=== PATIENT | male | born 1960 | race Hispanic/Latino ===

== ENCOUNTER → 2017-02-07 | Outpatient (CLI) | payer OTHER ==
[~2017-02-07] MED LIST: ASPI81TA40 PO; BRIM5DRO OU; DOCUSATE PO; DOXY100C2 PO; ERGO500014 PO; FAMO-136 PO; GABA-529 PO; GABA-531 PO; INSU100I15 SQ; INSU100I21 SQ; LEVO500T2 PO; POLY17PO4 PO; PRED5TAB PO; SANTYL AUTOSUB TO MEDIHONEY FOR INPT TP ONE; SENN-175 PO; TACR1CAP18 PO; TRAV2.5D OU; VALG450T3 PO; VITAMIN B PO
[2017-02-07 16:21] VITALS: BP 112/69
== END | disposition home or self-care (01) ==
LOC: WHH 08:00
PROVIDERS: ATTEND Podiatrist Foot & Ankle Surgery
DX: T87.89 Other complications of amputation stump (principal); E11.621 Type 2 diabetes mellitus with foot ulcer; L97.521 Non-pressure chronic ulcer of other part of left foot limited to breakdown of skin; E11.42 Type 2 diabetes mellitus with diabetic polyneuropathy; E11.52 Type 2 diabetes mellitus with diabetic peripheral angiopathy with gangrene; E11.22 Type 2 diabetes mellitus with diabetic chronic kidney disease; I13.2 Hypertensive heart and chronic kidney disease with heart failure and with stage 5 chronic kidney disease, or end stage renal disease; N18.6 End stage renal disease; I50.9 Heart failure, unspecified; E11.65 Type 2 diabetes mellitus with hyperglycemia; I25.10 Atherosclerotic heart disease of native coronary artery without angina pectoris; Z87.891 Personal history of nicotine dependence; Z95.1 Presence of aortocoronary bypass graft; Z79.52 Long term (current) use of systemic steroids; Z94.0 Kidney transplant status; Z99.2 Dependence on renal dialysis; Z79.4 Long term (current) use of insulin; Y83.5 Amputation of limb(s) as the cause of abnormal reaction of the patient, or of later complication, without mention of misadventure at the time of the procedure
CPT/HCPCS: 11042; 11045; A4450; A6209

== ENCOUNTER → 2017-02-14 | Outpatient (CLI) | payer OTHER ==
[~2017-02-14] MED LIST changes: -SANTYL AUTOSUB TO MEDIHONEY FOR INPT TP ONE
[2017-02-14 15:13] VITALS: BP 131/75
== END | disposition home or self-care (01) ==
LOC: WHH 07:50
PROVIDERS: ATTEND Podiatrist Foot & Ankle Surgery
DX: T87.89 Other complications of amputation stump (principal); E11.621 Type 2 diabetes mellitus with foot ulcer; L97.522 Non-pressure chronic ulcer of other part of left foot with fat layer exposed; L97.511 Non-pressure chronic ulcer of other part of right foot limited to breakdown of skin; E11.42 Type 2 diabetes mellitus with diabetic polyneuropathy; E11.65 Type 2 diabetes mellitus with hyperglycemia; E11.51 Type 2 diabetes mellitus with diabetic peripheral angiopathy without gangrene; E11.22 Type 2 diabetes mellitus with diabetic chronic kidney disease; I13.2 Hypertensive heart and chronic kidney disease with heart failure and with stage 5 chronic kidney disease, or end stage renal disease; N18.6 End stage renal disease; I50.9 Heart failure, unspecified; I25.10 Atherosclerotic heart disease of native coronary artery without angina pectoris; Z99.2 Dependence on renal dialysis; Z79.4 Long term (current) use of insulin; Z94.0 Kidney transplant status; Z87.891 Personal history of nicotine dependence; Z95.1 Presence of aortocoronary bypass graft; Y83.5 Amputation of limb(s) as the cause of abnormal reaction of the patient, or of later complication, without mention of misadventure at the time of the procedure
CPT/HCPCS: 11042; A6209

== ENCOUNTER → 2017-02-21 | Outpatient (CLI) | payer OTHER ==
[2017-02-21 13:08] VITALS: BP 114/72
== END | disposition home or self-care (01) ==
LOC: WHH 07:45
PROVIDERS: ATTEND Podiatrist Foot & Ankle Surgery
DX: T87.89 Other complications of amputation stump (principal); E11.621 Type 2 diabetes mellitus with foot ulcer; L97.521 Non-pressure chronic ulcer of other part of left foot limited to breakdown of skin; I25.10 Atherosclerotic heart disease of native coronary artery without angina pectoris; E11.22 Type 2 diabetes mellitus with diabetic chronic kidney disease; I13.2 Hypertensive heart and chronic kidney disease with heart failure and with stage 5 chronic kidney disease, or end stage renal disease; N18.6 End stage renal disease; I50.9 Heart failure, unspecified; E11.42 Type 2 diabetes mellitus with diabetic polyneuropathy; E11.52 Type 2 diabetes mellitus with diabetic peripheral angiopathy with gangrene; Z99.2 Dependence on renal dialysis; Z94.0 Kidney transplant status; Z79.4 Long term (current) use of insulin; Z87.891 Personal history of nicotine dependence; Z95.1 Presence of aortocoronary bypass graft; Y83.5 Amputation of limb(s) as the cause of abnormal reaction of the patient, or of later complication, without mention of misadventure at the time of the procedure
CPT/HCPCS: 11042; A6209; L3260

== ENCOUNTER 2017-02-23 10:28 | Inpatient (IN) | payer OTHER ==
[~2017-02-23] VITALS: Ht 167.6 cm; Wt 67.1 kg
[~2017-02-23 10:28] MED LIST changes: -DOXY100C2 PO; -GABA-531 PO; -LEVO500T2 PO
[2017-02-23 12:41] LABS: BASOPHILS % (AUTO) 0.2 % (0.0-5.0); EOSINOPHILS % (AUTO) 0.2 % (0.0-8.0); HEMATOCRIT 37.7 % (42-54); LYMPHOCYTES % (AUTO) 18.1 % (21.0-51.0); MEAN CORPUSCULAR HEMOGLOBIN 31.9 pg (27.0-33.0); MEAN CORPUSCULAR HGB CONC 34.9 g/dL (32.0-36.0); MEAN CORPUSCULAR VOLUME 91.2 fL (79-99); MONOCYTES % (AUTO) 9.3 % (3.0-13.0); NEUTROPHILS % (AUTO) 72.2 % (40.0-77.0); PLATELET COUNT (AUTO) 103 K/uL (130-400); RED BLOOD CELL COUNT(AUTO) 4.14 MIL/uL (4.50-6.20); RED CELL DISTRIBUTION WIDTH 14.2 % (11.0-15.5); WHITE BLOOD COUNT (AUTO) 9.3 K/uL (4.8-10.8)
[2017-02-23 12:47] LABS: POTASSIUM 3.9 mmol/L (3.5-5.1)
[2017-02-23 12:51] LABS: ALBUMIN 3.3 g/dL (3.5-5.0); BILIRUBIN,TOTAL 0.9 mg/dL (0.2-1.0); TOTAL PROTEIN, SERUM 8.2 g/dL (6.0-8.3)
[2017-02-23 12:54] LABS: INR 1.1 (0.85-1.15); PARTIAL THROMBOPLASTIN TIME 30.8 SEC (26.3-35.5); PROTHROMBIN TIME 11.5 SEC (9.6-11.6)
[2017-02-23] MEDS ORDERED: SODIUM CHLORIDE 0.9% 1000ML 1,000 ML IV SCH (13:16)
[2017-02-23] MEDS ORDERED: MEROPENEM 500MG+NS 50ML 50 ML IV SCH (13:30)
[2017-02-23] MEDS ORDERED: GUAIFENESIN-DM 200/20 MG 10 ML PO PRN (13:30)
[2017-02-23] MEDS ORDERED: MORPHINE SULFATE 4 MG/1ML SYG IV PRN (13:30)
[2017-02-23] MEDS ORDERED: ONDANSETRON HCL 4 MG/2 ML VIAL IV PRN (13:30)
[2017-02-23] MEDS ORDERED: MAG HYDROX/AL HYDROX/SIMETH ES 30 ML SUSP UDCUP PO PRN (13:30)
[2017-02-23] MEDS ORDERED: ACETAMINOPHEN 325 MG TAB PO PRN ×2 (13:30)
[2017-02-23] MEDS ORDERED: LACTULOSE 20 GM/30 ML UDCUP PO PRN (13:30)
[2017-02-23] MEDS ORDERED: NITROGLYCERIN 0.4 MG SL TAB SL PRN (13:30)
[2017-02-23] MEDS ORDERED: ACETAMINOPHEN-CODEINE 300/30MG TAB PO PRN ×2 (13:30)
[2017-02-23] MEDS ORDERED: MORPHINE SULFATE 2 MG/ML 1ML SYG IV PRN (13:30)
[2017-02-23] MEDS ORDERED: HYDRALAZINE HCL 20 MG/ML VIAL IV PRN (13:30)
[2017-02-23] MEDS ORDERED: MEROPENEM 500 MG VIAL ONE (14:23)
[2017-02-23] MEDS ORDERED: DOXYCYCLINE 100MG+NS 250ML 250 ML IV ONE (14:54)
[2017-02-23 16:00] VITALS: BP 148/80
[2017-02-23] MEDS ORDERED: GABA-531 PO (16:59)
[2017-02-23] MEDS ORDERED: SODIUM CHLORIDE 0.9% 1000ML 1,000 ML IV ONE (18:37)
[2017-02-23 19:45] VITALS: BP 136/70
[2017-02-23] MEDS: FAMOTIDINE/PF 20 MG/2 ML VIAL IV SCH (21:17)
[2017-02-23] MEDS: MEROPENEM 500 MG VIAL IVP SCH (21:18)
[2017-02-24] VITALS (7 sets, daily range): BP systolic 109–142; BP diastolic 64–87
[2017-02-24] MEDS ORDERED: DEXTROSE 50%-WATER 50 ML DISP.SYRIN IV PRN (00:45)
[2017-02-24] MEDS ORDERED: GLUCAGON 1MG KIT 1 MG ML IM PRN (00:45)
[2017-02-24] MEDS ORDERED: DOXYCYCLINE 100MG+NS 250ML 250 ML IV ONE (02:04)
[2017-02-24] MEDS: DOXYCYCLINE 100MG+NS 250ML 250 ML IV SCH ×2 (02:23→12:59)
[2017-02-24] MEDS ORDERED: LIDOCAINE HCL-MPF 1% 2ML VIAL IVP PRN (02:30)
[2017-02-24] MEDS ORDERED: POTASSIUM CHLORIDE 20MEQ/100ML 100 ML IV PRN (02:30)
[2017-02-24] MEDS ORDERED: POTASSIUM CHLORIDE 20 MEQ ERTAB PO PRN (02:30)
[2017-02-24] MEDS ORDERED: POTASSIUM CHLORIDE 10% ELIXIR 20 MEQ/15 ML UDCUP PO PRN (02:30)
[2017-02-24 05:21] LABS: BASOPHILS % (AUTO) 0.3 % (0.0-5.0); EOSINOPHILS % (AUTO) 0.7 % (0.0-8.0); MEAN CORPUSCULAR HEMOGLOBIN 31.7 pg (27.0-33.0); MEAN CORPUSCULAR HGB CONC 34.4 g/dL (32.0-36.0); MEAN CORPUSCULAR VOLUME 92.3 fL (79-99); MONOCYTES % (AUTO) 11.3 % (3.0-13.0); NEUTROPHILS % (AUTO) 47.7 % (40.0-77.0); PLATELET COUNT (AUTO) 102 K/uL (130-400); RED CELL DISTRIBUTION WIDTH 14.5 % (11.0-15.5); WHITE BLOOD COUNT (AUTO) 6.2 K/uL (4.8-10.8)
[2017-02-24 05:26] LABS: POTASSIUM 4.2 mmol/L (3.5-5.1)
[2017-02-24] MEDS: MEROPENEM 500 MG VIAL IVP SCH ×2 (05:40→14:49)
[2017-02-24] MEDS: INSULIN HUMULIN R 100 UNIT/ML 3ML SQ SCH ×4 (06:09→20:50)
[2017-02-24] MEDS: SENNOSIDES 8.6 MG TABLET PO SCH ×2 (09:00→20:44)
[2017-02-24] MEDS: PREDNISONE 5 MG TABLET PO SCH (09:00)
[2017-02-24] MEDS: TIMOLOL MALEATE 0.5% 5 ML BOTTLE OU SCH ×2 (09:00→20:43)
[2017-02-24] MEDS: BRIMONIDINE TARTRATE 0.2% 5 ML BOTTLE OU SCH ×2 (09:00→20:42)
[2017-02-24] MEDS: GABAPENTIN 100 MG CAPSULE PO SCH (09:00)
[2017-02-24] MEDS: TACROLIMUS 1 MG CAPSULE PO SCH ×2 (09:00→20:44)
[2017-02-24] MEDS: FAMOTIDINE/PF 20 MG/2 ML VIAL IV SCH ×2 (09:17→20:44)
[2017-02-24] MEDS: INSULIN LISPRO 100 UNIT/ML 3ML SQ SCH ×2 (13:59→17:16)
[2017-02-24] MEDS ORDERED: INSULIN DETEMIR 10ML 100 UNIT/ML 10ML SQ SCH (14:00)
[2017-02-24] MEDS: LATANOPROST 2.5 ML DROPS OU SCH (20:43)
[2017-02-24] MEDS: GABAPENTIN 300 MG CAPSULE PO SCH (20:43)
[2017-02-25] MEDS: MEROPENEM 500 MG VIAL IVP SCH ×4 (01:49→22:17)
[2017-02-25] MEDS: DOXYCYCLINE 100MG+NS 250ML 250 ML IV SCH ×2 (01:49→13:32)
[2017-02-25 03:00] VITALS: BP 110/63
[2017-02-25 05:09] LABS: BASOPHILS % (AUTO) 0.3 % (0.0-5.0); EOSINOPHILS % (AUTO) 0.7 % (0.0-8.0); HEMATOCRIT 35.1 % (42-54); LYMPHOCYTES % (AUTO) 36.9 % (21.0-51.0); MEAN CORPUSCULAR HGB CONC 34.5 g/dL (32.0-36.0); MEAN CORPUSCULAR VOLUME 92.6 fL (79-99); MONOCYTES % (AUTO) 9.1 % (3.0-13.0); PLATELET COUNT (AUTO) 103 K/uL (130-400); RED BLOOD CELL COUNT(AUTO) 3.78 MIL/uL (4.50-6.20); RED CELL DISTRIBUTION WIDTH 13.9 % (11.0-15.5); WHITE BLOOD COUNT (AUTO) 6.2 K/uL (4.8-10.8)
[2017-02-25 05:19] LABS: CREATININE 0.9 mg/dL (0.5-1.5); POTASSIUM 4.2 mmol/L (3.5-5.1)
[2017-02-25] MEDS: INSULIN HUMULIN R 100 UNIT/ML 3ML SQ SCH ×4 (06:20→21:00)
[2017-02-25] MEDS: INSULIN LISPRO 100 UNIT/ML 3ML SQ SCH ×3 (06:29→17:32)
[2017-02-25] MEDS ORDERED: INSULIN LISPRO 5 UNIT SQ SCH (07:30)
[2017-02-25 08:00] VITALS: BP 152/80
[2017-02-25] MEDS: TACROLIMUS 1 MG CAPSULE PO SCH ×2 (09:00→20:13)
[2017-02-25] MEDS: TIMOLOL MALEATE 0.5% 5 ML BOTTLE OU SCH ×2 (09:00→20:13)
[2017-02-25] MEDS: ASPIRIN 81 MG EC TAB PO SCH (09:00)
[2017-02-25] MEDS: BRIMONIDINE TARTRATE 0.2% 5 ML BOTTLE OU SCH ×2 (09:00→20:13)
[2017-02-25] MEDS ORDERED: INSULIN DETEMIR 10ML 100 UNIT/ML 10ML SQ SCH (09:00)
[2017-02-25] MEDS: GABAPENTIN 100 MG CAPSULE PO SCH (09:00)
[2017-02-25] MEDS: SENNOSIDES 8.6 MG TABLET PO SCH ×2 (09:00→20:13)
[2017-02-25] MEDS: PREDNISONE 5 MG TABLET PO SCH (09:00)
[2017-02-25] MEDS: ENOXAPARIN SODIUM 40 MG/0.4 ML SYRINGE SQ SCH (09:00)
[2017-02-25] MEDS ORDERED: INSULIN GLARGINE 100 UNITS/ML 10 ML VIAL SQ ONE (09:34)
[2017-02-25] MEDS: FAMOTIDINE/PF 20 MG/2 ML VIAL IV SCH ×2 (09:40→20:15)
[2017-02-25] MEDS: INSULIN GLARGINE 100 UNITS/ML 10 ML VIAL SQ SCH (09:43)
[2017-02-25 11:58] VITALS: BP 112/58
[2017-02-25 16:00] VITALS: BP 156/76
[2017-02-25 20:00] VITALS: BP 158/82
[2017-02-25] MEDS: LATANOPROST 2.5 ML DROPS OU SCH (20:13)
[2017-02-25] MEDS: GABAPENTIN 300 MG CAPSULE PO SCH (20:13)
[2017-02-26] VITALS (20 sets, daily range): BP systolic 103–159; BP diastolic 57–87
[2017-02-26] MEDS: DOXYCYCLINE 100MG+NS 250ML 250 ML IV SCH ×2 (01:43→13:30)
[2017-02-26 05:55] LABS: BASOPHILS % (AUTO) 0.3 % (0.0-5.0); EOSINOPHILS % (AUTO) 0.8 % (0.0-8.0); HEMATOCRIT 37.2 % (42-54); LYMPHOCYTES % (AUTO) 39.2 % (21.0-51.0); MEAN CORPUSCULAR HEMOGLOBIN 31.9 pg (27.0-33.0); MEAN CORPUSCULAR HGB CONC 34.7 g/dL (32.0-36.0); MEAN CORPUSCULAR VOLUME 91.7 fL (79-99); MONOCYTES % (AUTO) 9.4 % (3.0-13.0); NEUTROPHILS % (AUTO) 50.3 % (40.0-77.0); PLATELET COUNT (AUTO) 121 K/uL (130-400); RED BLOOD CELL COUNT(AUTO) 4.06 MIL/uL (4.50-6.20); RED CELL DISTRIBUTION WIDTH 14.1 % (11.0-15.5); WHITE BLOOD COUNT (AUTO) 6.8 K/uL (4.8-10.8)
[2017-02-26 06:03] LABS: CREATININE 0.8 mg/dL (0.5-1.5); POTASSIUM 4.2 mmol/L (3.5-5.1)
[2017-02-26] MEDS: MEROPENEM 500 MG VIAL IVP SCH ×3 (07:13→20:58)
[2017-02-26] MEDS: INSULIN HUMULIN R 100 UNIT/ML 3ML SQ SCH ×4 (07:14→21:06)
[2017-02-26] MEDS: INSULIN LISPRO 100 UNIT/ML 3ML SQ SCH ×3 (07:18→16:56)
[2017-02-26] MEDS: INSULIN GLARGINE 100 UNITS/ML 10 ML VIAL SQ SCH (08:00)
[2017-02-26] MEDS: TACROLIMUS 1 MG CAPSULE PO SCH ×2 (08:06→20:43)
[2017-02-26] MEDS: PREDNISONE 5 MG TABLET PO SCH (08:06)
[2017-02-26] MEDS: BRIMONIDINE TARTRATE 0.2% 5 ML BOTTLE OU SCH ×2 (08:08→21:00)
[2017-02-26] MEDS: FAMOTIDINE/PF 20 MG/2 ML VIAL IV SCH ×2 (08:09→20:57)
[2017-02-26] MEDS: ENOXAPARIN SODIUM 40 MG/0.4 ML SYRINGE SQ SCH (08:09)
[2017-02-26] MEDS: TIMOLOL MALEATE 0.5% 5 ML BOTTLE OU SCH ×2 (08:09→21:00)
[2017-02-26] MEDS: SENNOSIDES 8.6 MG TABLET PO SCH ×2 (08:09→20:43)
[2017-02-26] MEDS: ASPIRIN 81 MG EC TAB PO SCH (08:09)
[2017-02-26] MEDS: GABAPENTIN 100 MG CAPSULE PO SCH (08:10)
[2017-02-26] MEDS ORDERED: ERGOCALCIFEROL (VITAMIN D2) 50,000 UNIT CAPSULE PO SCH (09:00)
[2017-02-26] MEDS ORDERED: ONDANSETRON HCL 4 MG/2 ML VIAL ONE (12:33)
[2017-02-26] MEDS ORDERED: DEXAMETHASONE SOD PHOSPHATE 10MG/ML 1ML VIAL ONE (12:33)
[2017-02-26] MEDS ORDERED: GLYCOPYRROLATE 0.2 MG/ML 5 ML VIAL ONE (12:33)
[2017-02-26] MEDS ORDERED: LIDOCAINE PF 2% 5ML ABBOJECT ONE (12:33)
[2017-02-26] MEDS ORDERED: MIDAZOLAM HCL 1 MG/ML 2ML VIAL ONE (12:33)
[2017-02-26] MEDS ORDERED: PROPOFOL 10 MG/ML 20ML VIAL IV ONE (12:34)
[2017-02-26] MEDS ORDERED: FENTANYL CITRATE PF 50 MCG/1 ML 2ML VIAL ONE (12:34)
[2017-02-26] MEDS ORDERED: SODIUM CHLORIDE 0.9% 1000ML 1,000 ML IV ONE (12:42)
[2017-02-26] MEDS ORDERED: BUPIVACAINE/PF 0.5% 30ML VIAL ONE (12:58)
[2017-02-26] MEDS ORDERED: LIDOCAINE HCL 1% 20 ML VIAL ONE (12:58)
[2017-02-26] MEDS: GABAPENTIN 300 MG CAPSULE PO SCH (20:43)
[2017-02-26] MEDS: LATANOPROST 2.5 ML DROPS OU SCH (21:00)
[2017-02-26] MEDS: MUPIROCIN OINTMENT 22 GM TUBE TP SCH (22:51)
[2017-02-27] VITALS: BP 113/66
[2017-02-27] MEDS: DOXYCYCLINE 100MG+NS 250ML 250 ML IV SCH ×2 (01:46→15:13)
[2017-02-27 04:24] VITALS: BP 117/72
[2017-02-27] MEDS: MEROPENEM 500 MG VIAL IVP SCH ×3 (05:10→22:09)
[2017-02-27 05:52] LABS: HEMATOCRIT 38.2 % (42-54); MEAN CORPUSCULAR HEMOGLOBIN 32.5 pg (27.0-33.0); MEAN CORPUSCULAR HGB CONC 34.9 g/dL (32.0-36.0); MEAN CORPUSCULAR VOLUME 93.2 fL (79-99); NUCLEATED RED BLOOD CELLS 0.1 % (0.0-0.19); PLATELET COUNT (AUTO) 126 K/uL (130-400); RED CELL DISTRIBUTION WIDTH 14.2 % (11.0-15.5); WHITE BLOOD COUNT (AUTO) 6.8 K/uL (4.8-10.8)
[2017-02-27 06:03] LABS: CREATININE 1.1 mg/dL (0.5-1.5); POTASSIUM 4.8 mmol/L (3.5-5.1)
[2017-02-27] MEDS: INSULIN HUMULIN R 100 UNIT/ML 3ML SQ SCH ×4 (07:05→21:29)
[2017-02-27] MEDS: INSULIN LISPRO 100 UNIT/ML 3ML SQ SCH ×3 (07:09→17:26)
[2017-02-27] MEDS: INSULIN GLARGINE 100 UNITS/ML 10 ML VIAL SQ SCH (07:10)
[2017-02-27] MEDS: FAMOTIDINE/PF 20 MG/2 ML VIAL IV SCH ×2 (07:33→21:15)
[2017-02-27] MEDS: SENNOSIDES 8.6 MG TABLET PO SCH ×2 (07:33→21:00)
[2017-02-27] MEDS: PREDNISONE 5 MG TABLET PO SCH (07:34)
[2017-02-27] MEDS: GABAPENTIN 100 MG CAPSULE PO SCH (07:34)
[2017-02-27] MEDS: TACROLIMUS 1 MG CAPSULE PO SCH ×2 (07:35→21:00)
[2017-02-27] MEDS: MUPIROCIN OINTMENT 22 GM TUBE TP SCH ×2 (07:36→21:16)
[2017-02-27] MEDS: ENOXAPARIN SODIUM 40 MG/0.4 ML SYRINGE SQ SCH (07:36)
[2017-02-27] MEDS: BRIMONIDINE TARTRATE 0.2% 5 ML BOTTLE OU SCH ×2 (07:37→21:18)
[2017-02-27] MEDS: TIMOLOL MALEATE 0.5% 5 ML BOTTLE OU SCH ×2 (07:37→21:00)
[2017-02-27] MEDS: ASPIRIN 81 MG EC TAB PO SCH (07:43)
[2017-02-27 07:58] VITALS: BP 148/81
[2017-02-27 11:45] VITALS: BP 154/77
[2017-02-27 16:00] VITALS: BP 155/82
[2017-02-27] MEDS ORDERED: LATANOPROST 2.5 ML DROPS OU SCH (16:00)
[2017-02-27 20:00] VITALS: BP 131/84
[2017-02-27] MEDS: GABAPENTIN 300 MG CAPSULE PO SCH (21:00)
[2017-02-28] VITALS: BP 127/68
[2017-02-28] MEDS: DOXYCYCLINE 100MG+NS 250ML 250 ML IV SCH (01:29)
[2017-02-28 04:00] VITALS: BP 149/81
[2017-02-28] MEDS: MEROPENEM 500 MG VIAL IVP SCH (06:04)
[2017-02-28] MEDS ORDERED: INSULIN GLARGINE 100 UNITS/ML 10 ML VIAL SQ ONE (06:37)
[2017-02-28] MEDS: INSULIN HUMULIN R 100 UNIT/ML 3ML SQ SCH ×3 (07:30→16:30)
[2017-02-28] MEDS: INSULIN GLARGINE 100 UNITS/ML 10 ML VIAL SQ SCH (07:41)
[2017-02-28] MEDS: INSULIN LISPRO 100 UNIT/ML 3ML SQ SCH ×3 (07:42→16:55)
[2017-02-28 08:00] VITALS: BP 116/68
[2017-02-28] MEDS: GABAPENTIN 100 MG CAPSULE PO SCH (09:00)
[2017-02-28] MEDS: TACROLIMUS 1 MG CAPSULE PO SCH (09:00)
[2017-02-28] MEDS: ASPIRIN 81 MG EC TAB PO SCH (09:00)
[2017-02-28] MEDS: MUPIROCIN OINTMENT 22 GM TUBE TP SCH (09:00)
[2017-02-28] MEDS: BRIMONIDINE TARTRATE 0.2% 5 ML BOTTLE OU SCH (09:00)
[2017-02-28] MEDS: TIMOLOL MALEATE 0.5% 5 ML BOTTLE OU SCH (09:00)
[2017-02-28] MEDS: PREDNISONE 5 MG TABLET PO SCH (09:00)
[2017-02-28] MEDS: SENNOSIDES 8.6 MG TABLET PO SCH (09:00)
[2017-02-28 11:16] VITALS: BP 122/72
[2017-02-28] MEDS ORDERED: LEVO500T2 PO (11:39)
[2017-02-28] MEDS ORDERED: DOXY100C2 PO (11:39)
[2017-02-28] MEDS: FAMOTIDINE/PF 20 MG/2 ML VIAL IV SCH (11:47)
[2017-02-28] MEDS: ENOXAPARIN SODIUM 40 MG/0.4 ML SYRINGE SQ SCH (11:47)
[2017-02-28 16:00] VITALS: BP 114/70
== END 2017-02-28 17:02 | disposition home health service (06) | DRG 255 ==
LOC: EDH 10:28 → OBSVTOIN 10:51 → EDHIP 10:51 → 4CH 15:38
PROVIDERS: ADMIT Internal Medicine; ATTEND Internal Medicine
PROC: 0Y6T0Z0 Detachment at Right 3rd Toe, Complete, Open Approach (ICD-10-PCS; principal; 2017-02-26 13:00)
DX: E11.52 Type 2 diabetes mellitus with diabetic peripheral angiopathy with gangrene (principal); N18.6 End stage renal disease; E11.22 Type 2 diabetes mellitus with diabetic chronic kidney disease; E11.42 Type 2 diabetes mellitus with diabetic polyneuropathy; L03.115 Cellulitis of right lower limb; I12.0 Hypertensive chronic kidney disease with stage 5 chronic kidney disease or end stage renal disease; M86.9 Osteomyelitis, unspecified; Z94.0 Kidney transplant status; E11.621 Type 2 diabetes mellitus with foot ulcer; L97.529 Non-pressure chronic ulcer of other part of left foot with unspecified severity; I25.10 Atherosclerotic heart disease of native coronary artery without angina pectoris; L97.519 Non-pressure chronic ulcer of other part of right foot with unspecified severity; T25.221A Burn of second degree of right foot, initial encounter; Z95.1 Presence of aortocoronary bypass graft; Z89.439 Acquired absence of unspecified foot; Z89.429 Acquired absence of other toe(s), unspecified side; Z87.891 Personal history of nicotine dependence; Z83.3 Family history of diabetes mellitus; Z82.49 Family history of ischemic heart disease and other diseases of the circulatory system
CPT/HCPCS: 36415; 80048; 80053; 82948; 85025; 85027; 85610; 85730; 87040; 87070; 87076; 88305; 93926; A4218; G0463; J1100; J1650; J1815; J2001; J2185; J2250; J2405; J2704; J3010; J3490; J7030; J7070; J7507; J7512

== ENCOUNTER → 2017-02-23 | Outpatient (CLI) | payer OTHER ==
[2017-02-23 11:39] VITALS: BP 105/66
== END | disposition home or self-care (01) ==
LOC: WHH 08:00
PROVIDERS: ATTEND Podiatrist Foot & Ankle Surgery
DX: T87.81 Dehiscence of amputation stump (principal); E11.621 Type 2 diabetes mellitus with foot ulcer; L97.521 Non-pressure chronic ulcer of other part of left foot limited to breakdown of skin; E11.52 Type 2 diabetes mellitus with diabetic peripheral angiopathy with gangrene; E11.42 Type 2 diabetes mellitus with diabetic polyneuropathy; E11.65 Type 2 diabetes mellitus with hyperglycemia; E11.22 Type 2 diabetes mellitus with diabetic chronic kidney disease; I13.2 Hypertensive heart and chronic kidney disease with heart failure and with stage 5 chronic kidney disease, or end stage renal disease; N18.6 End stage renal disease; I50.9 Heart failure, unspecified; I25.10 Atherosclerotic heart disease of native coronary artery without angina pectoris; Z99.2 Dependence on renal dialysis; Z79.4 Long term (current) use of insulin; Z87.891 Personal history of nicotine dependence; Z95.1 Presence of aortocoronary bypass graft; Z79.52 Long term (current) use of systemic steroids; Y83.5 Amputation of limb(s) as the cause of abnormal reaction of the patient, or of later complication, without mention of misadventure at the time of the procedure
CPT/HCPCS: A6209; G0463

== ENCOUNTER 2017-03-06 10:08 | Inpatient (IN) | payer OTHER ==
[~2017-03-06] VITALS: Ht 167.6 cm; Wt 65.8 kg
[~2017-03-06 10:08] MED LIST changes: -DOCUSATE PO; +DOXY100C2 PO; -FAMO-136 PO; +GABA-531 PO; +LEVO500T2 PO; -POLY17PO4 PO; -VALG450T3 PO
[2017-03-06 11:40] LABS: BASOPHILS % (AUTO) 0.4 % (0.0-5.0); EOSINOPHILS % (AUTO) 0.3 % (0.0-8.0); HEMATOCRIT 39.7 % (42-54); LYMPHOCYTES % (AUTO) 14.9 % (21.0-51.0); MEAN CORPUSCULAR HEMOGLOBIN 32.1 pg (27.0-33.0); MEAN CORPUSCULAR HGB CONC 34.8 g/dL (32.0-36.0); MEAN CORPUSCULAR VOLUME 92.3 fL (79-99); MONOCYTES % (AUTO) 6.8 % (3.0-13.0); NEUTROPHILS % (AUTO) 77.6 % (40.0-77.0); PLATELET COUNT (AUTO) 130 K/uL (130-400); RED CELL DISTRIBUTION WIDTH 14.1 % (11.0-15.5); WHITE BLOOD COUNT (AUTO) 9.4 K/uL (4.8-10.8)
[2017-03-06 11:47] LABS: POTASSIUM 5.4 mmol/L (3.5-5.1)
[2017-03-06 11:52] LABS: ALBUMIN 3.1 g/dL (3.5-5.0); BILIRUBIN,TOTAL 1.2 mg/dL (0.2-1.0)
[2017-03-06] MEDS ORDERED: LACTULOSE 20 GM/30 ML UDCUP PO PRN (12:15)
[2017-03-06] MEDS ORDERED: ONDANSETRON HCL 4 MG/2 ML VIAL IV PRN (12:15)
[2017-03-06] MEDS ORDERED: DOXYCYCLINE 100MG+NS 250ML 250 ML IV SCH (12:15)
[2017-03-06] MEDS ORDERED: MAG HYDROX/AL HYDROX/SIMETH ES 30 ML SUSP UDCUP PO PRN (12:15)
[2017-03-06] MEDS ORDERED: GUAIFENESIN-DM 200/20 MG 10 ML PO PRN (12:15)
[2017-03-06] MEDS ORDERED: CEFTRIAXONE 1GM/D5W 50ML 50 ML IV SCH (12:15)
[2017-03-06] MEDS ORDERED: SODIUM CHLORIDE 0.9% 500ML 500 ML IV ONE (12:19)
[2017-03-06] MEDS ORDERED: MEROPENEM 1 GM VIAL ONE (12:19)
[2017-03-06] MEDS ORDERED: INSULIN HUMULIN R 100 UNIT/ML 3ML ONE (12:21)
[2017-03-06] MEDS ORDERED: CEFTRIAXONE SODIUM 1 GM IVP SCH (12:45)
[2017-03-06 12:47] LABS: ERYTHROCYTE SEDIMENTATION RATE 105 MM/HR (0-15)
[2017-03-06] MEDS ORDERED: DOXYCYCLINE 100MG+NS 250ML 250 ML IV ONE (18:17)
[2017-03-06] MEDS ORDERED: CEFTRIAXONE SODIUM 1 GM ONE (18:18)
[2017-03-06] MEDS ORDERED: FAMOTIDINE/PF 20 MG/2 ML VIAL IV ONE (20:53)
[2017-03-06] MEDS: FAMOTIDINE/PF 20 MG/2 ML VIAL IV SCH (21:00)
[2017-03-07 05:08] LABS: BASOPHILS % (AUTO) 0.3 % (0.0-5.0); EOSINOPHILS % (AUTO) 0.3 % (0.0-8.0); LYMPHOCYTES % (AUTO) 31.4 % (21.0-51.0); MEAN CORPUSCULAR HEMOGLOBIN 32.5 pg (27.0-33.0); MEAN CORPUSCULAR HGB CONC 35.2 g/dL (32.0-36.0); MEAN CORPUSCULAR VOLUME 92.5 fL (79-99); MONOCYTES % (AUTO) 9.2 % (3.0-13.0); NEUTROPHILS % (AUTO) 58.8 % (40.0-77.0); NUCLEATED RED BLOOD CELLS 0.1 % (0.0-0.19); PLATELET COUNT (AUTO) 124 K/uL (130-400); RED BLOOD CELL COUNT(AUTO) 3.78 MIL/uL (4.50-6.20); RED CELL DISTRIBUTION WIDTH 14.1 % (11.0-15.5); WHITE BLOOD COUNT (AUTO) 8.1 K/uL (4.8-10.8)
[2017-03-07 05:35] VITALS: BP 131/70
[2017-03-07 05:40] LABS: POTASSIUM 4.4 mmol/L (3.5-5.1)
[2017-03-07] MEDS: INSULIN HUMULIN R 100 UNIT/ML 3ML SQ SCH ×4 (06:08→21:00)
[2017-03-07 07:30] VITALS: BP 140/76
[2017-03-07] MEDS: TACROLIMUS 1 MG CAPSULE PO SCH ×2 (09:00→20:11)
[2017-03-07] MEDS: BRIMONIDINE TARTRATE OU SCH ×2 (09:00→20:11)
[2017-03-07] MEDS ORDERED: ACETAMINOPHEN-CODEINE 300/30MG TAB PO PRN (09:00)
[2017-03-07] MEDS: TIMOLOL OU SCH ×2 (09:00→20:11)
[2017-03-07] MEDS: INSULIN GLARGINE 100 UNITS/ML 10 ML VIAL SQ SCH (09:00)
[2017-03-07] MEDS: FAMOTIDINE/PF 20 MG/2 ML VIAL IV SCH ×2 (09:32→20:09)
[2017-03-07] MEDS: DOXYCYCLINE 100MG+NS 250ML 250 ML IV SCH ×2 (09:32→20:09)
[2017-03-07 11:00] VITALS: BP 138/71
[2017-03-07] MEDS: INSULIN LISPRO 100 UNIT/ML 3ML SQ SCH ×2 (12:48→17:54)
[2017-03-07] MEDS: ASPIRIN 81 MG EC TAB PO SCH (12:49)
[2017-03-07] MEDS: GABAPENTIN 100 MG CAPSULE PO SCH (12:49)
[2017-03-07] MEDS: SENNOSIDES 8.6 MG TABLET PO SCH ×2 (12:50→20:11)
[2017-03-07] MEDS: PREDNISONE 5 MG TABLET PO SCH (12:50)
[2017-03-07] MEDS: ENOXAPARIN SODIUM 40 MG/0.4 ML SYRINGE SQ SCH (12:51)
[2017-03-07 16:00] VITALS: BP 112/67
[2017-03-07 19:00] VITALS: BP 144/74
[2017-03-07] MEDS: CEFTRIAXONE SODIUM 1 GM IVP SCH (20:10)
[2017-03-07] MEDS: GABAPENTIN 300 MG CAPSULE PO SCH (20:11)
[2017-03-07] MEDS: TRAVOPROST OU SCH (20:11)
[2017-03-07 23:00] VITALS: BP 111/59
[2017-03-08 03:00] VITALS: BP 103/57
[2017-03-08 05:11] LABS: HEMATOCRIT 36.6 % (42-54); MEAN CORPUSCULAR HEMOGLOBIN 31.8 pg (27.0-33.0); MEAN CORPUSCULAR HGB CONC 34.7 g/dL (32.0-36.0); MEAN CORPUSCULAR VOLUME 91.7 fL (79-99); PLATELET COUNT (AUTO) 132 K/uL (130-400); RED BLOOD CELL COUNT(AUTO) 3.99 MIL/uL (4.50-6.20); RED CELL DISTRIBUTION WIDTH 13.7 % (11.0-15.5)
[2017-03-08 05:25] LABS: ALBUMIN 2.6 g/dL (3.5-5.0); BILIRUBIN,TOTAL 0.8 mg/dL (0.2-1.0); POTASSIUM 4.5 mmol/L (3.5-5.1); TOTAL PROTEIN, SERUM 7.7 g/dL (6.0-8.3)
[2017-03-08] MEDS: INSULIN HUMULIN R 100 UNIT/ML 3ML SQ SCH ×4 (06:28→21:00)
[2017-03-08] MEDS: INSULIN LISPRO 100 UNIT/ML 3ML SQ SCH ×3 (06:41→18:13)
[2017-03-08 08:00] VITALS: BP 114/63
[2017-03-08] MEDS: PREDNISONE 5 MG TABLET PO SCH (09:00)
[2017-03-08] MEDS: TACROLIMUS 1 MG CAPSULE PO SCH ×2 (09:00→19:42)
[2017-03-08] MEDS: TIMOLOL OU SCH ×2 (09:00→19:41)
[2017-03-08] MEDS: FAMOTIDINE/PF 20 MG/2 ML VIAL IV SCH ×2 (09:00→19:40)
[2017-03-08] MEDS: SENNOSIDES 8.6 MG TABLET PO SCH ×2 (09:00→19:42)
[2017-03-08] MEDS: ENOXAPARIN SODIUM 40 MG/0.4 ML SYRINGE SQ SCH (09:00)
[2017-03-08] MEDS: GABAPENTIN 100 MG CAPSULE PO SCH (09:00)
[2017-03-08] MEDS: BRIMONIDINE TARTRATE OU SCH ×2 (09:00→19:41)
[2017-03-08] MEDS: ASPIRIN 81 MG EC TAB PO SCH (09:00)
[2017-03-08] MEDS: DOXYCYCLINE 100MG+NS 250ML 250 ML IV SCH ×2 (09:20→19:40)
[2017-03-08] MEDS: INSULIN GLARGINE 100 UNITS/ML 10 ML VIAL SQ SCH (09:32)
[2017-03-08 11:18] VITALS: BP 137/78
[2017-03-08] MEDS: ACETAMINOPHEN 325 MG TAB PO PRN (14:00)
[2017-03-08 15:55] VITALS: BP 115/61
[2017-03-08 19:00] VITALS: BP 116/55
[2017-03-08] MEDS: CEFTRIAXONE SODIUM 1 GM IVP SCH (19:40)
[2017-03-08] MEDS: TRAVOPROST OU SCH (19:41)
[2017-03-08] MEDS: GABAPENTIN 300 MG CAPSULE PO SCH (19:41)
[2017-03-08 23:00] VITALS: BP 119/63
[2017-03-09] VITALS (24 sets, daily range): BP systolic 118–144; BP diastolic 64–82
[2017-03-09] MEDS: INSULIN HUMULIN R 100 UNIT/ML 3ML SQ SCH ×4 (06:57→21:12)
[2017-03-09] MEDS: INSULIN LISPRO 100 UNIT/ML 3ML SQ SCH ×3 (07:30→17:53)
[2017-03-09] MEDS ORDERED: SODIUM CHLORIDE 0.9% 1000ML 1,000 ML IV ONE (07:59)
[2017-03-09] MEDS: DOXYCYCLINE 100MG+NS 250ML 250 ML IV SCH ×2 (08:03→21:09)
[2017-03-09] MEDS ORDERED: ONDANSETRON HCL 4 MG/2 ML VIAL ONE (08:31)
[2017-03-09] MEDS ORDERED: DEXAMETHASONE SOD PHOSPHATE 10MG/ML 1ML VIAL ONE (08:31)
[2017-03-09] MEDS ORDERED: LIDOCAINE PF 2% 5ML ABBOJECT ONE (08:31)
[2017-03-09] MEDS ORDERED: GLYCOPYRROLATE 0.2 MG/ML 5 ML VIAL ONE (08:31)
[2017-03-09] MEDS ORDERED: FENTANYL CITRATE PF 50 MCG/1 ML 2ML VIAL ONE (08:32)
[2017-03-09] MEDS ORDERED: PROPOFOL 10 MG/ML 20ML VIAL IV ONE (08:32)
[2017-03-09] MEDS ORDERED: MIDAZOLAM HCL 1 MG/ML 2ML VIAL ONE (08:32)
[2017-03-09] MEDS ORDERED: LIDOCAINE HCL 1% MDV 50ML VIAL ONE (08:46)
[2017-03-09] MEDS ORDERED: BUPIVACAINE/PF 0.25% 30ML VIAL IJ ONE (08:46)
[2017-03-09] MEDS: TACROLIMUS 1 MG CAPSULE PO SCH ×2 (09:00→21:11)
[2017-03-09] MEDS: BRIMONIDINE TARTRATE OU SCH ×2 (09:00→21:00)
[2017-03-09] MEDS: TIMOLOL OU SCH ×2 (09:00→21:00)
[2017-03-09] MEDS: SENNOSIDES 8.6 MG TABLET PO SCH ×2 (09:00→21:08)
[2017-03-09] MEDS: PREDNISONE 5 MG TABLET PO SCH (09:00)
[2017-03-09] MEDS: ENOXAPARIN SODIUM 40 MG/0.4 ML SYRINGE SQ SCH (09:00)
[2017-03-09] MEDS: INSULIN GLARGINE 100 UNITS/ML 10 ML VIAL SQ SCH (09:00)
[2017-03-09] MEDS: ASPIRIN 81 MG EC TAB PO SCH (09:00)
[2017-03-09] MEDS: FAMOTIDINE/PF 20 MG/2 ML VIAL IV SCH ×2 (09:00→21:09)
[2017-03-09] MEDS: GABAPENTIN 100 MG CAPSULE PO SCH (09:00)
[2017-03-09] MEDS ORDERED: EPHEDRINE SULFATE 50 MG/ML AMPULE ONE (09:13)
[2017-03-09] MEDS ORDERED: MEPERIDINE-PF 50 MG/ML SYG ONE (10:02)
[2017-03-09] MEDS: TRAVOPROST OU SCH (21:00)
[2017-03-09] MEDS: CEFTRIAXONE SODIUM 1 GM IVP SCH (21:08)
[2017-03-09] MEDS: GABAPENTIN 300 MG CAPSULE PO SCH (21:08)
[2017-03-10] VITALS (8 sets, daily range): BP systolic 89–157; BP diastolic 54–84
[2017-03-10 05:04] LABS: HEMATOCRIT 34.2 % (42-54); MEAN CORPUSCULAR HEMOGLOBIN 32.1 pg (27.0-33.0); MEAN CORPUSCULAR HGB CONC 34.9 g/dL (32.0-36.0); MEAN CORPUSCULAR VOLUME 92.1 fL (79-99); PLATELET COUNT (AUTO) 144 K/uL (130-400); RED BLOOD CELL COUNT(AUTO) 3.71 MIL/uL (4.50-6.20); RED CELL DISTRIBUTION WIDTH 13.8 % (11.0-15.5)
[2017-03-10 05:25] LABS: CREATININE 1.1 mg/dL (0.5-1.5); POTASSIUM 4.3 mmol/L (3.5-5.1)
[2017-03-10] MEDS: INSULIN HUMULIN R 100 UNIT/ML 3ML SQ SCH ×2 (06:32→21:00)
[2017-03-10] MEDS: PREDNISONE 5 MG TABLET PO SCH (09:00)
[2017-03-10] MEDS: GABAPENTIN 100 MG CAPSULE PO SCH (09:00)
[2017-03-10] MEDS: TACROLIMUS 1 MG CAPSULE PO SCH ×2 (09:00→21:00)
[2017-03-10] MEDS: ASPIRIN 81 MG EC TAB PO SCH (09:00)
[2017-03-10] MEDS: INSULIN LISPRO 100 UNIT/ML 3ML SQ SCH (11:30)
[2017-03-10 16:36] LABS: INR 1.12 (0.85-1.15); PROTHROMBIN TIME 11.7 SEC (9.6-11.6)
[2017-03-10] MEDS: GABAPENTIN 300 MG CAPSULE PO SCH (21:00)
[2017-03-10] MEDS: CEFTRIAXONE SODIUM 1 GM IVP SCH (21:00)
[2017-03-10] MEDS: BRIMONIDINE TARTRATE OU SCH (21:00)
[2017-03-10] MEDS: FAMOTIDINE/PF 20 MG/2 ML VIAL IV SCH (21:00)
[2017-03-10] MEDS: DOXYCYCLINE 100MG+NS 250ML 250 ML IV SCH (21:00)
[2017-03-10] MEDS: TIMOLOL OU SCH (21:00)
[2017-03-10] MEDS: SENNOSIDES 8.6 MG TABLET PO SCH (21:00)
[2017-03-10] MEDS: TRAVOPROST OU SCH (21:00)
[2017-03-11] VITALS (7 sets, daily range): BP systolic 117–170; BP diastolic 53–88
[2017-03-11 05:35] LABS: HEMATOCRIT 33.5 % (42-54); MEAN CORPUSCULAR HEMOGLOBIN 31.6 pg (27.0-33.0); MEAN CORPUSCULAR HGB CONC 34.4 g/dL (32.0-36.0); NUCLEATED RED BLOOD CELLS 0.1 % (0.0-0.19); PLATELET COUNT (AUTO) 130 K/uL (130-400); RED BLOOD CELL COUNT(AUTO) 3.65 MIL/uL (4.50-6.20); RED CELL DISTRIBUTION WIDTH 13.9 % (11.0-15.5)
[2017-03-11 05:50] LABS: CREATININE 0.9 mg/dL (0.5-1.5); POTASSIUM 4.3 mmol/L (3.5-5.1)
[2017-03-11 05:51] LABS: BAND NEUTROPHILS % (MANUAL) 24 % (0-2); EOSINOPHILS % (MANUAL) 2 % (1-6); LYMPHOCYTES % (MANUAL) 24 % (22-44); MAN.DIFF COMMENT-IMPRESSION MANUAL DIFFERENTIAL; MONOCYTES % (MANUAL) 7 % (2-9); PLATELET MORPHOLOGY COMMENT SLIGHTLY DECREASED; SEGMENTED NEUTROPHILS % 43 % (40-70)
[2017-03-11] MEDS: INSULIN HUMULIN R 100 UNIT/ML 3ML SQ SCH ×4 (06:14→20:39)
[2017-03-11] MEDS: ACETAMINOPHEN-CODEINE 300/30MG TAB PO PRN ×2 (08:30→23:28)
[2017-03-11] MEDS: DOXYCYCLINE 100MG+NS 250ML 250 ML IV SCH ×2 (08:31→20:38)
[2017-03-11] MEDS: FAMOTIDINE/PF 20 MG/2 ML VIAL IV SCH ×2 (08:31→20:38)
[2017-03-11] MEDS: INSULIN LISPRO 100 UNIT/ML 3ML SQ SCH ×2 (08:34→17:11)
[2017-03-11] MEDS ORDERED: INSULIN GLARGINE 100 UNITS/ML 10 ML VIAL SQ ONE (08:35)
[2017-03-11] MEDS: ENOXAPARIN SODIUM 40 MG/0.4 ML SYRINGE SQ SCH ×2 (08:46→09:00)
[2017-03-11] MEDS: INSULIN GLARGINE 100 UNITS/ML 10 ML VIAL SQ SCH (09:00)
[2017-03-11] MEDS: TIMOLOL OU SCH ×2 (09:00→20:38)
[2017-03-11] MEDS: BRIMONIDINE TARTRATE OU SCH ×2 (09:00→20:38)
[2017-03-11] MEDS: PREDNISONE 5 MG TABLET PO SCH (09:00)
[2017-03-11] MEDS: ASPIRIN 81 MG EC TAB PO SCH (09:00)
[2017-03-11] MEDS: SENNOSIDES 8.6 MG TABLET PO SCH ×2 (09:00→20:38)
[2017-03-11] MEDS: TACROLIMUS 1 MG CAPSULE PO SCH ×2 (09:00→20:38)
[2017-03-11] MEDS: GABAPENTIN 100 MG CAPSULE PO SCH (09:10)
[2017-03-11] MEDS ORDERED: CEFTAZIDIME 1GM+NS 50ML 50 ML IV SCH (18:00)
[2017-03-11] MEDS: CEFTAZIDIME PENTAHYDRATE 1 GM/VIAL IVP SCH (18:19)
[2017-03-11] MEDS: GABAPENTIN 300 MG CAPSULE PO SCH (20:38)
[2017-03-11] MEDS: TRAVOPROST OU SCH (20:38)
[2017-03-12] VITALS (7 sets, daily range): BP systolic 133–170; BP diastolic 59–84
[2017-03-12] MEDS: CEFTAZIDIME PENTAHYDRATE 1 GM/VIAL IVP SCH ×2 (02:00→11:44)
[2017-03-12] MEDS ORDERED: PHARMACY COMMUNICATION MISC SCH (05:45)
[2017-03-12] MEDS: INSULIN HUMULIN R 100 UNIT/ML 3ML SQ SCH ×4 (06:37→20:42)
[2017-03-12 06:40] LABS: MEAN CORPUSCULAR HEMOGLOBIN 31.8 pg (27.0-33.0); MEAN CORPUSCULAR HGB CONC 34.5 g/dL (32.0-36.0); MEAN CORPUSCULAR VOLUME 92.2 fL (79-99); PLATELET COUNT (AUTO) 125 K/uL (130-400); RED BLOOD CELL COUNT(AUTO) 3.58 MIL/uL (4.50-6.20); RED CELL DISTRIBUTION WIDTH 13.9 % (11.0-15.5); WHITE BLOOD COUNT (AUTO) 8.2 K/uL (4.8-10.8)
[2017-03-12 06:46] LABS: CREATININE 0.9 mg/dL (0.5-1.5); POTASSIUM 4.3 mmol/L (3.5-5.1)
[2017-03-12] MEDS ORDERED: INSULIN GLARGINE 100 UNITS/ML 10 ML VIAL SQ ONE (08:05)
[2017-03-12] MEDS: DOXYCYCLINE 100MG+NS 250ML 250 ML IV SCH (08:14)
[2017-03-12] MEDS: FAMOTIDINE/PF 20 MG/2 ML VIAL IV SCH ×2 (08:14→20:39)
[2017-03-12] MEDS: ENOXAPARIN SODIUM 40 MG/0.4 ML SYRINGE SQ SCH (08:14)
[2017-03-12] MEDS: INSULIN LISPRO 100 UNIT/ML 3ML SQ SCH ×3 (08:40→16:55)
[2017-03-12] MEDS: INSULIN GLARGINE 100 UNITS/ML 10 ML VIAL SQ SCH (08:41)
[2017-03-12] MEDS: SENNOSIDES 8.6 MG TABLET PO SCH ×2 (09:00→20:42)
[2017-03-12] MEDS: GABAPENTIN 100 MG CAPSULE PO SCH (09:00)
[2017-03-12] MEDS: ASPIRIN 81 MG EC TAB PO SCH (09:00)
[2017-03-12] MEDS: BRIMONIDINE TARTRATE OU SCH ×2 (09:00→20:41)
[2017-03-12] MEDS: PREDNISONE 5 MG TABLET PO SCH (09:00)
[2017-03-12] MEDS: TIMOLOL OU SCH ×2 (09:00→20:41)
[2017-03-12] MEDS: TACROLIMUS 1 MG CAPSULE PO SCH ×2 (09:00→20:42)
[2017-03-12 09:40] LABS: EOSINOPHILS % (MANUAL) 1 % (1-6); LYMPHOCYTES % (MANUAL) 27 % (22-44); MONOCYTES % (MANUAL) 6 % (2-9); REACTIVE LYMPHOCYTES 1 % (0-0); SEGMENTED NEUTROPHILS % 65 % (40-70)
[2017-03-12 09:41] LABS: MAN.DIFF COMMENT-IMPRESSION MANUAL DIFFERENTIAL
[2017-03-12 09:42] LABS: PLATELET MORPHOLOGY COMMENT SLIGHTLY DECREASED
[2017-03-12] MEDS ORDERED: TIGECYCLINE 100 MG in SODIUM CHLORIDE 0.9% 100 ML IV SCH (16:00)
[2017-03-12] MEDS: AMOXICILLIN 500 MG CAPSULE PO SCH (17:00)
[2017-03-12] MEDS ORDERED: HYDRALAZINE HCL 20 MG/ML VIAL IV PRN (18:30)
[2017-03-12] MEDS: ACETAMINOPHEN 325 MG TAB PO PRN (20:39)
[2017-03-12] MEDS: TRAVOPROST OU SCH (20:41)
[2017-03-12] MEDS: GABAPENTIN 300 MG CAPSULE PO SCH (20:42)
[2017-03-12] MEDS: LEVOFLOXACIN 750 MG/D5W 150 ML 150 ML IV SCH (21:17)
[2017-03-13] MEDS: AMOXICILLIN 500 MG CAPSULE PO SCH ×3 (00:06→17:55)
[2017-03-13 03:17] VITALS: BP 157/86
[2017-03-13] MEDS: INSULIN HUMULIN R 100 UNIT/ML 3ML SQ SCH ×4 (06:20→21:52)
[2017-03-13] MEDS: INSULIN LISPRO 100 UNIT/ML 3ML SQ SCH ×3 (07:51→18:58)
[2017-03-13 07:55] VITALS: BP 148/74
[2017-03-13] MEDS: PREDNISONE 5 MG TABLET PO SCH (09:00)
[2017-03-13] MEDS: ASPIRIN 81 MG EC TAB PO SCH (09:00)
[2017-03-13] MEDS: SENNOSIDES 8.6 MG TABLET PO SCH ×2 (09:00→21:40)
[2017-03-13] MEDS: BRIMONIDINE TARTRATE OU SCH ×2 (09:00→21:00)
[2017-03-13] MEDS: TIMOLOL OU SCH ×2 (09:00→21:00)
[2017-03-13] MEDS: TACROLIMUS 1 MG CAPSULE PO SCH ×2 (09:00→21:00)
[2017-03-13] MEDS: FAMOTIDINE/PF 20 MG/2 ML VIAL IV SCH ×2 (11:07→21:38)
[2017-03-13] MEDS: ENOXAPARIN SODIUM 40 MG/0.4 ML SYRINGE SQ SCH (11:12)
[2017-03-13] MEDS: ACETAMINOPHEN 325 MG TAB PO PRN ×2 (11:12→21:38)
[2017-03-13 11:30] VITALS: BP 131/63
[2017-03-13] MEDS ORDERED: INSULIN GLARGINE 100 UNITS/ML 10 ML VIAL SQ ONE (11:52)
[2017-03-13] MEDS: [UNRECOGNIZED DRUG - OTHER] IV SCH ×2 (12:42→21:39)
[2017-03-13] MEDS: TIGECYCLINE 50 MG IV SCH ×2 (12:42→21:39)
[2017-03-13] MEDS: INSULIN GLARGINE 100 UNITS/ML 10 ML VIAL SQ SCH (12:54)
[2017-03-13 16:00] VITALS: BP 133/61
[2017-03-13] MEDS: LEVOFLOXACIN 750 MG/D5W 150 ML 150 ML IV SCH (17:56)
[2017-03-13 19:35] VITALS: BP 170/82
[2017-03-13] MEDS: GABAPENTIN 300 MG CAPSULE PO SCH (21:00)
[2017-03-13] MEDS: TRAVOPROST OU SCH (21:00)
[2017-03-13 23:44] VITALS: BP 114/45
[2017-03-14] MEDS: AMOXICILLIN 500 MG CAPSULE PO SCH ×3 (02:12→17:58)
[2017-03-14 03:52] VITALS: BP 136/65
[2017-03-14] MEDS: INSULIN HUMULIN R 100 UNIT/ML 3ML SQ SCH ×4 (06:18→22:21)
[2017-03-14 08:00] VITALS: BP 122/66
[2017-03-14] MEDS: INSULIN LISPRO 100 UNIT/ML 3ML SQ SCH ×3 (08:00→17:57)
[2017-03-14] MEDS: ASPIRIN 81 MG EC TAB PO SCH (09:00)
[2017-03-14] MEDS: TACROLIMUS 1 MG CAPSULE PO SCH ×2 (09:00→21:00)
[2017-03-14] MEDS: GABAPENTIN 100 MG CAPSULE PO SCH (09:00)
[2017-03-14] MEDS: INSULIN GLARGINE 100 UNITS/ML 10 ML VIAL SQ SCH (09:00)
[2017-03-14] MEDS: SENNOSIDES 8.6 MG TABLET PO SCH ×2 (09:00→21:00)
[2017-03-14] MEDS: PREDNISONE 5 MG TABLET PO SCH (09:00)
[2017-03-14] MEDS: FAMOTIDINE/PF 20 MG/2 ML VIAL IV SCH ×2 (09:00→22:32)
[2017-03-14] MEDS: ENOXAPARIN SODIUM 40 MG/0.4 ML SYRINGE SQ SCH (10:25)
[2017-03-14] MEDS: TIMOLOL OU SCH ×2 (10:32→21:00)
[2017-03-14] MEDS: BRIMONIDINE TARTRATE OU SCH ×2 (10:32→21:00)
[2017-03-14] MEDS: TIGECYCLINE 50 MG IV SCH ×2 (10:57→22:32)
[2017-03-14] MEDS: [UNRECOGNIZED DRUG - OTHER] IV SCH ×2 (10:57→22:32)
[2017-03-14 12:00] VITALS: BP 149/62
[2017-03-14] MEDS: ACETAMINOPHEN 325 MG TAB PO PRN (12:59)
[2017-03-14 16:00] VITALS: BP 140/74
[2017-03-14] MEDS ORDERED: PHARMACY COMMUNICATION MISC SCH (16:30)
[2017-03-14] MEDS ORDERED: INSULIN LISPRO 100 UNIT/ML 3ML SQ ONE (17:46)
[2017-03-14] MEDS: LEVOFLOXACIN 750 MG/D5W 150 ML 150 ML IV SCH (17:58)
[2017-03-14 19:40] VITALS: BP 137/62
[2017-03-14] MEDS: GABAPENTIN 300 MG CAPSULE PO SCH (21:00)
[2017-03-14] MEDS: TRAVOPROST OU SCH (21:00)
[2017-03-14 23:20] VITALS: BP 138/75
[2017-03-15] MEDS: AMOXICILLIN 500 MG CAPSULE PO SCH ×3 (01:53→17:49)
[2017-03-15 03:30] VITALS: BP 135/58
[2017-03-15 05:03] LABS: HEMATOCRIT 33.7 % (42-54); MEAN CORPUSCULAR HEMOGLOBIN 32.4 pg (27.0-33.0); MEAN CORPUSCULAR HGB CONC 35.2 g/dL (32.0-36.0); MEAN CORPUSCULAR VOLUME 92.1 fL (79-99); PLATELET COUNT (AUTO) 220 K/uL (130-400); RED BLOOD CELL COUNT(AUTO) 3.66 MIL/uL (4.50-6.20); WHITE BLOOD COUNT (AUTO) 10.2 K/uL (4.8-10.8)
[2017-03-15 05:15] LABS: CREATININE 0.9 mg/dL (0.5-1.5); POTASSIUM 5.1 mmol/L (3.5-5.1)
[2017-03-15] MEDS: ACETAMINOPHEN 325 MG TAB PO PRN ×2 (06:38→22:23)
[2017-03-15] MEDS: INSULIN HUMULIN R 100 UNIT/ML 3ML SQ SCH ×4 (06:38→22:20)
[2017-03-15 08:00] VITALS: BP 157/74
[2017-03-15] MEDS: INSULIN LISPRO 100 UNIT/ML 3ML SQ SCH ×3 (08:00→17:51)
[2017-03-15] MEDS: TACROLIMUS 1 MG CAPSULE PO SCH ×2 (09:00→21:00)
[2017-03-15] MEDS: SENNOSIDES 8.6 MG TABLET PO SCH ×2 (09:00→21:00)
[2017-03-15] MEDS: TIMOLOL OU SCH ×2 (09:00→21:00)
[2017-03-15] MEDS: TIGECYCLINE 50 MG IV SCH ×2 (09:00→13:48)
[2017-03-15] MEDS: GABAPENTIN 100 MG CAPSULE PO SCH (09:00)
[2017-03-15] MEDS: PREDNISONE 5 MG TABLET PO SCH (09:00)
[2017-03-15] MEDS: INSULIN GLARGINE 100 UNITS/ML 10 ML VIAL SQ SCH (09:00)
[2017-03-15] MEDS: BRIMONIDINE TARTRATE OU SCH ×2 (09:00→21:00)
[2017-03-15] MEDS: [UNRECOGNIZED DRUG - OTHER] IV SCH ×2 (09:00→13:48)
[2017-03-15] MEDS: FAMOTIDINE/PF 20 MG/2 ML VIAL IV SCH ×2 (09:00→22:22)
[2017-03-15] MEDS: ASPIRIN 81 MG EC TAB PO SCH (09:00)
[2017-03-15] MEDS: ENOXAPARIN SODIUM 40 MG/0.4 ML SYRINGE SQ SCH (09:17)
[2017-03-15 11:36] VITALS: BP 140/67
[2017-03-15 16:00] VITALS: BP 134/60
[2017-03-15] MEDS: LEVOFLOXACIN 750 MG/D5W 150 ML 150 ML IV SCH (17:49)
[2017-03-15 19:43] VITALS: BP 149/65
[2017-03-15] MEDS: GABAPENTIN 300 MG CAPSULE PO SCH (21:00)
[2017-03-15] MEDS: TRAVOPROST OU SCH (21:00)
[2017-03-15 23:57] VITALS: BP 116/57
[2017-03-16] MEDS: AMOXICILLIN 500 MG CAPSULE PO SCH ×3 (01:48→16:35)
[2017-03-16] MEDS: [UNRECOGNIZED DRUG - OTHER] IV SCH ×2 (01:51→13:25)
[2017-03-16] MEDS: TIGECYCLINE 50 MG IV SCH ×2 (01:51→13:25)
[2017-03-16 04:47] VITALS: BP 115/48
[2017-03-16] MEDS: INSULIN HUMULIN R 100 UNIT/ML 3ML SQ SCH ×4 (06:29→21:00)
[2017-03-16 08:00] VITALS: BP 114/70
[2017-03-16] MEDS: BRIMONIDINE TARTRATE OU SCH ×2 (09:00→21:00)
[2017-03-16] MEDS: TIMOLOL OU SCH ×2 (09:00→21:00)
[2017-03-16] MEDS: INSULIN GLARGINE 100 UNITS/ML 10 ML VIAL SQ SCH (09:43)
[2017-03-16] MEDS: INSULIN LISPRO 100 UNIT/ML 3ML SQ SCH ×3 (09:44→16:31)
[2017-03-16] MEDS: ASPIRIN 81 MG EC TAB PO SCH (09:45)
[2017-03-16] MEDS: SENNOSIDES 8.6 MG TABLET PO SCH ×2 (09:46→21:00)
[2017-03-16] MEDS: TACROLIMUS 1 MG CAPSULE PO SCH ×2 (09:46→21:00)
[2017-03-16] MEDS: GABAPENTIN 100 MG CAPSULE PO SCH (09:46)
[2017-03-16] MEDS: PREDNISONE 5 MG TABLET PO SCH (09:46)
[2017-03-16] MEDS: FAMOTIDINE/PF 20 MG/2 ML VIAL IV SCH ×2 (09:46→21:32)
[2017-03-16] MEDS: ENOXAPARIN SODIUM 40 MG/0.4 ML SYRINGE SQ SCH (09:47)
[2017-03-16 11:52] VITALS: BP 153/81
[2017-03-16 15:53] VITALS: BP 147/77
[2017-03-16] MEDS: LEVOFLOXACIN 750 MG/D5W 150 ML 150 ML IV SCH (16:35)
[2017-03-16 19:33] VITALS: BP 117/63
[2017-03-16] MEDS: TRAVOPROST OU SCH (21:00)
[2017-03-16] MEDS: GABAPENTIN 300 MG CAPSULE PO SCH (21:00)
[2017-03-16 23:30] VITALS: BP 117/60
[2017-03-17] MEDS: AMOXICILLIN 500 MG CAPSULE PO SCH ×4 (00:05→23:56)
[2017-03-17] MEDS: [UNRECOGNIZED DRUG - OTHER] IV SCH ×2 (01:59→14:51)
[2017-03-17] MEDS: TIGECYCLINE 50 MG IV SCH ×2 (01:59→14:51)
[2017-03-17 04:00] VITALS: BP 119/52
[2017-03-17 06:36] LABS: HEMATOCRIT 34.8 % (42-54); MEAN CORPUSCULAR HEMOGLOBIN 31.8 pg (27.0-33.0); MEAN CORPUSCULAR HGB CONC 34.6 g/dL (32.0-36.0); PLATELET COUNT (AUTO) 164 K/uL (130-400); RED BLOOD CELL COUNT(AUTO) 3.79 MIL/uL (4.50-6.20); RED CELL DISTRIBUTION WIDTH 14.2 % (11.0-15.5); WHITE BLOOD COUNT (AUTO) 9.9 K/uL (4.8-10.8)
[2017-03-17] MEDS: INSULIN HUMULIN R 100 UNIT/ML 3ML SQ SCH ×4 (06:37→21:00)
[2017-03-17 06:46] LABS: POTASSIUM 4.4 mmol/L (3.5-5.1)
[2017-03-17 08:00] VITALS: BP 112/70
[2017-03-17] MEDS: INSULIN LISPRO 100 UNIT/ML 3ML SQ SCH ×3 (08:00→16:57)
[2017-03-17] MEDS: GABAPENTIN 100 MG CAPSULE PO SCH (09:00)
[2017-03-17] MEDS: ASPIRIN 81 MG EC TAB PO SCH (09:00)
[2017-03-17] MEDS: BRIMONIDINE TARTRATE OU SCH ×2 (09:00→20:42)
[2017-03-17] MEDS: PREDNISONE 5 MG TABLET PO SCH (09:00)
[2017-03-17] MEDS: TACROLIMUS 1 MG CAPSULE PO SCH ×2 (09:00→20:43)
[2017-03-17] MEDS: SENNOSIDES 8.6 MG TABLET PO SCH ×2 (09:00→20:43)
[2017-03-17] MEDS: TIMOLOL OU SCH ×2 (09:00→20:42)
[2017-03-17] MEDS: FAMOTIDINE/PF 20 MG/2 ML VIAL IV SCH ×2 (10:25→20:42)
[2017-03-17] MEDS: ENOXAPARIN SODIUM 40 MG/0.4 ML SYRINGE SQ SCH (10:27)
[2017-03-17] MEDS: INSULIN GLARGINE 100 UNITS/ML 10 ML VIAL SQ SCH (10:35)
[2017-03-17] MEDS: ACETAMINOPHEN 325 MG TAB PO PRN (10:37)
[2017-03-17 11:40] VITALS: BP 156/85
[2017-03-17 16:00] VITALS: BP 118/66
[2017-03-17] MEDS: LEVOFLOXACIN 750 MG/D5W 150 ML 150 ML IV SCH (16:59)
[2017-03-17 19:52] VITALS: BP 129/67
[2017-03-17] MEDS: TRAVOPROST OU SCH (20:42)
[2017-03-17] MEDS: GABAPENTIN 300 MG CAPSULE PO SCH (20:43)
[2017-03-18] VITALS (7 sets, daily range): BP systolic 99–159; BP diastolic 60–78
[2017-03-18] MEDS: ACETAMINOPHEN 325 MG TAB PO PRN ×2 (00:02→22:37)
[2017-03-18] MEDS: TIGECYCLINE 50 MG IV SCH ×2 (02:42→15:47)
[2017-03-18] MEDS: [UNRECOGNIZED DRUG - OTHER] IV SCH ×2 (02:42→15:47)
[2017-03-18] MEDS: INSULIN HUMULIN R 100 UNIT/ML 3ML SQ SCH ×4 (07:23→21:00)
[2017-03-18] MEDS: TACROLIMUS 1 MG CAPSULE PO SCH ×2 (09:00→21:00)
[2017-03-18] MEDS: TIMOLOL OU SCH ×2 (09:00→21:00)
[2017-03-18] MEDS: SENNOSIDES 8.6 MG TABLET PO SCH ×2 (09:00→21:00)
[2017-03-18] MEDS: ASPIRIN 81 MG EC TAB PO SCH (09:00)
[2017-03-18] MEDS: PREDNISONE 5 MG TABLET PO SCH (09:00)
[2017-03-18] MEDS: BRIMONIDINE TARTRATE OU SCH ×2 (09:00→21:00)
[2017-03-18] MEDS: GABAPENTIN 100 MG CAPSULE PO SCH (09:00)
[2017-03-18] MEDS: FAMOTIDINE/PF 20 MG/2 ML VIAL IV SCH ×2 (09:53→22:17)
[2017-03-18] MEDS: AMOXICILLIN 500 MG CAPSULE PO SCH ×3 (09:53→23:43)
[2017-03-18] MEDS: ENOXAPARIN SODIUM 40 MG/0.4 ML SYRINGE SQ SCH (09:54)
[2017-03-18] MEDS: INSULIN GLARGINE 100 UNITS/ML 10 ML VIAL SQ SCH (10:00)
[2017-03-18] MEDS: INSULIN LISPRO 100 UNIT/ML 3ML SQ SCH ×3 (10:01→16:47)
[2017-03-18] MEDS: LEVOFLOXACIN 750 MG/D5W 150 ML 150 ML IV SCH (16:46)
[2017-03-18] MEDS: GABAPENTIN 300 MG CAPSULE PO SCH (21:00)
[2017-03-18] MEDS: TRAVOPROST OU SCH (21:00)
[2017-03-18] MEDS: LACTOBACILLUS RHAMNOSUS GG 1 EACH CAP.SPRINK PO SCH (22:17)
[2017-03-19] MEDS: [UNRECOGNIZED DRUG - OTHER] IV SCH ×2 (03:22→14:43)
[2017-03-19] MEDS: TIGECYCLINE 50 MG IV SCH ×2 (03:22→14:43)
[2017-03-19 03:45] VITALS: BP 107/63
[2017-03-19] MEDS: INSULIN HUMULIN R 100 UNIT/ML 3ML SQ SCH ×4 (06:35→21:13)
[2017-03-19 07:00] LABS: HEMATOCRIT 35.8 % (42-54); MEAN CORPUSCULAR HGB CONC 34.6 g/dL (32.0-36.0); MEAN CORPUSCULAR VOLUME 92.4 fL (79-99); PLATELET COUNT (AUTO) 137 K/uL (130-400); RED BLOOD CELL COUNT(AUTO) 3.88 MIL/uL (4.50-6.20); WHITE BLOOD COUNT (AUTO) 9.2 K/uL (4.8-10.8)
[2017-03-19 07:07] LABS: CREATININE 0.9 mg/dL (0.5-1.5); POTASSIUM 3.9 mmol/L (3.5-5.1)
[2017-03-19] MEDS: INSULIN LISPRO 100 UNIT/ML 3ML SQ SCH ×3 (08:00→17:00)
[2017-03-19] MEDS: ASPIRIN 81 MG EC TAB PO SCH (09:00)
[2017-03-19] MEDS: BRIMONIDINE TARTRATE OU SCH ×2 (09:00→21:00)
[2017-03-19] MEDS: SENNOSIDES 8.6 MG TABLET PO SCH ×2 (09:00→21:00)
[2017-03-19] MEDS: LACTOBACILLUS RHAMNOSUS GG 1 EACH CAP.SPRINK PO SCH ×2 (09:00→21:23)
[2017-03-19] MEDS: PREDNISONE 5 MG TABLET PO SCH (09:00)
[2017-03-19] MEDS: TIMOLOL OU SCH ×2 (09:00→21:00)
[2017-03-19] MEDS: FAMOTIDINE/PF 20 MG/2 ML VIAL IV SCH ×2 (09:00→21:30)
[2017-03-19] MEDS: TACROLIMUS 1 MG CAPSULE PO SCH ×2 (09:00→21:00)
[2017-03-19] MEDS: GABAPENTIN 100 MG CAPSULE PO SCH (09:00)
[2017-03-19 09:26] VITALS: BP 121/60
[2017-03-19] MEDS: AMOXICILLIN 500 MG CAPSULE PO SCH ×2 (10:16→18:14)
[2017-03-19] MEDS: ENOXAPARIN SODIUM 40 MG/0.4 ML SYRINGE SQ SCH (10:17)
[2017-03-19] MEDS: INSULIN GLARGINE 100 UNITS/ML 10 ML VIAL SQ SCH (10:19)
[2017-03-19 11:00] VITALS: BP 143/76
[2017-03-19 16:00] VITALS: BP 133/75
[2017-03-19] MEDS: LEVOFLOXACIN 750 MG/D5W 150 ML 150 ML IV SCH (18:14)
[2017-03-19 20:00] VITALS: BP 140/75
[2017-03-19] MEDS: GABAPENTIN 300 MG CAPSULE PO SCH (21:00)
[2017-03-19] MEDS: TRAVOPROST OU SCH (21:00)
== END 2017-03-19 23:40 | DRG 474 ==
LOC: EDH 10:08 → EDHIP 12:15 → 3DH 03-07 05:46
PROVIDERS: ADMIT Family Medicine; ATTEND Family Medicine
PROC: 0Y6M0ZB Detachment at Right Foot, Partial 2nd Ray, Open Approach (ICD-10-PCS; 2017-03-09)
PROC: 0Y6M0ZC Detachment at Right Foot, Partial 3rd Ray, Open Approach (ICD-10-PCS; 2017-03-09)
PROC: 0Y6M0ZD Detachment at Right Foot, Partial 4th Ray, Open Approach (ICD-10-PCS; 2017-03-09)
PROC: 0Y6M0ZF Detachment at Right Foot, Partial 5th Ray, Open Approach (ICD-10-PCS; 2017-03-09)
PROC: 0Y6M0Z9 Detachment at Right Foot, Partial 1st Ray, Open Approach (ICD-10-PCS; principal; 2017-03-09 08:00)
DX: T87.44 Infection of amputation stump, left lower extremity (principal); N18.6 End stage renal disease; E11.22 Type 2 diabetes mellitus with diabetic chronic kidney disease; E11.40 Type 2 diabetes mellitus with diabetic neuropathy, unspecified; I12.0 Hypertensive chronic kidney disease with stage 5 chronic kidney disease or end stage renal disease; M86.8X7 Other osteomyelitis, ankle and foot; E11.52 Type 2 diabetes mellitus with diabetic peripheral angiopathy with gangrene; L03.115 Cellulitis of right lower limb; Z94.0 Kidney transplant status; I25.10 Atherosclerotic heart disease of native coronary artery without angina pectoris; Z16.24 Resistance to multiple antibiotics; E11.69 Type 2 diabetes mellitus with other specified complication; Z79.4 Long term (current) use of insulin; Z83.3 Family history of diabetes mellitus; Z87.891 Personal history of nicotine dependence; Z89.421 Acquired absence of other right toe(s); Z89.432 Acquired absence of left foot; Y83.9 Surgical procedure, unspecified as the cause of abnormal reaction of the patient, or of later complication, without mention of misadventure at the time of the procedure; Z28.21 Immunization not carried out because of patient refusal
CPT/HCPCS: 36415; 71045; 73630; 80048; 80053; 82948; 84132; 85025; 85027; 85610; 85651; 87040; 87070; 87076; 88305; 99291; A4218; A6266; J0360; J0696; J0713; J1100; J1650; J1815; J1956; J2001; J2175; J2185; J2250; J2405; J2704; J3010; J3243; J3490; J7030; J7040; J7507; J7512

== ENCOUNTER → 2017-04-25 | Outpatient (CLI) | payer OTHER ==
[~2017-04-25] MED LIST changes: +CADEXOMER IODINE 40 GM GEL TP ONE
[2017-04-25 14:33] VITALS: BP 90/53
== END | disposition home or self-care (01) ==
LOC: WHH 08:45
PROVIDERS: ATTEND Podiatrist Foot & Ankle Surgery
DX: T87.89 Other complications of amputation stump (principal); E11.621 Type 2 diabetes mellitus with foot ulcer; L97.521 Non-pressure chronic ulcer of other part of left foot limited to breakdown of skin; L97.511 Non-pressure chronic ulcer of other part of right foot limited to breakdown of skin; E11.42 Type 2 diabetes mellitus with diabetic polyneuropathy; E11.69 Type 2 diabetes mellitus with other specified complication; M86.8X7 Other osteomyelitis, ankle and foot; I25.10 Atherosclerotic heart disease of native coronary artery without angina pectoris; E11.22 Type 2 diabetes mellitus with diabetic chronic kidney disease; I12.0 Hypertensive chronic kidney disease with stage 5 chronic kidney disease or end stage renal disease; N18.6 End stage renal disease; E11.52 Type 2 diabetes mellitus with diabetic peripheral angiopathy with gangrene; Z94.0 Kidney transplant status; Z79.4 Long term (current) use of insulin; Z87.891 Personal history of nicotine dependence; Z95.1 Presence of aortocoronary bypass graft; Y83.5 Amputation of limb(s) as the cause of abnormal reaction of the patient, or of later complication, without mention of misadventure at the time of the procedure
CPT/HCPCS: 97605; A4450

== ENCOUNTER → 2017-05-04 | Outpatient (CLI) | payer OTHER ==
[~2017-05-04] MED LIST changes: -CADEXOMER IODINE 40 GM GEL TP ONE
[2017-05-04 08:44] VITALS: BP 101/60
== END | disposition home or self-care (01) ==
LOC: WHH 08:00
PROVIDERS: ATTEND Family Medicine
DX: T87.89 Other complications of amputation stump (principal); E11.621 Type 2 diabetes mellitus with foot ulcer; L97.521 Non-pressure chronic ulcer of other part of left foot limited to breakdown of skin; L97.511 Non-pressure chronic ulcer of other part of right foot limited to breakdown of skin; E11.319 Type 2 diabetes mellitus with unspecified diabetic retinopathy without macular edema; E11.69 Type 2 diabetes mellitus with other specified complication; M86.8X7 Other osteomyelitis, ankle and foot; E11.42 Type 2 diabetes mellitus with diabetic polyneuropathy; E11.22 Type 2 diabetes mellitus with diabetic chronic kidney disease; I12.0 Hypertensive chronic kidney disease with stage 5 chronic kidney disease or end stage renal disease; N18.6 End stage renal disease; E11.52 Type 2 diabetes mellitus with diabetic peripheral angiopathy with gangrene; I96 Gangrene, not elsewhere classified; I25.10 Atherosclerotic heart disease of native coronary artery without angina pectoris; Z79.4 Long term (current) use of insulin; Z94.0 Kidney transplant status; Z87.891 Personal history of nicotine dependence; Z95.1 Presence of aortocoronary bypass graft; Y83.5 Amputation of limb(s) as the cause of abnormal reaction of the patient, or of later complication, without mention of misadventure at the time of the procedure
CPT/HCPCS: 97605

== ENCOUNTER → 2017-05-09 | Outpatient (CLI) | payer OTHER ==
[2017-05-09 14:51] VITALS: BP 93/58
== END | disposition home or self-care (01) ==
LOC: WHH 08:15
PROVIDERS: ATTEND Podiatrist Foot & Ankle Surgery
DX: T86.828 Other complications of skin graft (allograft) (autograft) (principal); E11.621 Type 2 diabetes mellitus with foot ulcer; L97.521 Non-pressure chronic ulcer of other part of left foot limited to breakdown of skin; L97.511 Non-pressure chronic ulcer of other part of right foot limited to breakdown of skin; E11.319 Type 2 diabetes mellitus with unspecified diabetic retinopathy without macular edema; E11.69 Type 2 diabetes mellitus with other specified complication; M86.8X7 Other osteomyelitis, ankle and foot; E11.42 Type 2 diabetes mellitus with diabetic polyneuropathy; E11.22 Type 2 diabetes mellitus with diabetic chronic kidney disease; I12.0 Hypertensive chronic kidney disease with stage 5 chronic kidney disease or end stage renal disease; N18.6 End stage renal disease; E11.52 Type 2 diabetes mellitus with diabetic peripheral angiopathy with gangrene; I96 Gangrene, not elsewhere classified; I25.10 Atherosclerotic heart disease of native coronary artery without angina pectoris; Z79.4 Long term (current) use of insulin; Z94.0 Kidney transplant status; Z87.891 Personal history of nicotine dependence; Z95.1 Presence of aortocoronary bypass graft; Y83.2 Surgical operation with anastomosis, bypass or graft as the cause of abnormal reaction of the patient, or of later complication, without mention of misadventure at the time of the procedure
CPT/HCPCS: 97597; A4450; A6209; A6248

== ENCOUNTER → 2017-05-10 | Outpatient (CLI) | payer OTHER | END | disposition home or self-care (01) | LOC: RAH 14:55 | PROVIDERS: ATTEND Family Medicine | DX: E11.621 Type 2 diabetes mellitus with foot ulcer (principal); L97.519 Non-pressure chronic ulcer of other part of right foot with unspecified severity; I13.2 Hypertensive heart and chronic kidney disease with heart failure and with stage 5 chronic kidney disease, or end stage renal disease; E11.22 Type 2 diabetes mellitus with diabetic chronic kidney disease; N18.6 End stage renal disease; I50.9 Heart failure, unspecified; E78.00 Pure hypercholesterolemia, unspecified; E78.5 Hyperlipidemia, unspecified; Z89.431 Acquired absence of right foot | CPT/HCPCS: 73718 ==

== ENCOUNTER → 2017-05-11 | Outpatient (CLI) | payer OTHER ==
[~2017-05-11] MED LIST changes: +HONEY 1 APPL/ML TUBE TP ONE
[2017-05-11 16:40] VITALS: BP 97/58
== END | disposition home or self-care (01) ==
LOC: WHH 14:30
PROVIDERS: ATTEND Family Medicine
DX: T87.89 Other complications of amputation stump (principal); E11.621 Type 2 diabetes mellitus with foot ulcer; L97.521 Non-pressure chronic ulcer of other part of left foot limited to breakdown of skin; L97.511 Non-pressure chronic ulcer of other part of right foot limited to breakdown of skin; E11.622 Type 2 diabetes mellitus with other skin ulcer; L97.311 Non-pressure chronic ulcer of right ankle limited to breakdown of skin; I25.10 Atherosclerotic heart disease of native coronary artery without angina pectoris; E11.319 Type 2 diabetes mellitus with unspecified diabetic retinopathy without macular edema; E11.42 Type 2 diabetes mellitus with diabetic polyneuropathy; E11.22 Type 2 diabetes mellitus with diabetic chronic kidney disease; I13.2 Hypertensive heart and chronic kidney disease with heart failure and with stage 5 chronic kidney disease, or end stage renal disease; N18.6 End stage renal disease; I50.9 Heart failure, unspecified; E78.5 Hyperlipidemia, unspecified; E11.52 Type 2 diabetes mellitus with diabetic peripheral angiopathy with gangrene; I96 Gangrene, not elsewhere classified; E11.69 Type 2 diabetes mellitus with other specified complication; M86.8X7 Other osteomyelitis, ankle and foot; Z87.891 Personal history of nicotine dependence; Z95.1 Presence of aortocoronary bypass graft; Z79.4 Long term (current) use of insulin; Y83.5 Amputation of limb(s) as the cause of abnormal reaction of the patient, or of later complication, without mention of misadventure at the time of the procedure
CPT/HCPCS: 11042; 11045; A6209

== ENCOUNTER 2017-05-13 11:24 | Inpatient (IN) | payer OTHER ==
[~2017-05-13] VITALS: Ht 172.7 cm; Wt 69.8 kg
[~2017-05-13 11:24] MED LIST changes: -HONEY 1 APPL/ML TUBE TP ONE
[2017-05-13] MEDS ORDERED: CEFTRIAXONE SODIUM 1 GM ONE (12:01)
[2017-05-13] MEDS ORDERED: SODIUM CHLORIDE 0.9% 1000ML 1,000 ML IV ONE ×2 (12:01→15:25)
[2017-05-13 12:30] LABS: BASOPHILS % (AUTO) 0.6 % (0.0-5.0); EOSINOPHILS % (AUTO) 0.1 % (0.0-8.0); HEMATOCRIT 30.6 % (42-54); LYMPHOCYTES % (AUTO) 11.8 % (21.0-51.0); MEAN CORPUSCULAR HEMOGLOBIN 30.2 pg (27.0-33.0); MEAN CORPUSCULAR HGB CONC 34.3 g/dL (32.0-36.0); MEAN CORPUSCULAR VOLUME 88.1 fL (79-99); NEUTROPHILS % (AUTO) 80.5 % (40.0-77.0); PLATELET COUNT (AUTO) 305 K/uL (130-400); RED BLOOD CELL COUNT(AUTO) 3.47 MIL/uL (4.50-6.20); RED CELL DISTRIBUTION WIDTH 14.5 % (11.0-15.5); WHITE BLOOD COUNT (AUTO) 12.3 K/uL (4.8-10.8)
[2017-05-13 12:39] LABS: INR 1.18 (0.85-1.15); PROTHROMBIN TIME 12.1 SEC (9.6-11.6)
[2017-05-13 12:49] LABS: ALANINE AMINOTRANSFERASE 113 U/L (12-78); ALBUMIN 2.1 g/dL (3.5-5.0); ASPARTATE AMINOTRANSFERASE 76 U/L (10-37); BILIRUBIN,TOTAL 0.8 mg/dL (0.2-1.0); CARBON DIOXIDE 27 mmol/L (21-32); CREATINE KINASE MB 0.7 ng/mL (0.5-3.6); CREATINE KINASE, TOTAL 63 U/L (21-232); CREATININE 1.4 mg/dL (0.5-1.5); GLOMERULAR FILTR. RATE CALC 56 mL/min (>60); GLUCOSE,RANDOM 121 mg/dL (70-105); LIPASE 128 U/L (114-286); MYOGLOBIN 102 ng/mL (10-92); POTASSIUM 5.4 mmol/L (3.5-5.1); SODIUM SERUM 118 mmol/L (136-145); TOTAL PROTEIN, SERUM 7.3 g/dL (6.0-8.3); TROPONIN I < 0.04 ng/mL (0.00-0.06); UREA NITROGEN, BLOOD 38 mg/dL (7-18)
[2017-05-13 12:53] LABS: CHLORIDE 86 mmol/L (101-111)
[2017-05-13 13:05] LABS: BILIRUBIN,DIRECT 0.2 mg/dL (0.0-0.3)
[2017-05-13] MEDS ORDERED: MEROPENEM 500 MG VIAL ONE (15:25)
[2017-05-13 15:37] LABS: BILIRUBIN,URINE Negative (NEGATIVE); COLOR,URINE Yellow (YELLOW); GLUCOSE, URINE (UA) Negative (NEGATIVE); KETONES,URINE Negative (NEGATIVE); LEUKOCYTE ESTERASE ,URINE Negative (NEGATIVE); NITRATE,URINE Negative (NEGATIVE); OCCULT BLOOD,URINE Small (NEGATIVE); PROTEIN,URINE Negative (NEGATIVE); UROBILINOGEN,URINE 0.2 mg/dL (0.2-1.0)
[2017-05-13 15:43] LABS: APPEARANCE,URINE CLEAR (CLEAR)
[2017-05-13 15:50] LABS: BACTERIA,URINE Rare /HPF (None Seen); RBC,URINE 0-1 /HPF (0-1); SQUAMOUS EPITHELIAL CELL,UR 0-2 /HPF (0-2); WBC,URINE None Seen /HPF (0-1)
[2017-05-13] MEDS ORDERED: MORPHINE SULFATE 4 MG/1ML SYG ONE (16:09)
[2017-05-13] MEDS ORDERED: ONDANSETRON HCL MDV 20ML 2 MG/ML VIAL IVP PRN (17:30)
[2017-05-13] MEDS ORDERED: VANCOMYCIN PROTOCOL PER PHARMACY IV SCH (17:30)
[2017-05-13] MEDS ORDERED: LACTULOSE 20 GM/30 ML UDCUP PO PRN (17:30)
[2017-05-13] MEDS ORDERED: MORPHINE SULFATE 4 MG/1ML SYG IVP PRN (17:30)
[2017-05-13] MEDS: VANCOMYCIN 1GM+NS 250ML 250 ML IV SCH (19:00)
[2017-05-13] MEDS: INSULIN R PO SS1 SQ SCH (21:00)
[2017-05-14] VITALS (7 sets, daily range): BP systolic 138–178; BP diastolic 69–93
[2017-05-14] MEDS: MEROPENEM 500 MG VIAL IVP SCH ×3 (04:37→14:59)
[2017-05-14] MEDS: SODIUM CHLORIDE 0.9% 1000ML 1,000 ML IV SCH ×2 (04:37→08:14)
[2017-05-14 06:40] LABS: HEMATOCRIT 25.6 % (42-54); MEAN CORPUSCULAR HEMOGLOBIN 31.9 pg (27.0-33.0); MEAN CORPUSCULAR HGB CONC 36.4 g/dL (32.0-36.0); MEAN CORPUSCULAR VOLUME 87.5 fL (79-99); PLATELET COUNT (AUTO) 236 K/uL (130-400); RED BLOOD CELL COUNT(AUTO) 2.92 MIL/uL (4.50-6.20); RED CELL DISTRIBUTION WIDTH 14.7 % (11.0-15.5); WHITE BLOOD COUNT (AUTO) 10.9 K/uL (4.8-10.8)
[2017-05-14 06:47] LABS: CREATININE 1.2 mg/dL (0.5-1.5); POTASSIUM 5.3 mmol/L (3.5-5.1)
[2017-05-14] MEDS: INSULIN R PO SS1 SQ SCH ×4 (07:30→21:00)
[2017-05-14] MEDS: VANCOMYCIN 1GM+NS 250ML 250 ML IV SCH (08:12)
[2017-05-14] MEDS: FAMOTIDINE 20MG TAB 20 MG TAB PO SCH ×2 (08:12→21:00)
[2017-05-14] MEDS: INSULIN LISPRO 100 UNIT/ML 3ML SQ SCH ×2 (11:36→16:33)
[2017-05-14] MEDS: SENNOSIDES 8.6 MG TABLET PO SCH (21:00)
[2017-05-14] MEDS: GABAPENTIN 300 MG CAPSULE PO SCH (21:00)
[2017-05-14] MEDS: TIMOLOL MALEATE 0.5% 5 ML BOTTLE OU SCH (21:00)
[2017-05-14] MEDS: TACROLIMUS 1 MG CAPSULE PO SCH (21:00)
[2017-05-14] MEDS: LATANOPROST 2.5 ML DROPS OU SCH (21:00)
[2017-05-14] MEDS: BRIMONIDINE TARTRATE 0.2% 5 ML BOTTLE OU SCH (21:00)
[2017-05-15] MEDS: MEROPENEM 500 MG VIAL IVP SCH ×4 (00:24→22:58)
[2017-05-15] MEDS: VANCOMYCIN 1GM+NS 250ML 250 ML IV SCH ×3 (00:24→22:58)
[2017-05-15] MEDS: CLONIDINE HCL 0.1 MG TABLET PO PRN (00:31)
[2017-05-15 03:52] VITALS: BP 159/74
[2017-05-15 07:55] VITALS: BP 175/89
[2017-05-15] MEDS: INSULIN R PO SS1 SQ SCH ×4 (08:23→21:00)
[2017-05-15] MEDS: INSULIN LISPRO 100 UNIT/ML 3ML SQ SCH ×3 (08:24→17:00)
[2017-05-15 08:38] LABS: MEAN CORPUSCULAR HEMOGLOBIN 30.5 pg (27.0-33.0); MEAN CORPUSCULAR HGB CONC 34.7 g/dL (32.0-36.0); PLATELET COUNT (AUTO) 239 K/uL (130-400); RED BLOOD CELL COUNT(AUTO) 2.84 MIL/uL (4.50-6.20); RED CELL DISTRIBUTION WIDTH 14.7 % (11.0-15.5); WHITE BLOOD COUNT (AUTO) 10.7 K/uL (4.8-10.8)
[2017-05-15 08:54] LABS: CREATININE 1.1 mg/dL (0.5-1.5); POTASSIUM 5.5 mmol/L (3.5-5.1)
[2017-05-15] MEDS: TIMOLOL MALEATE 0.5% 5 ML BOTTLE OU SCH ×2 (09:00→21:00)
[2017-05-15] MEDS: BRIMONIDINE TARTRATE 0.2% 5 ML BOTTLE OU SCH ×2 (09:00→21:00)
[2017-05-15] MEDS: ERGOCALCIFEROL (VITAMIN D2) 50,000 UNIT CAPSULE PO SCH (09:50)
[2017-05-15] MEDS: ASPIRIN 81 MG EC TAB PO SCH (09:50)
[2017-05-15] MEDS: GABAPENTIN 100 MG CAPSULE PO SCH (09:50)
[2017-05-15] MEDS: PREDNISONE 5 MG TABLET PO SCH (09:50)
[2017-05-15] MEDS: FAMOTIDINE 20MG TAB 20 MG TAB PO SCH ×3 (09:50→23:07)
[2017-05-15] MEDS: TACROLIMUS 1 MG CAPSULE PO SCH ×2 (09:50→21:00)
[2017-05-15] MEDS: SENNOSIDES 8.6 MG TABLET PO SCH ×2 (09:51→21:00)
[2017-05-15] MEDS: INSULIN GLARGINE 100 UNITS/ML 10 ML VIAL SQ SCH (09:54)
[2017-05-15 11:37] VITALS: BP 150/67
[2017-05-15 16:43] VITALS: BP 117/58
[2017-05-15 20:00] VITALS: BP 151/80
[2017-05-15] MEDS: GABAPENTIN 300 MG CAPSULE PO SCH (21:00)
[2017-05-15] MEDS: LATANOPROST 2.5 ML DROPS OU SCH (21:00)
[2017-05-15 23:45] VITALS: BP 146/71
[2017-05-16 04:00] VITALS: BP 135/81
[2017-05-16 04:53] LABS: HEMATOCRIT 23.7 % (42-54); MEAN CORPUSCULAR HEMOGLOBIN 32.1 pg (27.0-33.0); MEAN CORPUSCULAR HGB CONC 36.4 g/dL (32.0-36.0); MEAN CORPUSCULAR VOLUME 88.3 fL (79-99); PLATELET COUNT (AUTO) 236 K/uL (130-400); RED BLOOD CELL COUNT(AUTO) 2.68 MIL/uL (4.50-6.20); RED CELL DISTRIBUTION WIDTH 14.7 % (11.0-15.5); WHITE BLOOD COUNT (AUTO) 10.7 K/uL (4.8-10.8)
[2017-05-16 05:06] LABS: CREATININE 1.3 mg/dL (0.5-1.5); POTASSIUM 5.4 mmol/L (3.5-5.1)
[2017-05-16] MEDS: INSULIN R PO SS1 SQ SCH ×3 (06:55→16:30)
[2017-05-16] MEDS: INSULIN LISPRO 100 UNIT/ML 3ML SQ SCH ×3 (07:30→18:37)
[2017-05-16 07:51] VITALS: BP 134/74
[2017-05-16] MEDS: MEROPENEM 500 MG VIAL IVP SCH ×2 (08:04→18:40)
[2017-05-16] MEDS: SENNOSIDES 8.6 MG TABLET PO SCH ×2 (09:00→21:00)
[2017-05-16] MEDS: BRIMONIDINE TARTRATE 0.2% 5 ML BOTTLE OU SCH ×2 (09:00→21:00)
[2017-05-16] MEDS: ERGOCALCIFEROL (VITAMIN D2) 50,000 UNIT CAPSULE PO SCH (09:00)
[2017-05-16] MEDS: ASPIRIN 81 MG EC TAB PO SCH (09:00)
[2017-05-16] MEDS: PREDNISONE 5 MG TABLET PO SCH (09:00)
[2017-05-16] MEDS: TIMOLOL MALEATE 0.5% 5 ML BOTTLE OU SCH ×2 (09:00→21:00)
[2017-05-16] MEDS: INSULIN GLARGINE 100 UNITS/ML 10 ML VIAL SQ SCH (09:00)
[2017-05-16] MEDS: TACROLIMUS 1 MG CAPSULE PO SCH ×2 (09:00→21:00)
[2017-05-16] MEDS: GABAPENTIN 100 MG CAPSULE PO SCH (09:00)
[2017-05-16] MEDS: VANCOMYCIN 1GM+NS 250ML 250 ML IV SCH (09:58)
[2017-05-16 11:08] VITALS: BP 127/68
[2017-05-16 16:51] VITALS: BP 163/90
[2017-05-16 19:00] VITALS: BP 164/82
[2017-05-16] MEDS: FAMOTIDINE 20MG TAB 20 MG TAB PO SCH (21:00)
[2017-05-16] MEDS: LATANOPROST 2.5 ML DROPS OU SCH (21:00)
[2017-05-16] MEDS: GABAPENTIN 300 MG CAPSULE PO SCH (21:00)
[2017-05-16 23:00] VITALS: BP 171/76
[2017-05-17] VITALS (7 sets, daily range): BP systolic 134–178; BP diastolic 72–92
[2017-05-17] MEDS: MEROPENEM 500 MG VIAL IVP SCH ×3 (00:01→15:50)
[2017-05-17] MEDS: VANCOMYCIN 1GM+NS 250ML 250 ML IV SCH ×2 (00:01→09:10)
[2017-05-17] MEDS: INSULIN R PO SS1 SQ SCH ×5 (00:03→21:00)
[2017-05-17] MEDS: ACETAMINOPHEN 325 MG TAB PO PRN ×2 (05:41→18:53)
[2017-05-17 06:53] LABS: MEAN CORPUSCULAR HGB CONC 36.2 g/dL (32.0-36.0); MEAN CORPUSCULAR VOLUME 88.5 fL (79-99); PLATELET COUNT (AUTO) 251 K/uL (130-400); RED BLOOD CELL COUNT(AUTO) 2.83 MIL/uL (4.50-6.20); RED CELL DISTRIBUTION WIDTH 14.3 % (11.0-15.5); WHITE BLOOD COUNT (AUTO) 10.6 K/uL (4.8-10.8)
[2017-05-17 07:07] LABS: CREATININE 1.1 mg/dL (0.5-1.5); POTASSIUM 5.3 mmol/L (3.5-5.1)
[2017-05-17] MEDS: INSULIN LISPRO 100 UNIT/ML 3ML SQ SCH ×3 (07:30→17:07)
[2017-05-17] MEDS: INSULIN GLARGINE 100 UNITS/ML 10 ML VIAL SQ SCH (09:00)
[2017-05-17] MEDS: ASPIRIN 81 MG EC TAB PO SCH (09:00)
[2017-05-17] MEDS: ERGOCALCIFEROL (VITAMIN D2) 50,000 UNIT CAPSULE PO SCH (09:00)
[2017-05-17] MEDS: PREDNISONE 5 MG TABLET PO SCH (09:00)
[2017-05-17] MEDS: TIMOLOL MALEATE 0.5% 5 ML BOTTLE OU SCH ×2 (09:00→21:00)
[2017-05-17] MEDS: GABAPENTIN 100 MG CAPSULE PO SCH (09:00)
[2017-05-17] MEDS: BRIMONIDINE TARTRATE 0.2% 5 ML BOTTLE OU SCH ×2 (09:00→21:00)
[2017-05-17] MEDS: FAMOTIDINE 20MG TAB 20 MG TAB PO SCH (09:00)
[2017-05-17] MEDS: TACROLIMUS 1 MG CAPSULE PO SCH ×2 (09:00→21:00)
[2017-05-17] MEDS: SENNOSIDES 8.6 MG TABLET PO SCH ×2 (09:00→21:00)
[2017-05-17] MEDS: LATANOPROST 2.5 ML DROPS OU SCH (21:00)
[2017-05-17] MEDS: GABAPENTIN 300 MG CAPSULE PO SCH (21:00)
[2017-05-18] MEDS: MEROPENEM 500 MG VIAL IVP SCH ×3 (00:11→15:26)
[2017-05-18] MEDS: FAMOTIDINE 20MG TAB 20 MG TAB PO SCH ×3 (00:11→21:00)
[2017-05-18] MEDS: VANCOMYCIN 1GM+NS 250ML 250 ML IV SCH ×3 (00:11→21:00)
[2017-05-18] MEDS: CLONIDINE HCL 0.1 MG TABLET PO PRN (00:25)
[2017-05-18 03:00] VITALS: BP 154/90
[2017-05-18] MEDS: INSULIN LISPRO 100 UNIT/ML 3ML SQ SCH ×4 (06:34→17:57)
[2017-05-18] MEDS: INSULIN R PO SS1 SQ SCH ×4 (06:34→21:00)
[2017-05-18 06:47] LABS: POTASSIUM 5.7 mmol/L (3.5-5.1)
[2017-05-18 08:16] VITALS: BP 148/72
[2017-05-18] MEDS: BRIMONIDINE TARTRATE 0.2% 5 ML BOTTLE OU SCH ×2 (09:00→21:00)
[2017-05-18] MEDS: PREDNISONE 5 MG TABLET PO SCH (09:00)
[2017-05-18] MEDS: TIMOLOL MALEATE 0.5% 5 ML BOTTLE OU SCH ×2 (09:00→21:00)
[2017-05-18] MEDS: GABAPENTIN 100 MG CAPSULE PO SCH (09:00)
[2017-05-18] MEDS: ERGOCALCIFEROL (VITAMIN D2) 50,000 UNIT CAPSULE PO SCH (09:00)
[2017-05-18] MEDS: SENNOSIDES 8.6 MG TABLET PO SCH ×2 (09:00→21:00)
[2017-05-18] MEDS: TACROLIMUS 1 MG CAPSULE PO SCH ×2 (09:00→21:00)
[2017-05-18] MEDS: ASPIRIN 81 MG EC TAB PO SCH (09:00)
[2017-05-18] MEDS: INSULIN GLARGINE 100 UNITS/ML 10 ML VIAL SQ SCH (09:42)
[2017-05-18 12:27] VITALS: BP 157/69
[2017-05-18] MEDS: FUROSEMIDE 10 MG/ML 4ML VIAL IV SCH (17:39)
[2017-05-18 17:55] VITALS: BP 151/66
[2017-05-18 20:00] VITALS: BP 129/72
[2017-05-18] MEDS: GABAPENTIN 300 MG CAPSULE PO SCH (21:00)
[2017-05-18] MEDS: LATANOPROST 2.5 ML DROPS OU SCH (21:00)
[2017-05-18 23:51] VITALS: BP 148/72
[2017-05-19 04:00] VITALS: BP 140/79
[2017-05-19] MEDS: MEROPENEM 500 MG VIAL IVP SCH ×4 (04:41→22:57)
[2017-05-19] MEDS: INSULIN R PO SS1 SQ SCH ×4 (06:21→21:00)
[2017-05-19 06:58] LABS: BASOPHILS % (AUTO) 0.4 % (0.0-5.0); EOSINOPHILS % (AUTO) 0.8 % (0.0-8.0); HEMATOCRIT 24.5 % (42-54); LYMPHOCYTES % (AUTO) 26.4 % (21.0-51.0); MEAN CORPUSCULAR HEMOGLOBIN 31.3 pg (27.0-33.0); MEAN CORPUSCULAR HGB CONC 35.6 g/dL (32.0-36.0); MONOCYTES % (AUTO) 8.2 % (3.0-13.0); NEUTROPHILS % (AUTO) 64.2 % (40.0-77.0); PLATELET COUNT (AUTO) 255 K/uL (130-400); RED BLOOD CELL COUNT(AUTO) 2.78 MIL/uL (4.50-6.20); RED CELL DISTRIBUTION WIDTH 14.7 % (11.0-15.5)
[2017-05-19 07:20] LABS: ALBUMIN 1.7 g/dL (3.5-5.0); CREATININE 1.2 mg/dL (0.5-1.5); PHOSPHORUS 4.2 mg/dL (2.5-4.9); POTASSIUM 5.5 mmol/L (3.5-5.1)
[2017-05-19] MEDS: INSULIN LISPRO 100 UNIT/ML 3ML SQ SCH ×3 (07:30→17:20)
[2017-05-19 08:00] VITALS: BP 178/90
[2017-05-19] MEDS: FUROSEMIDE 10 MG/ML 4ML VIAL IV SCH (09:31)
[2017-05-19] MEDS: BRIMONIDINE TARTRATE 0.2% 5 ML BOTTLE OU SCH ×2 (09:32→21:00)
[2017-05-19] MEDS: TACROLIMUS 1 MG CAPSULE PO SCH ×2 (09:32→21:00)
[2017-05-19] MEDS: ERGOCALCIFEROL (VITAMIN D2) 50,000 UNIT CAPSULE PO SCH (09:32)
[2017-05-19] MEDS: TIMOLOL MALEATE 0.5% 5 ML BOTTLE OU SCH ×2 (09:32→21:00)
[2017-05-19] MEDS: FAMOTIDINE 20MG TAB 20 MG TAB PO SCH ×2 (09:32→21:27)
[2017-05-19] MEDS: GABAPENTIN 100 MG CAPSULE PO SCH (09:32)
[2017-05-19] MEDS: SENNOSIDES 8.6 MG TABLET PO SCH ×2 (09:32→21:00)
[2017-05-19] MEDS: PREDNISONE 5 MG TABLET PO SCH (09:32)
[2017-05-19] MEDS: ASPIRIN 81 MG EC TAB PO SCH (09:32)
[2017-05-19] MEDS: INSULIN GLARGINE 100 UNITS/ML 10 ML VIAL SQ SCH (10:31)
[2017-05-19 12:00] VITALS: BP 173/78
[2017-05-19 16:00] VITALS: BP 159/81
[2017-05-19] MEDS: VANCOMYCIN 1GM+NS 250ML 250 ML IV SCH (17:14)
[2017-05-19 20:00] VITALS: BP 194/88
[2017-05-19] MEDS: GABAPENTIN 300 MG CAPSULE PO SCH (21:00)
[2017-05-19] MEDS: LATANOPROST 2.5 ML DROPS OU SCH (21:00)
[2017-05-19 23:55] VITALS: BP 179/78
[2017-05-20 03:59] VITALS: BP 145/81
[2017-05-20] MEDS: MEROPENEM 500 MG VIAL IVP SCH ×3 (06:43→23:11)
[2017-05-20] MEDS: VANCOMYCIN 1GM+NS 250ML 250 ML IV SCH ×2 (06:43→18:57)
[2017-05-20] MEDS: INSULIN R PO SS1 SQ SCH ×4 (06:44→21:00)
[2017-05-20 07:09] LABS: HEMATOCRIT 25.7 % (42-54); MEAN CORPUSCULAR HEMOGLOBIN 30.7 pg (27.0-33.0); MEAN CORPUSCULAR HGB CONC 34.8 g/dL (32.0-36.0); PLATELET COUNT (AUTO) 248 K/uL (130-400); RED BLOOD CELL COUNT(AUTO) 2.91 MIL/uL (4.50-6.20); RED CELL DISTRIBUTION WIDTH 14.8 % (11.0-15.5); WHITE BLOOD COUNT (AUTO) 7.8 K/uL (4.8-10.8)
[2017-05-20 07:21] LABS: POTASSIUM 5.4 mmol/L (3.5-5.1)
[2017-05-20] MEDS: TACROLIMUS 1 MG CAPSULE PO SCH ×2 (08:13→21:00)
[2017-05-20] MEDS: PREDNISONE 5 MG TABLET PO SCH (08:14)
[2017-05-20] MEDS: ASPIRIN 81 MG EC TAB PO SCH (08:14)
[2017-05-20] MEDS: GABAPENTIN 100 MG CAPSULE PO SCH (08:15)
[2017-05-20] MEDS: ERGOCALCIFEROL (VITAMIN D2) 50,000 UNIT CAPSULE PO SCH (08:15)
[2017-05-20] MEDS: FAMOTIDINE 20MG TAB 20 MG TAB PO SCH ×2 (08:15→21:00)
[2017-05-20] MEDS: SENNOSIDES 8.6 MG TABLET PO SCH ×2 (08:16→21:00)
[2017-05-20] MEDS: FUROSEMIDE 10 MG/ML 4ML VIAL IV SCH (08:40)
[2017-05-20] MEDS: INSULIN GLARGINE 100 UNITS/ML 10 ML VIAL SQ SCH (08:55)
[2017-05-20] MEDS: INSULIN LISPRO 100 UNIT/ML 3ML SQ SCH ×3 (08:55→16:37)
[2017-05-20] MEDS: TIMOLOL MALEATE 0.5% 5 ML BOTTLE OU SCH ×2 (08:59→21:00)
[2017-05-20] MEDS: BRIMONIDINE TARTRATE 0.2% 5 ML BOTTLE OU SCH ×2 (08:59→21:00)
[2017-05-20] MEDS: FUROSEMIDE 40 MG TABLET PO SCH (10:00)
[2017-05-20 12:35] VITALS: BP 171/87
[2017-05-20 16:00] VITALS: BP 170/82
[2017-05-20 20:00] VITALS: BP 183/86
[2017-05-20] MEDS: GABAPENTIN 300 MG CAPSULE PO SCH (21:00)
[2017-05-20] MEDS: LATANOPROST 2.5 ML DROPS OU SCH (21:00)
[2017-05-20] MEDS: CLONIDINE HCL 0.1 MG TABLET PO PRN (23:12)
[2017-05-21] VITALS (25 sets, daily range): BP systolic 112–173; BP diastolic 42–97
[2017-05-21 05:34] LABS: HEMATOCRIT 21.6 % (42-54); MEAN CORPUSCULAR HEMOGLOBIN 30.8 pg (27.0-33.0); MEAN CORPUSCULAR HGB CONC 35.4 g/dL (32.0-36.0); MEAN CORPUSCULAR VOLUME 87.2 fL (79-99); NUCLEATED RED BLOOD CELLS 0.1 % (0.0-0.19); PLATELET COUNT (AUTO) 217 K/uL (130-400); RED BLOOD CELL COUNT(AUTO) 2.47 MIL/uL (4.50-6.20); RED CELL DISTRIBUTION WIDTH 14.5 % (11.0-15.5); WHITE BLOOD COUNT (AUTO) 7.4 K/uL (4.8-10.8)
[2017-05-21 05:46] LABS: CREATININE 1.1 mg/dL (0.5-1.5); POTASSIUM 5.3 mmol/L (3.5-5.1)
[2017-05-21] MEDS: VANCOMYCIN 1GM+NS 250ML 250 ML IV SCH (06:00)
[2017-05-21] MEDS: INSULIN R PO SS1 SQ SCH ×4 (06:21→21:53)
[2017-05-21] MEDS: MEROPENEM 500 MG VIAL IVP SCH ×2 (06:34→18:02)
[2017-05-21] MEDS: INSULIN LISPRO 100 UNIT/ML 3ML SQ SCH ×3 (06:41→17:51)
[2017-05-21] MEDS ORDERED: SODIUM CHLORIDE 0.9% 1000ML 1,000 ML IV ONE (07:05)
[2017-05-21] MEDS ORDERED: DEXAMETHASONE SOD PHOSPHATE 10MG/ML 1ML VIAL ONE ×2 (07:35→08:41)
[2017-05-21] MEDS ORDERED: LIDOCAINE PF 2% 5ML ABBOJECT ONE (07:35)
[2017-05-21] MEDS ORDERED: GLYCOPYRROLATE 0.2 MG/ML 5 ML VIAL ONE (07:35)
[2017-05-21] MEDS ORDERED: MIDAZOLAM HCL 1 MG/ML 2ML VIAL ONE (07:36)
[2017-05-21] MEDS ORDERED: FENTANYL CITRATE PF 50 MCG/1 ML 2ML VIAL ONE (07:36)
[2017-05-21] MEDS ORDERED: PROPOFOL 10 MG/ML 20ML VIAL IV ONE (07:36)
[2017-05-21] MEDS ORDERED: NEOMY SULF/POLYMYXIN B SULFATE 1 ML AMPUL IR ONE (08:23)
[2017-05-21] MEDS ORDERED: ROCURONIUM BROMIDE 10MG/1ML 5ML VL ONE (08:41)
[2017-05-21] MEDS ORDERED: PHENYLEPHRINE HCL 10 MG/ML 1ML VIAL IV ONE (08:42)
[2017-05-21] MEDS ORDERED: LIDOCAINE HCL 2% JELLY 5 ML ONE (08:42)
[2017-05-21] MEDS ORDERED: LIDOCAINE HCL 4% LTA SOL 4 ML VIAL ONE (08:42)
[2017-05-21] MEDS ORDERED: ONDANSETRON HCL MDV 20ML 2 MG/ML VIAL ONE (08:42)
[2017-05-21] MEDS ORDERED: ROPIVACAINE 0.5% 5MG/ML 30ML IJ ONE ×3 (08:43→09:49)
[2017-05-21] MEDS ORDERED: EPHEDRINE SULFATE 50 MG/ML AMPULE ONE (08:46)
[2017-05-21] MEDS ORDERED: NEOSTIGMINE METHYLSULFATE 1MG/ML IV ONE (08:55)
[2017-05-21] MEDS: ASPIRIN 81 MG EC TAB PO SCH (09:00)
[2017-05-21] MEDS: TACROLIMUS 1 MG CAPSULE PO SCH ×2 (09:00→21:00)
[2017-05-21] MEDS: SENNOSIDES 8.6 MG TABLET PO SCH ×2 (09:00→21:00)
[2017-05-21] MEDS: ERGOCALCIFEROL (VITAMIN D2) 50,000 UNIT CAPSULE PO SCH (09:00)
[2017-05-21] MEDS: TIMOLOL MALEATE 0.5% 5 ML BOTTLE OU SCH ×2 (09:00→21:00)
[2017-05-21] MEDS: PREDNISONE 5 MG TABLET PO SCH (09:00)
[2017-05-21] MEDS: BRIMONIDINE TARTRATE 0.2% 5 ML BOTTLE OU SCH ×2 (09:00→21:00)
[2017-05-21] MEDS: GABAPENTIN 100 MG CAPSULE PO SCH (09:00)
[2017-05-21] MEDS ORDERED: MICROFIBRILLAR COLLAGEN 1 GM PACKAGE TP ONE (09:04)
[2017-05-21 10:37] LABS: HEMATOCRIT 20.7 % (42-54)
[2017-05-21] MEDS ORDERED: MORPHINE SULFATE 2 MG/ML 1ML SYG ONE (11:55)
[2017-05-21] MEDS: FAMOTIDINE 20MG TAB 20 MG TAB PO SCH ×2 (12:00→21:00)
[2017-05-21] MEDS: FUROSEMIDE 40 MG TABLET PO SCH (12:01)
[2017-05-21] MEDS: INSULIN GLARGINE 100 UNITS/ML 10 ML VIAL SQ SCH (12:04)
[2017-05-21] MEDS: LATANOPROST 2.5 ML DROPS OU SCH (21:00)
[2017-05-21] MEDS: GABAPENTIN 300 MG CAPSULE PO SCH (21:00)
[2017-05-21] MEDS: VANCOMYCIN 500MG+NS 100ML 100 ML IV SCH (21:58)
[2017-05-22] VITALS (7 sets, daily range): BP systolic 147–176; BP diastolic 74–96
[2017-05-22] MEDS ORDERED: HYDRALAZINE HCL 20 MG/ML VIAL IV SCH
[2017-05-22] MEDS: MEROPENEM 500 MG VIAL IVP SCH ×4 (00:18→23:27)
[2017-05-22 04:35] LABS: HEMATOCRIT 22.6 % (42-54); MEAN CORPUSCULAR HEMOGLOBIN 30.6 pg (27.0-33.0); MEAN CORPUSCULAR HGB CONC 34.8 g/dL (32.0-36.0); MEAN CORPUSCULAR VOLUME 87.9 fL (79-99); PLATELET COUNT (AUTO) 212 K/uL (130-400); RED BLOOD CELL COUNT(AUTO) 2.58 MIL/uL (4.50-6.20); RED CELL DISTRIBUTION WIDTH 14.9 % (11.0-15.5)
[2017-05-22 04:46] LABS: CREATININE 1.1 mg/dL (0.5-1.5)
[2017-05-22] MEDS: MORPHINE SULFATE 4 MG/1ML SYG IVP PRN ×4 (07:00→21:19)
[2017-05-22] MEDS: INSULIN LISPRO 100 UNIT/ML 3ML SQ SCH ×3 (07:06→17:10)
[2017-05-22] MEDS: INSULIN R PO SS1 SQ SCH ×4 (07:30→20:42)
[2017-05-22] MEDS: ASPIRIN 81 MG EC TAB PO SCH (09:00)
[2017-05-22] MEDS: TIMOLOL MALEATE 0.5% 5 ML BOTTLE OU SCH ×2 (09:00→20:41)
[2017-05-22] MEDS: BRIMONIDINE TARTRATE 0.2% 5 ML BOTTLE OU SCH ×2 (09:00→20:41)
[2017-05-22] MEDS: ERGOCALCIFEROL (VITAMIN D2) 50,000 UNIT CAPSULE PO SCH (09:00)
[2017-05-22] MEDS: PREDNISONE 5 MG TABLET PO SCH (09:00)
[2017-05-22] MEDS: SENNOSIDES 8.6 MG TABLET PO SCH ×2 (09:00→20:42)
[2017-05-22] MEDS: TACROLIMUS 1 MG CAPSULE PO SCH ×2 (09:00→20:42)
[2017-05-22] MEDS: GABAPENTIN 100 MG CAPSULE PO SCH (09:00)
[2017-05-22] MEDS: VANCOMYCIN 500MG+NS 100ML 100 ML IV SCH ×2 (12:25→20:54)
[2017-05-22] MEDS: FUROSEMIDE 40 MG TABLET PO SCH (12:26)
[2017-05-22] MEDS: FAMOTIDINE 20MG TAB 20 MG TAB PO SCH ×2 (12:26→20:39)
[2017-05-22] MEDS: INSULIN GLARGINE 100 UNITS/ML 10 ML VIAL SQ SCH (17:02)
[2017-05-22] MEDS: LATANOPROST 2.5 ML DROPS OU SCH (20:40)
[2017-05-22] MEDS: GABAPENTIN 300 MG CAPSULE PO SCH (20:42)
[2017-05-23 00:20] VITALS: BP 169/84
[2017-05-23] MEDS: MORPHINE SULFATE 4 MG/1ML SYG IVP PRN ×2 (02:02→08:28)
[2017-05-23 04:20] VITALS: BP 173/92
[2017-05-23] MEDS: MEROPENEM 500 MG VIAL IVP SCH ×2 (04:41→14:43)
[2017-05-23 04:44] LABS: HEMATOCRIT 22.1 % (42-54); MEAN CORPUSCULAR HEMOGLOBIN 30.5 pg (27.0-33.0); MEAN CORPUSCULAR HGB CONC 34.4 g/dL (32.0-36.0); MEAN CORPUSCULAR VOLUME 88.9 fL (79-99); PLATELET COUNT (AUTO) 188 K/uL (130-400); RED BLOOD CELL COUNT(AUTO) 2.48 MIL/uL (4.50-6.20); WHITE BLOOD COUNT (AUTO) 9.6 K/uL (4.8-10.8)
[2017-05-23] MEDS: ACETAMINOPHEN 325 MG TAB PO PRN ×2 (04:47→14:53)
[2017-05-23 04:49] LABS: CREATININE 1.3 mg/dL (0.5-1.5); POTASSIUM 4.9 mmol/L (3.5-5.1)
[2017-05-23] MEDS: INSULIN R PO SS1 SQ SCH ×4 (06:26→20:51)
[2017-05-23 07:00] VITALS: BP 172/86
[2017-05-23] MEDS: TRAMADOL HCL 50 MG TABLET PO PRN (07:51)
[2017-05-23] MEDS: FUROSEMIDE 40 MG TABLET PO SCH (07:54)
[2017-05-23] MEDS: VANCOMYCIN 500MG+NS 100ML 100 ML IV SCH ×2 (07:56→20:50)
[2017-05-23] MEDS: BRIMONIDINE TARTRATE 0.2% 5 ML BOTTLE OU SCH ×2 (07:57→20:50)
[2017-05-23] MEDS: INSULIN LISPRO 100 UNIT/ML 3ML SQ SCH ×3 (08:16→17:15)
[2017-05-23] MEDS: INSULIN GLARGINE 100 UNITS/ML 10 ML VIAL SQ SCH (08:17)
[2017-05-23] MEDS: PREDNISONE 5 MG TABLET PO SCH (08:32)
[2017-05-23] MEDS: ASPIRIN 81 MG EC TAB PO SCH (08:33)
[2017-05-23] MEDS: TIMOLOL MALEATE 0.5% 5 ML BOTTLE OU SCH ×2 (08:33→20:50)
[2017-05-23] MEDS: ERGOCALCIFEROL (VITAMIN D2) 50,000 UNIT CAPSULE PO SCH (08:33)
[2017-05-23] MEDS: GABAPENTIN 100 MG CAPSULE PO SCH (08:33)
[2017-05-23] MEDS: TACROLIMUS 1 MG CAPSULE PO SCH ×2 (08:34→20:51)
[2017-05-23] MEDS: FAMOTIDINE 20MG TAB 20 MG TAB PO SCH ×2 (08:34→20:50)
[2017-05-23] MEDS: SENNOSIDES 8.6 MG TABLET PO SCH ×2 (08:34→20:51)
[2017-05-23 11:00] VITALS: BP 141/75
[2017-05-23] MEDS: HYDROMORPHONE 1 MG/1 ML AMP IVP PRN ×2 (14:44→21:02)
[2017-05-23 16:00] VITALS: BP 159/79
[2017-05-23 20:00] VITALS: BP 158/78
[2017-05-23] MEDS: LATANOPROST 2.5 ML DROPS OU SCH (20:50)
[2017-05-23] MEDS: GABAPENTIN 300 MG CAPSULE PO SCH (20:51)
[2017-05-24] VITALS: BP 176/83
[2017-05-24] MEDS: MEROPENEM 500 MG VIAL IVP SCH ×4 (00:05→22:13)
[2017-05-24] MEDS: HYDROMORPHONE 1 MG/1 ML AMP IVP PRN ×5 (00:08→22:44)
[2017-05-24 04:00] VITALS: BP 174/85
[2017-05-24 05:44] LABS: POTASSIUM 4.3 mmol/L (3.5-5.1)
[2017-05-24 05:50] LABS: HEMATOCRIT 22.3 % (42-54); MEAN CORPUSCULAR HEMOGLOBIN 30.8 pg (27.0-33.0); MEAN CORPUSCULAR HGB CONC 34.6 g/dL (32.0-36.0); PLATELET COUNT (AUTO) 192 K/uL (130-400); RED BLOOD CELL COUNT(AUTO) 2.51 MIL/uL (4.50-6.20); WHITE BLOOD COUNT (AUTO) 7.7 K/uL (4.8-10.8)
[2017-05-24] MEDS: INSULIN R PO SS1 SQ SCH ×4 (06:30→21:00)
[2017-05-24] MEDS: INSULIN LISPRO 100 UNIT/ML 3ML SQ SCH ×3 (07:58→17:37)
[2017-05-24] MEDS: INSULIN GLARGINE 100 UNITS/ML 10 ML VIAL SQ SCH (07:59)
[2017-05-24 08:00] VITALS: BP 154/77
[2017-05-24] MEDS: TRAMADOL HCL 50 MG TABLET PO PRN (08:06)
[2017-05-24] MEDS: VANCOMYCIN 500MG+NS 100ML 100 ML IV SCH ×2 (08:06→22:13)
[2017-05-24] MEDS: FUROSEMIDE 40 MG TABLET PO SCH (08:06)
[2017-05-24] MEDS: PREDNISONE 5 MG TABLET PO SCH (08:08)
[2017-05-24] MEDS: ASPIRIN 81 MG EC TAB PO SCH (08:08)
[2017-05-24] MEDS: TIMOLOL MALEATE 0.5% 5 ML BOTTLE OU SCH ×2 (08:08→21:00)
[2017-05-24] MEDS: ERGOCALCIFEROL (VITAMIN D2) 50,000 UNIT CAPSULE PO SCH (08:08)
[2017-05-24] MEDS: BRIMONIDINE TARTRATE 0.2% 5 ML BOTTLE OU SCH ×2 (08:08→21:00)
[2017-05-24] MEDS: GABAPENTIN 100 MG CAPSULE PO SCH (08:09)
[2017-05-24] MEDS: TACROLIMUS 1 MG CAPSULE PO SCH ×2 (08:09→21:00)
[2017-05-24] MEDS: FAMOTIDINE 20MG TAB 20 MG TAB PO SCH ×2 (08:09→22:16)
[2017-05-24] MEDS: SENNOSIDES 8.6 MG TABLET PO SCH ×2 (08:09→21:00)
[2017-05-24 11:44] VITALS: BP 116/54
[2017-05-24 16:00] VITALS: BP 146/72
[2017-05-24] MEDS: ACETAMINOPHEN 325 MG TAB PO PRN (19:26)
[2017-05-24 20:00] VITALS: BP 140/76
[2017-05-24] MEDS: GABAPENTIN 300 MG CAPSULE PO SCH (21:00)
[2017-05-24] MEDS: LATANOPROST 2.5 ML DROPS OU SCH (21:00)
[2017-05-25] VITALS (7 sets, daily range): BP systolic 127–178; BP diastolic 70–88
[2017-05-25] MEDS: HYDROMORPHONE 1 MG/1 ML AMP IVP PRN ×3 (02:22→21:50)
[2017-05-25] MEDS: CLONIDINE HCL 0.1 MG TABLET PO PRN (04:23)
[2017-05-25 04:36] LABS: HEMATOCRIT 23.4 % (42-54); MEAN CORPUSCULAR HEMOGLOBIN 30.5 pg (27.0-33.0); MEAN CORPUSCULAR VOLUME 89.7 fL (79-99); PLATELET COUNT (AUTO) 163 K/uL (130-400); RED BLOOD CELL COUNT(AUTO) 2.61 MIL/uL (4.50-6.20); WHITE BLOOD COUNT (AUTO) 6.9 K/uL (4.8-10.8)
[2017-05-25 04:49] LABS: CREATININE 0.9 mg/dL (0.5-1.5); POTASSIUM 4.2 mmol/L (3.5-5.1)
[2017-05-25] MEDS: INSULIN LISPRO 100 UNIT/ML 3ML SQ SCH ×3 (06:31→16:26)
[2017-05-25] MEDS: INSULIN R PO SS1 SQ SCH ×4 (06:31→20:41)
[2017-05-25] MEDS: MEROPENEM 500 MG VIAL IVP SCH (07:39)
[2017-05-25] MEDS: INSULIN GLARGINE 100 UNITS/ML 10 ML VIAL SQ SCH (08:34)
[2017-05-25] MEDS: VANCOMYCIN 500MG+NS 100ML 100 ML IV SCH ×2 (08:38→20:58)
[2017-05-25] MEDS: TRAMADOL HCL 50 MG TABLET PO PRN (08:38)
[2017-05-25] MEDS: ERGOCALCIFEROL (VITAMIN D2) 50,000 UNIT CAPSULE PO SCH (08:48)
[2017-05-25] MEDS: BRIMONIDINE TARTRATE 0.2% 5 ML BOTTLE OU SCH ×2 (08:48→21:00)
[2017-05-25] MEDS: TIMOLOL MALEATE 0.5% 5 ML BOTTLE OU SCH ×2 (08:48→21:00)
[2017-05-25] MEDS: ASPIRIN 81 MG EC TAB PO SCH (08:48)
[2017-05-25] MEDS: FUROSEMIDE 40 MG TABLET PO SCH (08:48)
[2017-05-25] MEDS: PREDNISONE 5 MG TABLET PO SCH (08:48)
[2017-05-25] MEDS: TACROLIMUS 1 MG CAPSULE PO SCH ×2 (08:48→20:59)
[2017-05-25] MEDS: GABAPENTIN 100 MG CAPSULE PO SCH (08:48)
[2017-05-25] MEDS: SENNOSIDES 8.6 MG TABLET PO SCH ×2 (08:48→21:00)
[2017-05-25] MEDS: FAMOTIDINE 20MG TAB 20 MG TAB PO SCH ×2 (08:48→20:58)
[2017-05-25] MEDS ORDERED: HYDROCODONE/ACETAMINOPHEN 5/325 MG TAB PO PRN (12:45)
[2017-05-25] MEDS: GABAPENTIN 300 MG CAPSULE PO SCH (21:00)
[2017-05-25] MEDS: LATANOPROST 2.5 ML DROPS OU SCH (21:00)
[2017-05-26 03:00] VITALS: BP 145/75
[2017-05-26] MEDS: HYDROMORPHONE 1 MG/1 ML AMP IVP PRN ×3 (04:05→19:49)
[2017-05-26 04:13] LABS: MEAN CORPUSCULAR HGB CONC 35.7 g/dL (32.0-36.0); MEAN CORPUSCULAR VOLUME 89.7 fL (79-99); NUCLEATED RED BLOOD CELLS 0.1 % (0.0-0.19); PLATELET COUNT (AUTO) 148 K/uL (130-400); RED BLOOD CELL COUNT(AUTO) 2.15 MIL/uL (4.50-6.20); RED CELL DISTRIBUTION WIDTH 15.3 % (11.0-15.5); WHITE BLOOD COUNT (AUTO) 5.4 K/uL (4.8-10.8)
[2017-05-26 04:22] LABS: HEMATOCRIT 19.3 % (42-54)
[2017-05-26 04:31] LABS: CREATININE 0.9 mg/dL (0.5-1.5); POTASSIUM 4.5 mmol/L (3.5-5.1)
[2017-05-26] MEDS ORDERED: SODIUM CHLORIDE 0.9% 1000ML 1,000 ML IV SCH (05:00)
[2017-05-26] MEDS ORDERED: SODIUM CHLORIDE 0.9% 1000ML 1,000 ML IV ONE (05:00)
[2017-05-26] MEDS: INSULIN R PO SS1 SQ SCH ×4 (06:02→21:00)
[2017-05-26] MEDS: INSULIN LISPRO 100 UNIT/ML 3ML SQ SCH ×3 (07:03→16:38)
[2017-05-26] MEDS: VANCOMYCIN 500MG+NS 100ML 100 ML IV SCH ×2 (07:43→21:27)
[2017-05-26 08:00] VITALS: BP 153/71
[2017-05-26] MEDS: INSULIN GLARGINE 100 UNITS/ML 10 ML VIAL SQ SCH (08:16)
[2017-05-26] MEDS: FAMOTIDINE 20MG TAB 20 MG TAB PO SCH ×2 (08:16→21:28)
[2017-05-26] MEDS: BRIMONIDINE TARTRATE 0.2% 5 ML BOTTLE OU SCH ×2 (08:19→21:29)
[2017-05-26] MEDS: TIMOLOL MALEATE 0.5% 5 ML BOTTLE OU SCH ×2 (08:19→21:29)
[2017-05-26] MEDS: GABAPENTIN 100 MG CAPSULE PO SCH (08:20)
[2017-05-26] MEDS: ASPIRIN 81 MG EC TAB PO SCH (08:20)
[2017-05-26] MEDS: FUROSEMIDE 40 MG TABLET PO SCH (08:20)
[2017-05-26] MEDS: ERGOCALCIFEROL (VITAMIN D2) 50,000 UNIT CAPSULE PO SCH (08:20)
[2017-05-26] MEDS: TACROLIMUS 1 MG CAPSULE PO SCH ×2 (08:20→21:29)
[2017-05-26] MEDS: SENNOSIDES 8.6 MG TABLET PO SCH ×2 (08:20→21:29)
[2017-05-26] MEDS: PREDNISONE 5 MG TABLET PO SCH (08:20)
[2017-05-26 12:00] VITALS: BP 134/66
[2017-05-26] MEDS: ACETAMINOPHEN 325 MG TAB PO PRN (12:31)
[2017-05-26 16:00] VITALS: BP 148/89
[2017-05-26 19:00] VITALS: BP 166/76
[2017-05-26] MEDS: GABAPENTIN 300 MG CAPSULE PO SCH (21:29)
[2017-05-26] MEDS: LATANOPROST 2.5 ML DROPS OU SCH (21:29)
[2017-05-26 23:00] VITALS: BP 184/82
[2017-05-27 03:00] VITALS: BP 181/87
[2017-05-27] MEDS: HYDROMORPHONE 1 MG/1 ML AMP IVP PRN ×3 (03:14→11:22)
[2017-05-27] MEDS: INSULIN R PO SS1 SQ SCH ×2 (06:29→11:30)
[2017-05-27 07:08] LABS: HEMATOCRIT 28.3 % (42-54); MEAN CORPUSCULAR HGB CONC 35.3 g/dL (32.0-36.0); MEAN CORPUSCULAR VOLUME 87.7 fL (79-99); NUCLEATED RED BLOOD CELLS 0.1 % (0.0-0.19); PLATELET COUNT (AUTO) 156 K/uL (130-400); RED BLOOD CELL COUNT(AUTO) 3.23 MIL/uL (4.50-6.20); RED CELL DISTRIBUTION WIDTH 15.3 % (11.0-15.5); WHITE BLOOD COUNT (AUTO) 7.5 K/uL (4.8-10.8)
[2017-05-27] MEDS: INSULIN LISPRO 100 UNIT/ML 3ML SQ SCH ×2 (07:46→11:21)
[2017-05-27] MEDS: CLONIDINE HCL 0.1 MG TABLET PO PRN (07:47)
[2017-05-27 07:59] VITALS: BP 177/89
[2017-05-27] MEDS: FAMOTIDINE 20MG TAB 20 MG TAB PO SCH (08:06)
[2017-05-27] MEDS: INSULIN GLARGINE 100 UNITS/ML 10 ML VIAL SQ SCH (08:08)
[2017-05-27] MEDS: TACROLIMUS 1 MG CAPSULE PO SCH (09:00)
[2017-05-27] MEDS: TIMOLOL MALEATE 0.5% 5 ML BOTTLE OU SCH (09:00)
[2017-05-27] MEDS: ERGOCALCIFEROL (VITAMIN D2) 50,000 UNIT CAPSULE PO SCH (09:00)
[2017-05-27] MEDS: ASPIRIN 81 MG EC TAB PO SCH (09:00)
[2017-05-27] MEDS: FUROSEMIDE 40 MG TABLET PO SCH (09:00)
[2017-05-27] MEDS: BRIMONIDINE TARTRATE 0.2% 5 ML BOTTLE OU SCH (09:00)
[2017-05-27] MEDS: PREDNISONE 5 MG TABLET PO SCH (09:00)
[2017-05-27] MEDS: GABAPENTIN 100 MG CAPSULE PO SCH (09:00)
[2017-05-27] MEDS: SENNOSIDES 8.6 MG TABLET PO SCH (09:00)
[2017-05-27] MEDS: VANCOMYCIN 500MG+NS 100ML 100 ML IV SCH (09:01)
[2017-05-27 12:07] VITALS: BP 127/58
== END 2017-05-27 13:30 | DRG 475 ==
LOC: EDH 11:24 → EDHIP 13:38 → OBSVTOIN 13:38 → 3BH 05-14 01:32
PROVIDERS: ADMIT Family Medicine; ATTEND Family Medicine
PROC: 02HV33Z Insertion of Infusion Device into Superior Vena Cava, Percutaneous Approach (ICD-10-PCS; 2017-05-14)
PROC: 0Y6H0Z1 Detachment at Right Lower Leg, High, Open Approach (ICD-10-PCS; principal; 2017-05-21 07:46)
PROC: 30233N1 Transfusion of Nonautologous Red Blood Cells into Peripheral Vein, Percutaneous Approach (ICD-10-PCS; 2017-05-21 07:46)
DX: T87.43 Infection of amputation stump, right lower extremity (principal); E87.1 Hypo-osmolality and hyponatremia; E11.21 Type 2 diabetes mellitus with diabetic nephropathy; D70.9 Neutropenia, unspecified; E11.42 Type 2 diabetes mellitus with diabetic polyneuropathy; E11.319 Type 2 diabetes mellitus with unspecified diabetic retinopathy without macular edema; Z94.0 Kidney transplant status; E11.52 Type 2 diabetes mellitus with diabetic peripheral angiopathy with gangrene; L03.90 Cellulitis, unspecified; E11.22 Type 2 diabetes mellitus with diabetic chronic kidney disease; T85.898A Other specified complication of other internal prosthetic devices, implants and grafts, initial encounter; Y83.8 Other surgical procedures as the cause of abnormal reaction of the patient, or of later complication, without mention of misadventure at the time of the procedure; B95.62 Methicillin resistant Staphylococcus aureus infection as the cause of diseases classified elsewhere; N18.2 Chronic kidney disease, stage 2 (mild); B96.89 Other specified bacterial agents as the cause of diseases classified elsewhere; D63.1 Anemia in chronic kidney disease; E11.621 Type 2 diabetes mellitus with foot ulcer; E87.70 Fluid overload, unspecified; I25.10 Atherosclerotic heart disease of native coronary artery without angina pectoris; L97.509 Non-pressure chronic ulcer of other part of unspecified foot with unspecified severity; Y83.5 Amputation of limb(s) as the cause of abnormal reaction of the patient, or of later complication, without mention of misadventure at the time of the procedure; Z79.4 Long term (current) use of insulin; Y92.89 Other specified places as the place of occurrence of the external cause; Z95.1 Presence of aortocoronary bypass graft; Z89.439 Acquired absence of unspecified foot; Z83.3 Family history of diabetes mellitus; Z82.49 Family history of ischemic heart disease and other diseases of the circulatory system
CPT/HCPCS: 11042; 11045; 36415; 36430; 71045; 73562; 73718; 80048; 80053; 80069; 80202; 81001; 82248; 82550; 82553; 82948; 83605; 83690; 83874; 84484; 84550; 85014; 85018; 85025; 85027; 85610; 85730; 86850; 86900; 86901; 86922; 87040; 87088; 87186; 88307; 93005; 93306; 93922; 93923; 93926; 93971; 97039; A4218; J0360; J0696; J1100; J1170; J1815; J1940; J2001; J2185; J2250; J2270; J2370; J2704; J2710; J2795; J3010; J3370; J3490; J7030; J7507; J7512; P9016

== ENCOUNTER 2017-06-06 08:30 | Outpatient (CLI) | payer OTHER ==
[2017-06-06 12:25] VITALS: BP 130/71
== END 2017-06-06 16:00 | disposition home or self-care (01) ==
LOC: WHH 08:30
PROVIDERS: ATTEND Podiatrist Foot & Ankle Surgery
DX: T87.89 Other complications of amputation stump (principal); E11.621 Type 2 diabetes mellitus with foot ulcer; L97.521 Non-pressure chronic ulcer of other part of left foot limited to breakdown of skin; E11.622 Type 2 diabetes mellitus with other skin ulcer; L97.811 Non-pressure chronic ulcer of other part of right lower leg limited to breakdown of skin; I25.10 Atherosclerotic heart disease of native coronary artery without angina pectoris; E11.319 Type 2 diabetes mellitus with unspecified diabetic retinopathy without macular edema; E11.42 Type 2 diabetes mellitus with diabetic polyneuropathy; E11.22 Type 2 diabetes mellitus with diabetic chronic kidney disease; I13.2 Hypertensive heart and chronic kidney disease with heart failure and with stage 5 chronic kidney disease, or end stage renal disease; N18.6 End stage renal disease; I50.9 Heart failure, unspecified; E78.5 Hyperlipidemia, unspecified; E11.52 Type 2 diabetes mellitus with diabetic peripheral angiopathy with gangrene; I96 Gangrene, not elsewhere classified; E11.69 Type 2 diabetes mellitus with other specified complication; M86.8X7 Other osteomyelitis, ankle and foot; Z87.891 Personal history of nicotine dependence; Z95.1 Presence of aortocoronary bypass graft; Z79.4 Long term (current) use of insulin; Y83.5 Amputation of limb(s) as the cause of abnormal reaction of the patient, or of later complication, without mention of misadventure at the time of the procedure
CPT/HCPCS: G0463

== ENCOUNTER → 2017-06-21 | Outpatient (CLI) | payer OTHER ==
[~2017-06-21] MED LIST changes: +SANTYL AUTOSUB TO MEDIHONEY FOR INPT TP ONE
[2017-06-21 12:39] VITALS: BP 121/73
== END | disposition home or self-care (01) ==
LOC: WHH 09:00
PROVIDERS: ATTEND Surgery
DX: T87.89 Other complications of amputation stump (principal); E11.621 Type 2 diabetes mellitus with foot ulcer; L97.521 Non-pressure chronic ulcer of other part of left foot limited to breakdown of skin; E11.622 Type 2 diabetes mellitus with other skin ulcer; L97.811 Non-pressure chronic ulcer of other part of right lower leg limited to breakdown of skin; I25.10 Atherosclerotic heart disease of native coronary artery without angina pectoris; E11.319 Type 2 diabetes mellitus with unspecified diabetic retinopathy without macular edema; E11.42 Type 2 diabetes mellitus with diabetic polyneuropathy; E11.22 Type 2 diabetes mellitus with diabetic chronic kidney disease; I13.2 Hypertensive heart and chronic kidney disease with heart failure and with stage 5 chronic kidney disease, or end stage renal disease; N18.6 End stage renal disease; I50.9 Heart failure, unspecified; E78.5 Hyperlipidemia, unspecified; E11.52 Type 2 diabetes mellitus with diabetic peripheral angiopathy with gangrene; I96 Gangrene, not elsewhere classified; E11.69 Type 2 diabetes mellitus with other specified complication; M86.8X7 Other osteomyelitis, ankle and foot; Z87.891 Personal history of nicotine dependence; Z95.1 Presence of aortocoronary bypass graft; Z79.4 Long term (current) use of insulin; Y83.5 Amputation of limb(s) as the cause of abnormal reaction of the patient, or of later complication, without mention of misadventure at the time of the procedure
CPT/HCPCS: G0463

== ENCOUNTER → 2017-06-28 | Outpatient (CLI) | payer OTHER ==
[~2017-06-28] MED LIST changes: -SANTYL AUTOSUB TO MEDIHONEY FOR INPT TP ONE
[2017-06-28 10:46] VITALS: BP 115/77
== END | disposition home or self-care (01) ==
LOC: WHH 09:00
PROVIDERS: ATTEND Surgery
DX: T87.89 Other complications of amputation stump (principal); I25.10 Atherosclerotic heart disease of native coronary artery without angina pectoris; E78.5 Hyperlipidemia, unspecified; E11.22 Type 2 diabetes mellitus with diabetic chronic kidney disease; I13.2 Hypertensive heart and chronic kidney disease with heart failure and with stage 5 chronic kidney disease, or end stage renal disease; N18.6 End stage renal disease; I50.9 Heart failure, unspecified; E11.52 Type 2 diabetes mellitus with diabetic peripheral angiopathy with gangrene; I96 Gangrene, not elsewhere classified; E11.69 Type 2 diabetes mellitus with other specified complication; M86.8X7 Other osteomyelitis, ankle and foot; E11.42 Type 2 diabetes mellitus with diabetic polyneuropathy; E11.319 Type 2 diabetes mellitus with unspecified diabetic retinopathy without macular edema; E11.21 Type 2 diabetes mellitus with diabetic nephropathy; E78.00 Pure hypercholesterolemia, unspecified; Z95.1 Presence of aortocoronary bypass graft; Z87.891 Personal history of nicotine dependence; Z94.0 Kidney transplant status; Z99.2 Dependence on renal dialysis; Z79.4 Long term (current) use of insulin; Y83.5 Amputation of limb(s) as the cause of abnormal reaction of the patient, or of later complication, without mention of misadventure at the time of the procedure
CPT/HCPCS: 11042

== ENCOUNTER → 2017-07-05 | Outpatient (CLI) | payer OTHER ==
[~2017-07-05] MED LIST changes: +LIDOCAINE/PRILOCAINE CREAM 5GM TUBE TP ONE
[2017-07-05 11:56] VITALS: BP 95/58
== END | disposition home or self-care (01) ==
LOC: WHH 09:00
PROVIDERS: ATTEND Surgery
DX: T87.89 Other complications of amputation stump (principal); E11.22 Type 2 diabetes mellitus with diabetic chronic kidney disease; I13.2 Hypertensive heart and chronic kidney disease with heart failure and with stage 5 chronic kidney disease, or end stage renal disease; N18.6 End stage renal disease; I50.9 Heart failure, unspecified; E11.52 Type 2 diabetes mellitus with diabetic peripheral angiopathy with gangrene; I96 Gangrene, not elsewhere classified; E78.5 Hyperlipidemia, unspecified; E11.69 Type 2 diabetes mellitus with other specified complication; M86.8X7 Other osteomyelitis, ankle and foot; E78.00 Pure hypercholesterolemia, unspecified; E11.21 Type 2 diabetes mellitus with diabetic nephropathy; E11.42 Type 2 diabetes mellitus with diabetic polyneuropathy; E11.319 Type 2 diabetes mellitus with unspecified diabetic retinopathy without macular edema; Z87.891 Personal history of nicotine dependence; Z95.1 Presence of aortocoronary bypass graft; Z94.0 Kidney transplant status; Z79.4 Long term (current) use of insulin; Z99.2 Dependence on renal dialysis; Y83.5 Amputation of limb(s) as the cause of abnormal reaction of the patient, or of later complication, without mention of misadventure at the time of the procedure
CPT/HCPCS: 11042; J3490

== ENCOUNTER → 2017-07-12 | Outpatient (CLI) | payer OTHER ==
[2017-07-12 11:08] VITALS: BP 98/65
== END | disposition home or self-care (01) ==
LOC: WHH 09:00
PROVIDERS: ATTEND Surgery
DX: T87.89 Other complications of amputation stump (principal); E11.52 Type 2 diabetes mellitus with diabetic peripheral angiopathy with gangrene; I96 Gangrene, not elsewhere classified; E11.22 Type 2 diabetes mellitus with diabetic chronic kidney disease; I13.2 Hypertensive heart and chronic kidney disease with heart failure and with stage 5 chronic kidney disease, or end stage renal disease; N18.6 End stage renal disease; I50.9 Heart failure, unspecified; E78.5 Hyperlipidemia, unspecified; E11.69 Type 2 diabetes mellitus with other specified complication; M86.8X7 Other osteomyelitis, ankle and foot; E78.00 Pure hypercholesterolemia, unspecified; E11.42 Type 2 diabetes mellitus with diabetic polyneuropathy; E11.21 Type 2 diabetes mellitus with diabetic nephropathy; I25.10 Atherosclerotic heart disease of native coronary artery without angina pectoris; E11.319 Type 2 diabetes mellitus with unspecified diabetic retinopathy without macular edema; Z95.1 Presence of aortocoronary bypass graft; Z87.891 Personal history of nicotine dependence; Z79.4 Long term (current) use of insulin; Z99.2 Dependence on renal dialysis; Z94.0 Kidney transplant status; Y83.5 Amputation of limb(s) as the cause of abnormal reaction of the patient, or of later complication, without mention of misadventure at the time of the procedure
CPT/HCPCS: 11042; A4450; A6021; J3490

== ENCOUNTER → 2017-07-19 | Outpatient (CLI) | payer OTHER ==
[2017-07-19 10:40] VITALS: BP 99/57
== END | disposition home or self-care (01) ==
LOC: WHH 08:50
PROVIDERS: ATTEND Surgery
DX: T87.89 Other complications of amputation stump (principal); E11.52 Type 2 diabetes mellitus with diabetic peripheral angiopathy with gangrene; I96 Gangrene, not elsewhere classified; E11.22 Type 2 diabetes mellitus with diabetic chronic kidney disease; I13.2 Hypertensive heart and chronic kidney disease with heart failure and with stage 5 chronic kidney disease, or end stage renal disease; N18.6 End stage renal disease; I50.9 Heart failure, unspecified; E78.5 Hyperlipidemia, unspecified; E11.69 Type 2 diabetes mellitus with other specified complication; M86.8X7 Other osteomyelitis, ankle and foot; E78.00 Pure hypercholesterolemia, unspecified; E11.42 Type 2 diabetes mellitus with diabetic polyneuropathy; E11.21 Type 2 diabetes mellitus with diabetic nephropathy; I25.10 Atherosclerotic heart disease of native coronary artery without angina pectoris; E11.319 Type 2 diabetes mellitus with unspecified diabetic retinopathy without macular edema; Z95.1 Presence of aortocoronary bypass graft; Z87.891 Personal history of nicotine dependence; Z79.4 Long term (current) use of insulin; Z99.2 Dependence on renal dialysis; Z94.0 Kidney transplant status; Y83.5 Amputation of limb(s) as the cause of abnormal reaction of the patient, or of later complication, without mention of misadventure at the time of the procedure
CPT/HCPCS: 11042; A6021

== ENCOUNTER → 2017-07-26 | Outpatient (CLI) | payer OTHER ==
[~2017-07-26] MED LIST changes: -LIDOCAINE/PRILOCAINE CREAM 5GM TUBE TP ONE
[2017-07-26 13:27] VITALS: BP 115/68
== END | disposition home or self-care (01) ==
LOC: WHH 09:10
PROVIDERS: ATTEND Podiatrist Foot & Ankle Surgery
DX: T87.89 Other complications of amputation stump (principal); E11.52 Type 2 diabetes mellitus with diabetic peripheral angiopathy with gangrene; I96 Gangrene, not elsewhere classified; E11.22 Type 2 diabetes mellitus with diabetic chronic kidney disease; I13.2 Hypertensive heart and chronic kidney disease with heart failure and with stage 5 chronic kidney disease, or end stage renal disease; N18.6 End stage renal disease; I50.9 Heart failure, unspecified; E78.5 Hyperlipidemia, unspecified; E11.69 Type 2 diabetes mellitus with other specified complication; M86.8X7 Other osteomyelitis, ankle and foot; E78.00 Pure hypercholesterolemia, unspecified; E11.42 Type 2 diabetes mellitus with diabetic polyneuropathy; E11.21 Type 2 diabetes mellitus with diabetic nephropathy; I25.10 Atherosclerotic heart disease of native coronary artery without angina pectoris; E11.319 Type 2 diabetes mellitus with unspecified diabetic retinopathy without macular edema; Z95.1 Presence of aortocoronary bypass graft; Z87.891 Personal history of nicotine dependence; Z79.4 Long term (current) use of insulin; Z99.2 Dependence on renal dialysis; Z94.0 Kidney transplant status; Y83.5 Amputation of limb(s) as the cause of abnormal reaction of the patient, or of later complication, without mention of misadventure at the time of the procedure
CPT/HCPCS: 11042; A6021

== ENCOUNTER → 2017-08-02 | Outpatient (CLI) | payer OTHER ==
[~2017-08-02] MED LIST changes: +LIDOCAINE/PRILOCAINE CREAM 5GM TUBE TP ONE
[2017-08-02 11:21] VITALS: BP 95/61
== END | disposition home or self-care (01) ==
LOC: WHH 09:00
PROVIDERS: ATTEND Surgery
DX: T87.89 Other complications of amputation stump (principal); I25.10 Atherosclerotic heart disease of native coronary artery without angina pectoris; E11.52 Type 2 diabetes mellitus with diabetic peripheral angiopathy with gangrene; I96 Gangrene, not elsewhere classified; E78.5 Hyperlipidemia, unspecified; E11.22 Type 2 diabetes mellitus with diabetic chronic kidney disease; I13.2 Hypertensive heart and chronic kidney disease with heart failure and with stage 5 chronic kidney disease, or end stage renal disease; N18.6 End stage renal disease; I50.9 Heart failure, unspecified; E11.69 Type 2 diabetes mellitus with other specified complication; M86.8X7 Other osteomyelitis, ankle and foot; E78.00 Pure hypercholesterolemia, unspecified; E11.21 Type 2 diabetes mellitus with diabetic nephropathy; E11.42 Type 2 diabetes mellitus with diabetic polyneuropathy; E11.319 Type 2 diabetes mellitus with unspecified diabetic retinopathy without macular edema; Z87.891 Personal history of nicotine dependence; Z95.1 Presence of aortocoronary bypass graft; Z99.2 Dependence on renal dialysis; Z79.4 Long term (current) use of insulin; Z94.0 Kidney transplant status; Y83.5 Amputation of limb(s) as the cause of abnormal reaction of the patient, or of later complication, without mention of misadventure at the time of the procedure
CPT/HCPCS: 11042; A6021; J3490

== ENCOUNTER → 2017-08-09 | Outpatient (CLI) | payer OTHER ==
[2017-08-09 13:21] VITALS: BP 116/64
== END | disposition home or self-care (01) ==
LOC: WHH 09:00
PROVIDERS: ATTEND Surgery
DX: T87.89 Other complications of amputation stump (principal); I25.10 Atherosclerotic heart disease of native coronary artery without angina pectoris; E11.52 Type 2 diabetes mellitus with diabetic peripheral angiopathy with gangrene; I96 Gangrene, not elsewhere classified; E78.5 Hyperlipidemia, unspecified; E11.22 Type 2 diabetes mellitus with diabetic chronic kidney disease; I13.2 Hypertensive heart and chronic kidney disease with heart failure and with stage 5 chronic kidney disease, or end stage renal disease; N18.6 End stage renal disease; I50.9 Heart failure, unspecified; E11.69 Type 2 diabetes mellitus with other specified complication; M86.8X7 Other osteomyelitis, ankle and foot; E78.00 Pure hypercholesterolemia, unspecified; E11.21 Type 2 diabetes mellitus with diabetic nephropathy; E11.42 Type 2 diabetes mellitus with diabetic polyneuropathy; E11.319 Type 2 diabetes mellitus with unspecified diabetic retinopathy without macular edema; Z87.891 Personal history of nicotine dependence; Z95.1 Presence of aortocoronary bypass graft; Z99.2 Dependence on renal dialysis; Z79.4 Long term (current) use of insulin; Z94.0 Kidney transplant status; Y83.5 Amputation of limb(s) as the cause of abnormal reaction of the patient, or of later complication, without mention of misadventure at the time of the procedure
CPT/HCPCS: 97597; A6021; J3490

== ENCOUNTER → 2017-10-24 | Outpatient (CLI) | payer OTHER ==
[~2017-10-24] MED LIST changes: -LIDOCAINE/PRILOCAINE CREAM 5GM TUBE TP ONE
[2017-10-24 14:45] VITALS: BP 120/71
== END | disposition home or self-care (01) ==
LOC: WHH 10:40
PROVIDERS: ATTEND Podiatrist Foot & Ankle Surgery
DX: T87.89 Other complications of amputation stump (principal); E11.621 Type 2 diabetes mellitus with foot ulcer; L97.521 Non-pressure chronic ulcer of other part of left foot limited to breakdown of skin; I25.10 Atherosclerotic heart disease of native coronary artery without angina pectoris; E11.52 Type 2 diabetes mellitus with diabetic peripheral angiopathy with gangrene; I96 Gangrene, not elsewhere classified; I12.0 Hypertensive chronic kidney disease with stage 5 chronic kidney disease or end stage renal disease; E11.22 Type 2 diabetes mellitus with diabetic chronic kidney disease; N18.6 End stage renal disease; E78.5 Hyperlipidemia, unspecified; E11.69 Type 2 diabetes mellitus with other specified complication; M86.8X7 Other osteomyelitis, ankle and foot; E78.00 Pure hypercholesterolemia, unspecified; E11.42 Type 2 diabetes mellitus with diabetic polyneuropathy; E11.21 Type 2 diabetes mellitus with diabetic nephropathy; E11.319 Type 2 diabetes mellitus with unspecified diabetic retinopathy without macular edema; Z95.1 Presence of aortocoronary bypass graft; Z87.891 Personal history of nicotine dependence; Z79.4 Long term (current) use of insulin; Z94.0 Kidney transplant status; Z99.2 Dependence on renal dialysis; Y83.5 Amputation of limb(s) as the cause of abnormal reaction of the patient, or of later complication, without mention of misadventure at the time of the procedure
CPT/HCPCS: 11042; A4450; A6248

== ENCOUNTER → 2017-10-31 | Outpatient (CLI) | payer OTHER ==
[2017-10-31 12:50] VITALS: BP 123/82
== END | disposition home or self-care (01) ==
LOC: WHH 10:45
PROVIDERS: ATTEND Podiatrist Foot & Ankle Surgery
DX: T87.89 Other complications of amputation stump (principal); E11.621 Type 2 diabetes mellitus with foot ulcer; L97.521 Non-pressure chronic ulcer of other part of left foot limited to breakdown of skin; I25.10 Atherosclerotic heart disease of native coronary artery without angina pectoris; E11.52 Type 2 diabetes mellitus with diabetic peripheral angiopathy with gangrene; I96 Gangrene, not elsewhere classified; I12.0 Hypertensive chronic kidney disease with stage 5 chronic kidney disease or end stage renal disease; E11.22 Type 2 diabetes mellitus with diabetic chronic kidney disease; N18.6 End stage renal disease; E78.5 Hyperlipidemia, unspecified; E11.69 Type 2 diabetes mellitus with other specified complication; M86.8X7 Other osteomyelitis, ankle and foot; E78.00 Pure hypercholesterolemia, unspecified; E11.42 Type 2 diabetes mellitus with diabetic polyneuropathy; E11.21 Type 2 diabetes mellitus with diabetic nephropathy; E11.319 Type 2 diabetes mellitus with unspecified diabetic retinopathy without macular edema; Z95.1 Presence of aortocoronary bypass graft; Z87.891 Personal history of nicotine dependence; Z79.4 Long term (current) use of insulin; Z94.0 Kidney transplant status; Z99.2 Dependence on renal dialysis; Y83.5 Amputation of limb(s) as the cause of abnormal reaction of the patient, or of later complication, without mention of misadventure at the time of the procedure
CPT/HCPCS: A6209; G0463

== ENCOUNTER → 2017-11-07 | Outpatient (CLI) | payer OTHER ==
[2017-11-07 13:58] VITALS: BP 98/68
== END | disposition home or self-care (01) ==
LOC: WHH 11:00
PROVIDERS: ATTEND Podiatrist Foot & Ankle Surgery
DX: T87.89 Other complications of amputation stump (principal); E11.621 Type 2 diabetes mellitus with foot ulcer; L97.521 Non-pressure chronic ulcer of other part of left foot limited to breakdown of skin; I25.10 Atherosclerotic heart disease of native coronary artery without angina pectoris; E11.52 Type 2 diabetes mellitus with diabetic peripheral angiopathy with gangrene; I96 Gangrene, not elsewhere classified; E11.22 Type 2 diabetes mellitus with diabetic chronic kidney disease; I12.0 Hypertensive chronic kidney disease with stage 5 chronic kidney disease or end stage renal disease; N18.6 End stage renal disease; E78.5 Hyperlipidemia, unspecified; E11.69 Type 2 diabetes mellitus with other specified complication; M86.8X7 Other osteomyelitis, ankle and foot; E78.00 Pure hypercholesterolemia, unspecified; E11.42 Type 2 diabetes mellitus with diabetic polyneuropathy; E11.21 Type 2 diabetes mellitus with diabetic nephropathy; E11.319 Type 2 diabetes mellitus with unspecified diabetic retinopathy without macular edema; Z95.1 Presence of aortocoronary bypass graft; Z87.891 Personal history of nicotine dependence; Z79.4 Long term (current) use of insulin; Z94.0 Kidney transplant status; Z99.2 Dependence on renal dialysis; Y83.5 Amputation of limb(s) as the cause of abnormal reaction of the patient, or of later complication, without mention of misadventure at the time of the procedure
CPT/HCPCS: 11042; 87070; 87077; 87186; A6021

== ENCOUNTER → 2017-11-14 | Outpatient (CLI) | payer OTHER ==
[2017-11-14 11:42] VITALS: BP 145/79
== END | disposition home or self-care (01) ==
LOC: WHH 10:50
PROVIDERS: ATTEND Podiatrist Foot & Ankle Surgery
DX: T87.89 Other complications of amputation stump (principal); E11.621 Type 2 diabetes mellitus with foot ulcer; L97.521 Non-pressure chronic ulcer of other part of left foot limited to breakdown of skin; I25.10 Atherosclerotic heart disease of native coronary artery without angina pectoris; E11.52 Type 2 diabetes mellitus with diabetic peripheral angiopathy with gangrene; I96 Gangrene, not elsewhere classified; E11.22 Type 2 diabetes mellitus with diabetic chronic kidney disease; I12.0 Hypertensive chronic kidney disease with stage 5 chronic kidney disease or end stage renal disease; N18.6 End stage renal disease; E78.5 Hyperlipidemia, unspecified; E11.69 Type 2 diabetes mellitus with other specified complication; M86.8X7 Other osteomyelitis, ankle and foot; E78.00 Pure hypercholesterolemia, unspecified; E11.42 Type 2 diabetes mellitus with diabetic polyneuropathy; E11.21 Type 2 diabetes mellitus with diabetic nephropathy; E11.319 Type 2 diabetes mellitus with unspecified diabetic retinopathy without macular edema; Z95.1 Presence of aortocoronary bypass graft; Z87.891 Personal history of nicotine dependence; Z79.4 Long term (current) use of insulin; Z94.0 Kidney transplant status; Z99.2 Dependence on renal dialysis; Y83.5 Amputation of limb(s) as the cause of abnormal reaction of the patient, or of later complication, without mention of misadventure at the time of the procedure
CPT/HCPCS: 11042; 36415; 82565; 84520; A6021

== ENCOUNTER → 2017-11-21 | Outpatient (CLI) | payer OTHER ==
[2017-11-21 12:11] VITALS: BP 117/68
== END | disposition home or self-care (01) ==
LOC: WHH 10:45
PROVIDERS: ATTEND Podiatrist Foot & Ankle Surgery
DX: T87.89 Other complications of amputation stump (principal); E11.621 Type 2 diabetes mellitus with foot ulcer; L97.521 Non-pressure chronic ulcer of other part of left foot limited to breakdown of skin; I25.10 Atherosclerotic heart disease of native coronary artery without angina pectoris; E11.52 Type 2 diabetes mellitus with diabetic peripheral angiopathy with gangrene; I96 Gangrene, not elsewhere classified; E11.22 Type 2 diabetes mellitus with diabetic chronic kidney disease; I12.0 Hypertensive chronic kidney disease with stage 5 chronic kidney disease or end stage renal disease; N18.6 End stage renal disease; E78.5 Hyperlipidemia, unspecified; E11.69 Type 2 diabetes mellitus with other specified complication; M86.8X7 Other osteomyelitis, ankle and foot; E78.00 Pure hypercholesterolemia, unspecified; E11.42 Type 2 diabetes mellitus with diabetic polyneuropathy; E11.21 Type 2 diabetes mellitus with diabetic nephropathy; E11.319 Type 2 diabetes mellitus with unspecified diabetic retinopathy without macular edema; Z95.1 Presence of aortocoronary bypass graft; Z87.891 Personal history of nicotine dependence; Z79.4 Long term (current) use of insulin; Z94.0 Kidney transplant status; Z99.2 Dependence on renal dialysis; Y83.5 Amputation of limb(s) as the cause of abnormal reaction of the patient, or of later complication, without mention of misadventure at the time of the procedure
CPT/HCPCS: 11042; 87070; 87077 ×2; 87186 ×2; A6260

== ENCOUNTER → 2017-11-28 | Outpatient (CLI) | payer OTHER ==
[2017-11-28 13:22] VITALS: BP 170/95
== END | disposition home or self-care (01) ==
LOC: WHH 10:45
PROVIDERS: ATTEND Podiatrist Foot & Ankle Surgery
DX: T87.89 Other complications of amputation stump (principal); E11.621 Type 2 diabetes mellitus with foot ulcer; L97.521 Non-pressure chronic ulcer of other part of left foot limited to breakdown of skin; I25.10 Atherosclerotic heart disease of native coronary artery without angina pectoris; E11.52 Type 2 diabetes mellitus with diabetic peripheral angiopathy with gangrene; I96 Gangrene, not elsewhere classified; E11.22 Type 2 diabetes mellitus with diabetic chronic kidney disease; I12.0 Hypertensive chronic kidney disease with stage 5 chronic kidney disease or end stage renal disease; N18.6 End stage renal disease; E78.5 Hyperlipidemia, unspecified; E11.69 Type 2 diabetes mellitus with other specified complication; M86.8X7 Other osteomyelitis, ankle and foot; E78.00 Pure hypercholesterolemia, unspecified; E11.42 Type 2 diabetes mellitus with diabetic polyneuropathy; E11.21 Type 2 diabetes mellitus with diabetic nephropathy; E11.319 Type 2 diabetes mellitus with unspecified diabetic retinopathy without macular edema; Z95.1 Presence of aortocoronary bypass graft; Z87.891 Personal history of nicotine dependence; Z79.4 Long term (current) use of insulin; Z94.0 Kidney transplant status; Z99.2 Dependence on renal dialysis; Y83.5 Amputation of limb(s) as the cause of abnormal reaction of the patient, or of later complication, without mention of misadventure at the time of the procedure
CPT/HCPCS: 11042

== ENCOUNTER → 2017-12-05 | Outpatient (CLI) | payer OTHER ==
[2017-12-05 11:47] VITALS: BP 138/84
== END | disposition home or self-care (01) ==
LOC: WHH 10:45
PROVIDERS: ATTEND Podiatrist Foot & Ankle Surgery
DX: T87.89 Other complications of amputation stump (principal); E11.621 Type 2 diabetes mellitus with foot ulcer; L97.521 Non-pressure chronic ulcer of other part of left foot limited to breakdown of skin; I25.10 Atherosclerotic heart disease of native coronary artery without angina pectoris; E11.52 Type 2 diabetes mellitus with diabetic peripheral angiopathy with gangrene; I96 Gangrene, not elsewhere classified; E11.22 Type 2 diabetes mellitus with diabetic chronic kidney disease; I12.0 Hypertensive chronic kidney disease with stage 5 chronic kidney disease or end stage renal disease; N18.6 End stage renal disease; E78.5 Hyperlipidemia, unspecified; E11.69 Type 2 diabetes mellitus with other specified complication; M86.8X7 Other osteomyelitis, ankle and foot; E78.00 Pure hypercholesterolemia, unspecified; E11.42 Type 2 diabetes mellitus with diabetic polyneuropathy; E11.21 Type 2 diabetes mellitus with diabetic nephropathy; E11.319 Type 2 diabetes mellitus with unspecified diabetic retinopathy without macular edema; Z95.1 Presence of aortocoronary bypass graft; Z87.891 Personal history of nicotine dependence; Z79.4 Long term (current) use of insulin; Z94.0 Kidney transplant status; Z99.2 Dependence on renal dialysis; Y83.5 Amputation of limb(s) as the cause of abnormal reaction of the patient, or of later complication, without mention of misadventure at the time of the procedure
CPT/HCPCS: G0463

== ENCOUNTER → 2017-12-12 | Outpatient (CLI) | payer OTHER ==
[2017-12-12 12:36] VITALS: BP 159/92
== END | disposition home or self-care (01) ==
LOC: WHH 10:30
PROVIDERS: ATTEND Podiatrist Foot & Ankle Surgery
DX: T87.89 Other complications of amputation stump (principal); E11.621 Type 2 diabetes mellitus with foot ulcer; L97.522 Non-pressure chronic ulcer of other part of left foot with fat layer exposed; I25.10 Atherosclerotic heart disease of native coronary artery without angina pectoris; E11.52 Type 2 diabetes mellitus with diabetic peripheral angiopathy with gangrene; I96 Gangrene, not elsewhere classified; E11.22 Type 2 diabetes mellitus with diabetic chronic kidney disease; I12.0 Hypertensive chronic kidney disease with stage 5 chronic kidney disease or end stage renal disease; N18.6 End stage renal disease; E78.5 Hyperlipidemia, unspecified; E11.69 Type 2 diabetes mellitus with other specified complication; M86.8X7 Other osteomyelitis, ankle and foot; E78.00 Pure hypercholesterolemia, unspecified; E11.42 Type 2 diabetes mellitus with diabetic polyneuropathy; E11.21 Type 2 diabetes mellitus with diabetic nephropathy; E11.319 Type 2 diabetes mellitus with unspecified diabetic retinopathy without macular edema; Z95.1 Presence of aortocoronary bypass graft; Z87.891 Personal history of nicotine dependence; Z79.4 Long term (current) use of insulin; Z99.2 Dependence on renal dialysis; Z94.0 Kidney transplant status; Y83.5 Amputation of limb(s) as the cause of abnormal reaction of the patient, or of later complication, without mention of misadventure at the time of the procedure
CPT/HCPCS: 11042; A6021

== ENCOUNTER → 2017-12-19 | Outpatient (CLI) | payer OTHER ==
[2017-12-19 11:17] VITALS: BP 143/88
== END | disposition home or self-care (01) ==
LOC: WHH 10:45
PROVIDERS: ATTEND Podiatrist Foot & Ankle Surgery
DX: T87.89 Other complications of amputation stump (principal); E11.621 Type 2 diabetes mellitus with foot ulcer; L97.522 Non-pressure chronic ulcer of other part of left foot with fat layer exposed; I25.10 Atherosclerotic heart disease of native coronary artery without angina pectoris; E11.52 Type 2 diabetes mellitus with diabetic peripheral angiopathy with gangrene; I96 Gangrene, not elsewhere classified; E11.22 Type 2 diabetes mellitus with diabetic chronic kidney disease; I12.0 Hypertensive chronic kidney disease with stage 5 chronic kidney disease or end stage renal disease; N18.6 End stage renal disease; E78.5 Hyperlipidemia, unspecified; E11.69 Type 2 diabetes mellitus with other specified complication; M86.8X7 Other osteomyelitis, ankle and foot; E78.00 Pure hypercholesterolemia, unspecified; E11.42 Type 2 diabetes mellitus with diabetic polyneuropathy; E11.21 Type 2 diabetes mellitus with diabetic nephropathy; E11.319 Type 2 diabetes mellitus with unspecified diabetic retinopathy without macular edema; Z95.1 Presence of aortocoronary bypass graft; Z87.891 Personal history of nicotine dependence; Z79.4 Long term (current) use of insulin; Z99.2 Dependence on renal dialysis; Z94.0 Kidney transplant status; Y83.5 Amputation of limb(s) as the cause of abnormal reaction of the patient, or of later complication, without mention of misadventure at the time of the procedure
CPT/HCPCS: 11042; A6021

== ENCOUNTER → 2018-01-02 | Outpatient (CLI) | payer OTHER ==
[2018-01-02 13:00] VITALS: BP 132/88
== END ==
LOC: WHH 10:30
PROVIDERS: ATTEND Podiatrist Foot & Ankle Surgery
DX: T87.89 Other complications of amputation stump (principal); E11.621 Type 2 diabetes mellitus with foot ulcer; L97.522 Non-pressure chronic ulcer of other part of left foot with fat layer exposed; I25.10 Atherosclerotic heart disease of native coronary artery without angina pectoris; E11.52 Type 2 diabetes mellitus with diabetic peripheral angiopathy with gangrene; I96 Gangrene, not elsewhere classified; E11.22 Type 2 diabetes mellitus with diabetic chronic kidney disease; I12.0 Hypertensive chronic kidney disease with stage 5 chronic kidney disease or end stage renal disease; N18.6 End stage renal disease; E78.5 Hyperlipidemia, unspecified; E11.69 Type 2 diabetes mellitus with other specified complication; M86.8X7 Other osteomyelitis, ankle and foot; E78.00 Pure hypercholesterolemia, unspecified; E11.42 Type 2 diabetes mellitus with diabetic polyneuropathy; E11.21 Type 2 diabetes mellitus with diabetic nephropathy; E11.319 Type 2 diabetes mellitus with unspecified diabetic retinopathy without macular edema; Z95.1 Presence of aortocoronary bypass graft; Z87.891 Personal history of nicotine dependence; Z79.4 Long term (current) use of insulin; Z99.2 Dependence on renal dialysis; Z94.0 Kidney transplant status; Y83.5 Amputation of limb(s) as the cause of abnormal reaction of the patient, or of later complication, without mention of misadventure at the time of the procedure
CPT/HCPCS: 11042; A6248

== ENCOUNTER → 2018-01-09 | Outpatient (CLI) | payer OTHER ==
[~2018-01-09] MED LIST changes: +CEFTAZIDIME PENTAHYDRATE 1 GM/VIAL IM SCH; +CEFTAZIDIME PENTAHYDRATE 1 GM/VIAL IVP ONE; +LIDOCAINE HCL MPF 1% 5ML VIAL IM SCH; -SENN-175 PO; +SENN8.6T32 PO
[2018-01-09 14:01] VITALS: BP 135/71
== END | disposition home or self-care (01) ==
LOC: WHH 10:30
PROVIDERS: ATTEND Podiatrist Foot & Ankle Surgery
DX: T87.89 Other complications of amputation stump (principal); E11.621 Type 2 diabetes mellitus with foot ulcer; L97.521 Non-pressure chronic ulcer of other part of left foot limited to breakdown of skin; I25.10 Atherosclerotic heart disease of native coronary artery without angina pectoris; E11.52 Type 2 diabetes mellitus with diabetic peripheral angiopathy with gangrene; I96 Gangrene, not elsewhere classified; E11.22 Type 2 diabetes mellitus with diabetic chronic kidney disease; I12.0 Hypertensive chronic kidney disease with stage 5 chronic kidney disease or end stage renal disease; N18.6 End stage renal disease; E78.5 Hyperlipidemia, unspecified; E11.69 Type 2 diabetes mellitus with other specified complication; M86.8X7 Other osteomyelitis, ankle and foot; E78.00 Pure hypercholesterolemia, unspecified; E11.42 Type 2 diabetes mellitus with diabetic polyneuropathy; E11.21 Type 2 diabetes mellitus with diabetic nephropathy; E11.319 Type 2 diabetes mellitus with unspecified diabetic retinopathy without macular edema; Z95.1 Presence of aortocoronary bypass graft; Z87.891 Personal history of nicotine dependence; Z79.4 Long term (current) use of insulin; Z99.2 Dependence on renal dialysis; Z94.0 Kidney transplant status; Y83.5 Amputation of limb(s) as the cause of abnormal reaction of the patient, or of later complication, without mention of misadventure at the time of the procedure
CPT/HCPCS: 96372; G0463; J0713; J3490

== ENCOUNTER → 2018-01-10 | Outpatient (CLI) | payer OTHER ==
[~2018-01-10] MED LIST changes: -CEFTAZIDIME PENTAHYDRATE 1 GM/VIAL IVP ONE; -LIDOCAINE HCL MPF 1% 5ML VIAL IM SCH; +LIDOCAINE HCL MPF 1% 5ML VIAL INJ SCH
[2018-01-10 14:54] VITALS: BP 166/92
== END | disposition home or self-care (01) ==
LOC: WHH 14:30
PROVIDERS: ATTEND Podiatrist Foot & Ankle Surgery
DX: T87.89 Other complications of amputation stump (principal); E11.621 Type 2 diabetes mellitus with foot ulcer; L97.521 Non-pressure chronic ulcer of other part of left foot limited to breakdown of skin; I25.10 Atherosclerotic heart disease of native coronary artery without angina pectoris; E11.52 Type 2 diabetes mellitus with diabetic peripheral angiopathy with gangrene; I96 Gangrene, not elsewhere classified; E11.22 Type 2 diabetes mellitus with diabetic chronic kidney disease; I12.0 Hypertensive chronic kidney disease with stage 5 chronic kidney disease or end stage renal disease; N18.6 End stage renal disease; E78.5 Hyperlipidemia, unspecified; E11.69 Type 2 diabetes mellitus with other specified complication; M86.8X7 Other osteomyelitis, ankle and foot; E78.00 Pure hypercholesterolemia, unspecified; E11.42 Type 2 diabetes mellitus with diabetic polyneuropathy; E11.21 Type 2 diabetes mellitus with diabetic nephropathy; E11.319 Type 2 diabetes mellitus with unspecified diabetic retinopathy without macular edema; Z95.1 Presence of aortocoronary bypass graft; Z87.891 Personal history of nicotine dependence; Z79.4 Long term (current) use of insulin; Z99.2 Dependence on renal dialysis; Z94.0 Kidney transplant status; Y83.5 Amputation of limb(s) as the cause of abnormal reaction of the patient, or of later complication, without mention of misadventure at the time of the procedure
CPT/HCPCS: 96372; G0463; J0713 ×2; J3490 ×2

== ENCOUNTER → 2018-01-11 | Outpatient (CLI) | payer OTHER ==
[~2018-01-11] MED LIST changes: -CEFTAZIDIME PENTAHYDRATE 1 GM/VIAL IM SCH; -LIDOCAINE HCL MPF 1% 5ML VIAL INJ SCH
[2018-01-11 11:16] VITALS: BP 138/68
== END | disposition home or self-care (01) ==
LOC: WHH 08:30
PROVIDERS: ATTEND Podiatrist Foot & Ankle Surgery
DX: T87.89 Other complications of amputation stump (principal); E11.621 Type 2 diabetes mellitus with foot ulcer; L97.521 Non-pressure chronic ulcer of other part of left foot limited to breakdown of skin; I25.10 Atherosclerotic heart disease of native coronary artery without angina pectoris; E11.52 Type 2 diabetes mellitus with diabetic peripheral angiopathy with gangrene; I96 Gangrene, not elsewhere classified; E11.22 Type 2 diabetes mellitus with diabetic chronic kidney disease; I12.0 Hypertensive chronic kidney disease with stage 5 chronic kidney disease or end stage renal disease; N18.6 End stage renal disease; E78.5 Hyperlipidemia, unspecified; E11.69 Type 2 diabetes mellitus with other specified complication; M86.8X7 Other osteomyelitis, ankle and foot; E78.00 Pure hypercholesterolemia, unspecified; E11.42 Type 2 diabetes mellitus with diabetic polyneuropathy; E11.21 Type 2 diabetes mellitus with diabetic nephropathy; E11.319 Type 2 diabetes mellitus with unspecified diabetic retinopathy without macular edema; Z95.1 Presence of aortocoronary bypass graft; Z87.891 Personal history of nicotine dependence; Z79.4 Long term (current) use of insulin; Z99.2 Dependence on renal dialysis; Z94.0 Kidney transplant status; Y83.5 Amputation of limb(s) as the cause of abnormal reaction of the patient, or of later complication, without mention of misadventure at the time of the procedure
CPT/HCPCS: 96372; G0463

== ENCOUNTER → 2018-01-16 | Outpatient (CLI) | payer OTHER ==
[2018-01-16 12:46] VITALS: BP_SYST 83
== END | disposition home or self-care (01) ==
LOC: WHH 10:00
PROVIDERS: ATTEND Podiatrist Foot & Ankle Surgery
DX: T87.89 Other complications of amputation stump (principal); E11.621 Type 2 diabetes mellitus with foot ulcer; L97.522 Non-pressure chronic ulcer of other part of left foot with fat layer exposed; I25.10 Atherosclerotic heart disease of native coronary artery without angina pectoris; E11.52 Type 2 diabetes mellitus with diabetic peripheral angiopathy with gangrene; I96 Gangrene, not elsewhere classified; E11.22 Type 2 diabetes mellitus with diabetic chronic kidney disease; I12.0 Hypertensive chronic kidney disease with stage 5 chronic kidney disease or end stage renal disease; N18.6 End stage renal disease; E78.5 Hyperlipidemia, unspecified; E11.69 Type 2 diabetes mellitus with other specified complication; M86.8X7 Other osteomyelitis, ankle and foot; E78.00 Pure hypercholesterolemia, unspecified; E11.42 Type 2 diabetes mellitus with diabetic polyneuropathy; E11.21 Type 2 diabetes mellitus with diabetic nephropathy; E11.319 Type 2 diabetes mellitus with unspecified diabetic retinopathy without macular edema; Z95.1 Presence of aortocoronary bypass graft; Z87.891 Personal history of nicotine dependence; Z79.4 Long term (current) use of insulin; Z99.2 Dependence on renal dialysis; Z94.0 Kidney transplant status; Y83.5 Amputation of limb(s) as the cause of abnormal reaction of the patient, or of later complication, without mention of misadventure at the time of the procedure
CPT/HCPCS: 11042; A6209

== ENCOUNTER → 2018-01-23 | Outpatient (CLI) | payer OTHER ==
[2018-01-23 13:30] VITALS: BP 131/78
== END | disposition home or self-care (01) ==
LOC: WHH 10:15
PROVIDERS: ATTEND Podiatrist Foot & Ankle Surgery
DX: T87.89 Other complications of amputation stump (principal); E11.621 Type 2 diabetes mellitus with foot ulcer; L97.522 Non-pressure chronic ulcer of other part of left foot with fat layer exposed; I25.10 Atherosclerotic heart disease of native coronary artery without angina pectoris; E11.52 Type 2 diabetes mellitus with diabetic peripheral angiopathy with gangrene; I96 Gangrene, not elsewhere classified; E11.22 Type 2 diabetes mellitus with diabetic chronic kidney disease; I12.0 Hypertensive chronic kidney disease with stage 5 chronic kidney disease or end stage renal disease; N18.6 End stage renal disease; E78.5 Hyperlipidemia, unspecified; E11.69 Type 2 diabetes mellitus with other specified complication; M86.8X7 Other osteomyelitis, ankle and foot; E78.00 Pure hypercholesterolemia, unspecified; E11.42 Type 2 diabetes mellitus with diabetic polyneuropathy; E11.21 Type 2 diabetes mellitus with diabetic nephropathy; E11.319 Type 2 diabetes mellitus with unspecified diabetic retinopathy without macular edema; Z95.1 Presence of aortocoronary bypass graft; Z87.891 Personal history of nicotine dependence; Z79.4 Long term (current) use of insulin; Z99.2 Dependence on renal dialysis; Z94.0 Kidney transplant status; Y83.5 Amputation of limb(s) as the cause of abnormal reaction of the patient, or of later complication, without mention of misadventure at the time of the procedure
CPT/HCPCS: 11042; A6209

== ENCOUNTER → 2018-02-13 | Outpatient (CLI) | payer OTHER ==
[2018-02-13 13:46] VITALS: BP 133/82
== END | disposition home or self-care (01) ==
LOC: WHH 10:05
PROVIDERS: ATTEND Podiatrist Foot & Ankle Surgery
DX: T87.89 Other complications of amputation stump (principal); E11.621 Type 2 diabetes mellitus with foot ulcer; L97.521 Non-pressure chronic ulcer of other part of left foot limited to breakdown of skin; E11.21 Type 2 diabetes mellitus with diabetic nephropathy; E11.42 Type 2 diabetes mellitus with diabetic polyneuropathy; E11.52 Type 2 diabetes mellitus with diabetic peripheral angiopathy with gangrene; I96 Gangrene, not elsewhere classified; E11.69 Type 2 diabetes mellitus with other specified complication; M86.8X7 Other osteomyelitis, ankle and foot; E11.22 Type 2 diabetes mellitus with diabetic chronic kidney disease; I12.0 Hypertensive chronic kidney disease with stage 5 chronic kidney disease or end stage renal disease; N18.6 End stage renal disease; I25.10 Atherosclerotic heart disease of native coronary artery without angina pectoris; E78.00 Pure hypercholesterolemia, unspecified; E78.5 Hyperlipidemia, unspecified; Z79.4 Long term (current) use of insulin; Z94.0 Kidney transplant status; Z95.1 Presence of aortocoronary bypass graft; Z99.2 Dependence on renal dialysis; Z87.891 Personal history of nicotine dependence; Y83.5 Amputation of limb(s) as the cause of abnormal reaction of the patient, or of later complication, without mention of misadventure at the time of the procedure
CPT/HCPCS: 97597

== ENCOUNTER 2018-02-20 10:00 | Outpatient (CLI) | payer OTHER ==
[2018-02-20 11:22] VITALS: BP 118/62
== END 2018-02-20 13:03 | disposition home or self-care (01) ==
LOC: WHH 10:00
PROVIDERS: ATTEND Podiatrist Foot & Ankle Surgery
DX: T87.89 Other complications of amputation stump (principal); E11.621 Type 2 diabetes mellitus with foot ulcer; L97.528 Non-pressure chronic ulcer of other part of left foot with other specified severity; E11.21 Type 2 diabetes mellitus with diabetic nephropathy; E11.42 Type 2 diabetes mellitus with diabetic polyneuropathy; E11.52 Type 2 diabetes mellitus with diabetic peripheral angiopathy with gangrene; I96 Gangrene, not elsewhere classified; E11.69 Type 2 diabetes mellitus with other specified complication; M86.8X7 Other osteomyelitis, ankle and foot; E11.22 Type 2 diabetes mellitus with diabetic chronic kidney disease; I12.0 Hypertensive chronic kidney disease with stage 5 chronic kidney disease or end stage renal disease; N18.6 End stage renal disease; I25.10 Atherosclerotic heart disease of native coronary artery without angina pectoris; E78.00 Pure hypercholesterolemia, unspecified; E78.5 Hyperlipidemia, unspecified; E11.319 Type 2 diabetes mellitus with unspecified diabetic retinopathy without macular edema; Z79.4 Long term (current) use of insulin; Z94.0 Kidney transplant status; Z95.1 Presence of aortocoronary bypass graft; Z99.2 Dependence on renal dialysis; Z87.891 Personal history of nicotine dependence; Y83.5 Amputation of limb(s) as the cause of abnormal reaction of the patient, or of later complication, without mention of misadventure at the time of the procedure
CPT/HCPCS: G0463

== ENCOUNTER → 2018-03-21 | Outpatient (CLI) | payer OTHER ==
[~2018-03-21] MED LIST changes: +LIDOCAINE 1%-EPI 1:100,000 20 ML VIAL IJ ONE
[2018-03-21 15:29] VITALS: BP 130/76
== END | disposition home or self-care (01) ==
LOC: WHH 10:46
PROVIDERS: ATTEND Surgery
DX: E11.622 Type 2 diabetes mellitus with other skin ulcer (principal); L98.491 Non-pressure chronic ulcer of skin of other sites limited to breakdown of skin; L02.31 Cutaneous abscess of buttock; E11.22 Type 2 diabetes mellitus with diabetic chronic kidney disease; I12.0 Hypertensive chronic kidney disease with stage 5 chronic kidney disease or end stage renal disease; N18.6 End stage renal disease; E11.52 Type 2 diabetes mellitus with diabetic peripheral angiopathy with gangrene; I96 Gangrene, not elsewhere classified; E11.21 Type 2 diabetes mellitus with diabetic nephropathy; E11.40 Type 2 diabetes mellitus with diabetic neuropathy, unspecified; E78.00 Pure hypercholesterolemia, unspecified; E11.69 Type 2 diabetes mellitus with other specified complication; M86.8X7 Other osteomyelitis, ankle and foot; I25.10 Atherosclerotic heart disease of native coronary artery without angina pectoris; E78.5 Hyperlipidemia, unspecified; Z94.0 Kidney transplant status; Z79.4 Long term (current) use of insulin; Z89.432 Acquired absence of left foot
CPT/HCPCS: 10060; A4450; J3490

== ENCOUNTER → 2018-03-28 | Outpatient (CLI) | payer OTHER ==
[~2018-03-28] MED LIST changes: -LIDOCAINE 1%-EPI 1:100,000 20 ML VIAL IJ ONE; +LIDOCAINE HCL 2% JELLY 5 ML TP ONE
[2018-03-28 12:23] VITALS: BP 121/82
== END | disposition home or self-care (01) ==
LOC: WHH 08:15
PROVIDERS: ATTEND Surgery
DX: E11.622 Type 2 diabetes mellitus with other skin ulcer (principal); L98.491 Non-pressure chronic ulcer of skin of other sites limited to breakdown of skin; L02.31 Cutaneous abscess of buttock; E11.22 Type 2 diabetes mellitus with diabetic chronic kidney disease; I12.0 Hypertensive chronic kidney disease with stage 5 chronic kidney disease or end stage renal disease; N18.6 End stage renal disease; E11.52 Type 2 diabetes mellitus with diabetic peripheral angiopathy with gangrene; I96 Gangrene, not elsewhere classified; E11.69 Type 2 diabetes mellitus with other specified complication; M86.8X7 Other osteomyelitis, ankle and foot; E11.21 Type 2 diabetes mellitus with diabetic nephropathy; E11.40 Type 2 diabetes mellitus with diabetic neuropathy, unspecified; I25.10 Atherosclerotic heart disease of native coronary artery without angina pectoris; E78.5 Hyperlipidemia, unspecified; E78.00 Pure hypercholesterolemia, unspecified; Z94.0 Kidney transplant status; Z79.4 Long term (current) use of insulin; Z99.2 Dependence on renal dialysis; Z95.1 Presence of aortocoronary bypass graft; Z89.432 Acquired absence of left foot
CPT/HCPCS: G0463

== ENCOUNTER → 2018-04-04 | Outpatient (CLI) | payer OTHER ==
[~2018-04-04] MED LIST changes: -LIDOCAINE HCL 2% JELLY 5 ML TP ONE
[2018-04-04 13:41] VITALS: BP 141/91
== END | disposition home or self-care (01) ==
LOC: WHH 10:40
PROVIDERS: ATTEND Surgery
DX: T81.89XD Other complications of procedures, not elsewhere classified, subsequent encounter (principal); E11.622 Type 2 diabetes mellitus with other skin ulcer; L98.491 Non-pressure chronic ulcer of skin of other sites limited to breakdown of skin; L98.411 Non-pressure chronic ulcer of buttock limited to breakdown of skin; L02.31 Cutaneous abscess of buttock; E11.22 Type 2 diabetes mellitus with diabetic chronic kidney disease; I12.0 Hypertensive chronic kidney disease with stage 5 chronic kidney disease or end stage renal disease; N18.6 End stage renal disease; E11.21 Type 2 diabetes mellitus with diabetic nephropathy; E11.40 Type 2 diabetes mellitus with diabetic neuropathy, unspecified; E11.52 Type 2 diabetes mellitus with diabetic peripheral angiopathy with gangrene; I96 Gangrene, not elsewhere classified; E11.319 Type 2 diabetes mellitus with unspecified diabetic retinopathy without macular edema; E11.69 Type 2 diabetes mellitus with other specified complication; M86.8X7 Other osteomyelitis, ankle and foot; I25.10 Atherosclerotic heart disease of native coronary artery without angina pectoris; E78.5 Hyperlipidemia, unspecified; E16.9 Disorder of pancreatic internal secretion, unspecified; E78.00 Pure hypercholesterolemia, unspecified; Z99.2 Dependence on renal dialysis; Z89.432 Acquired absence of left foot; Z79.4 Long term (current) use of insulin; Z95.1 Presence of aortocoronary bypass graft; Z87.891 Personal history of nicotine dependence; Y83.8 Other surgical procedures as the cause of abnormal reaction of the patient, or of later complication, without mention of misadventure at the time of the procedure
CPT/HCPCS: A6021; A6402; G0463

== ENCOUNTER → 2018-04-18 | Outpatient (CLI) | payer OTHER ==
[2018-04-18 10:19] VITALS: BP 92/48
== END | disposition home or self-care (01) ==
LOC: WHH 09:00
PROVIDERS: ATTEND Surgery
DX: E11.622 Type 2 diabetes mellitus with other skin ulcer (principal); L98.411 Non-pressure chronic ulcer of buttock limited to breakdown of skin; S60.416A Abrasion of right little finger, initial encounter; E11.22 Type 2 diabetes mellitus with diabetic chronic kidney disease; I12.0 Hypertensive chronic kidney disease with stage 5 chronic kidney disease or end stage renal disease; N18.6 End stage renal disease; I25.10 Atherosclerotic heart disease of native coronary artery without angina pectoris; E11.21 Type 2 diabetes mellitus with diabetic nephropathy; E11.40 Type 2 diabetes mellitus with diabetic neuropathy, unspecified; E11.52 Type 2 diabetes mellitus with diabetic peripheral angiopathy with gangrene; I96 Gangrene, not elsewhere classified; E11.319 Type 2 diabetes mellitus with unspecified diabetic retinopathy without macular edema; E11.69 Type 2 diabetes mellitus with other specified complication; E66.2 Morbid (severe) obesity with alveolar hypoventilation; M86.8X7 Other osteomyelitis, ankle and foot; E16.9 Disorder of pancreatic internal secretion, unspecified; Y99.8 Other external cause status; E78.5 Hyperlipidemia, unspecified; Z79.4 Long term (current) use of insulin; Z87.891 Personal history of nicotine dependence; Z95.1 Presence of aortocoronary bypass graft; Z89.432 Acquired absence of left foot; Z94.0 Kidney transplant status; X58.XXXA Exposure to other specified factors, initial encounter; Y93.89 Activity, other specified; Y92.89 Other specified places as the place of occurrence of the external cause
CPT/HCPCS: G0463

== ENCOUNTER 2018-07-29 09:00 | Outpatient (CLI) | payer OTHER ==
[2018-07-29 13:11] VITALS: BP 120/66
== END 2018-07-29 14:42 | disposition designated cancer center or children's hospital (05) ==
LOC: WHH 09:00
PROVIDERS: ATTEND Family Medicine
DX: T87.89 Other complications of amputation stump (principal); L84 Corns and callosities; E11.22 Type 2 diabetes mellitus with diabetic chronic kidney disease; I12.0 Hypertensive chronic kidney disease with stage 5 chronic kidney disease or end stage renal disease; N18.6 End stage renal disease; I25.10 Atherosclerotic heart disease of native coronary artery without angina pectoris; E11.21 Type 2 diabetes mellitus with diabetic nephropathy; E11.40 Type 2 diabetes mellitus with diabetic neuropathy, unspecified; E11.52 Type 2 diabetes mellitus with diabetic peripheral angiopathy with gangrene; I96 Gangrene, not elsewhere classified; E11.319 Type 2 diabetes mellitus with unspecified diabetic retinopathy without macular edema; E11.69 Type 2 diabetes mellitus with other specified complication; E66.2 Morbid (severe) obesity with alveolar hypoventilation; M86.8X7 Other osteomyelitis, ankle and foot; E16.9 Disorder of pancreatic internal secretion, unspecified; E78.5 Hyperlipidemia, unspecified; Z79.4 Long term (current) use of insulin; Z87.891 Personal history of nicotine dependence; Z95.1 Presence of aortocoronary bypass graft; Z89.432 Acquired absence of left foot; Z94.0 Kidney transplant status; Z89.511 Acquired absence of right leg below knee; Y83.5 Amputation of limb(s) as the cause of abnormal reaction of the patient, or of later complication, without mention of misadventure at the time of the procedure
CPT/HCPCS: 97597; G0463

== ENCOUNTER → 2018-09-04 | Outpatient (CLI) | payer OTHER ==
[2018-09-04 13:12] VITALS: BP 144/85
== END | disposition home or self-care (01) ==
LOC: WHH 09:45
PROVIDERS: ATTEND Podiatrist Foot & Ankle Surgery
DX: T87.89 Other complications of amputation stump (principal); E11.621 Type 2 diabetes mellitus with foot ulcer; L97.521 Non-pressure chronic ulcer of other part of left foot limited to breakdown of skin; E11.22 Type 2 diabetes mellitus with diabetic chronic kidney disease; I12.0 Hypertensive chronic kidney disease with stage 5 chronic kidney disease or end stage renal disease; N18.6 End stage renal disease; E11.21 Type 2 diabetes mellitus with diabetic nephropathy; E11.40 Type 2 diabetes mellitus with diabetic neuropathy, unspecified; E11.52 Type 2 diabetes mellitus with diabetic peripheral angiopathy with gangrene; I96 Gangrene, not elsewhere classified; E11.319 Type 2 diabetes mellitus with unspecified diabetic retinopathy without macular edema; E11.69 Type 2 diabetes mellitus with other specified complication; M86.8X7 Other osteomyelitis, ankle and foot; I25.10 Atherosclerotic heart disease of native coronary artery without angina pectoris; E78.5 Hyperlipidemia, unspecified; E16.9 Disorder of pancreatic internal secretion, unspecified; E78.00 Pure hypercholesterolemia, unspecified; Z99.2 Dependence on renal dialysis; Z89.432 Acquired absence of left foot; Z79.4 Long term (current) use of insulin; Z95.1 Presence of aortocoronary bypass graft; Z87.891 Personal history of nicotine dependence; Y83.8 Other surgical procedures as the cause of abnormal reaction of the patient, or of later complication, without mention of misadventure at the time of the procedure
CPT/HCPCS: 97597

== ENCOUNTER 2018-10-09 09:15 | Outpatient (CLI) | payer OTHER ==
[2018-10-09 13:39] VITALS: BP 106/66
== END 2018-10-09 16:10 | disposition home or self-care (01) ==
LOC: WHH 09:15
PROVIDERS: ATTEND Podiatrist Foot & Ankle Surgery
DX: T87.89 Other complications of amputation stump (principal); E11.621 Type 2 diabetes mellitus with foot ulcer; L97.511 Non-pressure chronic ulcer of other part of right foot limited to breakdown of skin; E11.40 Type 2 diabetes mellitus with diabetic neuropathy, unspecified; E11.52 Type 2 diabetes mellitus with diabetic peripheral angiopathy with gangrene; I96 Gangrene, not elsewhere classified; E11.319 Type 2 diabetes mellitus with unspecified diabetic retinopathy without macular edema; E11.22 Type 2 diabetes mellitus with diabetic chronic kidney disease; I12.0 Hypertensive chronic kidney disease with stage 5 chronic kidney disease or end stage renal disease; N18.6 End stage renal disease; E11.69 Type 2 diabetes mellitus with other specified complication; M86.8X7 Other osteomyelitis, ankle and foot; I25.10 Atherosclerotic heart disease of native coronary artery without angina pectoris; E78.5 Hyperlipidemia, unspecified; E78.00 Pure hypercholesterolemia, unspecified; Z95.1 Presence of aortocoronary bypass graft; Z87.891 Personal history of nicotine dependence; Z79.4 Long term (current) use of insulin; Z89.432 Acquired absence of left foot; Y83.5 Amputation of limb(s) as the cause of abnormal reaction of the patient, or of later complication, without mention of misadventure at the time of the procedure
CPT/HCPCS: 93926; 97597

== ENCOUNTER → 2018-10-09 | Outpatient (CLI) | payer OTHER | END | disposition home or self-care (01) | LOC: SHCH 12:50 | PROVIDERS: ATTEND Internal Medicine Cardiovascular Disease | DX: I73.9 Peripheral vascular disease, unspecified (principal) | CPT/HCPCS: 93926 ==

== ENCOUNTER → 2018-12-25 | Outpatient (CLI) | payer OTHER | END | disposition home or self-care (01) | LOC: WHH 08:45 | PROVIDERS: ATTEND Podiatrist Foot & Ankle Surgery | DX: T87.89 Other complications of amputation stump (principal); E11.621 Type 2 diabetes mellitus with foot ulcer; L97.522 Non-pressure chronic ulcer of other part of left foot with fat layer exposed; E11.22 Type 2 diabetes mellitus with diabetic chronic kidney disease; I12.0 Hypertensive chronic kidney disease with stage 5 chronic kidney disease or end stage renal disease; N18.6 End stage renal disease; E11.21 Type 2 diabetes mellitus with diabetic nephropathy; E11.40 Type 2 diabetes mellitus with diabetic neuropathy, unspecified; E11.52 Type 2 diabetes mellitus with diabetic peripheral angiopathy with gangrene; I96 Gangrene, not elsewhere classified; E11.319 Type 2 diabetes mellitus with unspecified diabetic retinopathy without macular edema; E11.39 Type 2 diabetes mellitus with other diabetic ophthalmic complication; M86.8X7 Other osteomyelitis, ankle and foot; I25.10 Atherosclerotic heart disease of native coronary artery without angina pectoris; E78.5 Hyperlipidemia, unspecified; E16.9 Disorder of pancreatic internal secretion, unspecified; E78.00 Pure hypercholesterolemia, unspecified; Z99.2 Dependence on renal dialysis; Z89.432 Acquired absence of left foot; Z79.4 Long term (current) use of insulin; Z94.0 Kidney transplant status; Z95.1 Presence of aortocoronary bypass graft; Z87.891 Personal history of nicotine dependence; Y83.5 Amputation of limb(s) as the cause of abnormal reaction of the patient, or of later complication, without mention of misadventure at the time of the procedure | CPT/HCPCS: 11042; A6207 ==

== ENCOUNTER → 2019-01-01 | Outpatient (CLI) | payer OTHER ==
[2019-01-01 12:40] VITALS: BP 105/54
== END | disposition home or self-care (01) ==
LOC: WHH 08:30
PROVIDERS: ATTEND Podiatrist Foot & Ankle Surgery
DX: T87.89 Other complications of amputation stump (principal); E11.621 Type 2 diabetes mellitus with foot ulcer; L97.522 Non-pressure chronic ulcer of other part of left foot with fat layer exposed; E11.22 Type 2 diabetes mellitus with diabetic chronic kidney disease; I12.0 Hypertensive chronic kidney disease with stage 5 chronic kidney disease or end stage renal disease; N18.6 End stage renal disease; E11.21 Type 2 diabetes mellitus with diabetic nephropathy; E11.40 Type 2 diabetes mellitus with diabetic neuropathy, unspecified; E11.52 Type 2 diabetes mellitus with diabetic peripheral angiopathy with gangrene; I96 Gangrene, not elsewhere classified; E11.319 Type 2 diabetes mellitus with unspecified diabetic retinopathy without macular edema; E11.39 Type 2 diabetes mellitus with other diabetic ophthalmic complication; M86.8X7 Other osteomyelitis, ankle and foot; I25.10 Atherosclerotic heart disease of native coronary artery without angina pectoris; E78.5 Hyperlipidemia, unspecified; E16.9 Disorder of pancreatic internal secretion, unspecified; E78.00 Pure hypercholesterolemia, unspecified; Z99.2 Dependence on renal dialysis; Z89.432 Acquired absence of left foot; Z79.4 Long term (current) use of insulin; Z94.0 Kidney transplant status; Z95.1 Presence of aortocoronary bypass graft; Z87.891 Personal history of nicotine dependence; Y83.5 Amputation of limb(s) as the cause of abnormal reaction of the patient, or of later complication, without mention of misadventure at the time of the procedure
CPT/HCPCS: 11042; A6207

== ENCOUNTER → 2019-01-09 | Outpatient (CLI) | payer OTHER ==
[2019-01-09 14:33] VITALS: BP 106/61
== END | disposition home or self-care (01) ==
LOC: WHH 14:15
PROVIDERS: ATTEND Podiatrist Foot & Ankle Surgery
DX: T87.89 Other complications of amputation stump (principal); E11.621 Type 2 diabetes mellitus with foot ulcer; L97.522 Non-pressure chronic ulcer of other part of left foot with fat layer exposed; I12.0 Hypertensive chronic kidney disease with stage 5 chronic kidney disease or end stage renal disease; N18.6 End stage renal disease; E11.21 Type 2 diabetes mellitus with diabetic nephropathy; E11.40 Type 2 diabetes mellitus with diabetic neuropathy, unspecified; E11.52 Type 2 diabetes mellitus with diabetic peripheral angiopathy with gangrene; I96 Gangrene, not elsewhere classified; E11.319 Type 2 diabetes mellitus with unspecified diabetic retinopathy without macular edema; E11.39 Type 2 diabetes mellitus with other diabetic ophthalmic complication; M86.8X7 Other osteomyelitis, ankle and foot; I25.10 Atherosclerotic heart disease of native coronary artery without angina pectoris; E78.5 Hyperlipidemia, unspecified; E16.9 Disorder of pancreatic internal secretion, unspecified; E78.00 Pure hypercholesterolemia, unspecified; Z99.2 Dependence on renal dialysis; Z89.432 Acquired absence of left foot; Z79.4 Long term (current) use of insulin; Z94.0 Kidney transplant status; Z95.1 Presence of aortocoronary bypass graft; Z87.891 Personal history of nicotine dependence; Y83.5 Amputation of limb(s) as the cause of abnormal reaction of the patient, or of later complication, without mention of misadventure at the time of the procedure
CPT/HCPCS: A6207; G0463

== ENCOUNTER 2019-01-15 09:15 | Outpatient (CLI) | payer OTHER ==
[2019-01-15 12:09] VITALS: BP 143/64
== END 2019-01-15 13:32 | disposition home or self-care (01) ==
LOC: WHH 09:15
PROVIDERS: ATTEND Podiatrist Foot & Ankle Surgery
DX: T87.89 Other complications of amputation stump (principal); E11.621 Type 2 diabetes mellitus with foot ulcer; L97.521 Non-pressure chronic ulcer of other part of left foot limited to breakdown of skin; I12.0 Hypertensive chronic kidney disease with stage 5 chronic kidney disease or end stage renal disease; N18.6 End stage renal disease; E11.21 Type 2 diabetes mellitus with diabetic nephropathy; E11.40 Type 2 diabetes mellitus with diabetic neuropathy, unspecified; E11.52 Type 2 diabetes mellitus with diabetic peripheral angiopathy with gangrene; I96 Gangrene, not elsewhere classified; E11.319 Type 2 diabetes mellitus with unspecified diabetic retinopathy without macular edema; E11.39 Type 2 diabetes mellitus with other diabetic ophthalmic complication; M86.8X7 Other osteomyelitis, ankle and foot; I25.10 Atherosclerotic heart disease of native coronary artery without angina pectoris; E78.5 Hyperlipidemia, unspecified; E16.9 Disorder of pancreatic internal secretion, unspecified; E78.00 Pure hypercholesterolemia, unspecified; Z99.2 Dependence on renal dialysis; Z89.432 Acquired absence of left foot; Z79.4 Long term (current) use of insulin; Z94.0 Kidney transplant status; Z95.1 Presence of aortocoronary bypass graft; Z87.891 Personal history of nicotine dependence; Y83.5 Amputation of limb(s) as the cause of abnormal reaction of the patient, or of later complication, without mention of misadventure at the time of the procedure
CPT/HCPCS: G0463

== ENCOUNTER 2019-04-23 08:50 | Outpatient (CLI) | payer OTHER ==
[2019-04-23 16:48] VITALS: BP 114/68
== END 2019-04-23 09:30 | disposition home or self-care (01) ==
LOC: WHH 08:50
PROVIDERS: ATTEND Podiatrist Foot & Ankle Surgery
DX: T87.89 Other complications of amputation stump (principal); L84 Corns and callosities; E11.22 Type 2 diabetes mellitus with diabetic chronic kidney disease; I12.0 Hypertensive chronic kidney disease with stage 5 chronic kidney disease or end stage renal disease; N18.6 End stage renal disease; E11.69 Type 2 diabetes mellitus with other specified complication; M86.8X7 Other osteomyelitis, ankle and foot; E11.40 Type 2 diabetes mellitus with diabetic neuropathy, unspecified; E11.39 Type 2 diabetes mellitus with other diabetic ophthalmic complication; E11.319 Type 2 diabetes mellitus with unspecified diabetic retinopathy without macular edema; E11.21 Type 2 diabetes mellitus with diabetic nephropathy; E78.5 Hyperlipidemia, unspecified; E78.00 Pure hypercholesterolemia, unspecified; I25.10 Atherosclerotic heart disease of native coronary artery without angina pectoris; Z99.2 Dependence on renal dialysis; E16.9 Disorder of pancreatic internal secretion, unspecified; Z94.0 Kidney transplant status; Z79.4 Long term (current) use of insulin; Z89.432 Acquired absence of left foot; Z87.891 Personal history of nicotine dependence; Z95.1 Presence of aortocoronary bypass graft; Y83.5 Amputation of limb(s) as the cause of abnormal reaction of the patient, or of later complication, without mention of misadventure at the time of the procedure
CPT/HCPCS: 97597

== ENCOUNTER → 2020-06-08 | Outpatient (CLI) | payer OTHER, MEDICARE ==
[~2020-06-08] VITALS: Ht 167.6 cm; Wt 87.1 kg
[~2020-06-08] MED LIST changes: +REGADENOSON 0.4 MG/5 ML PF SYG IVP SCH
== END | disposition home or self-care (01) ==
LOC: SHCH 08:33
PROVIDERS: ATTEND Internal Medicine Cardiovascular Disease
DX: R07.9 Chest pain, unspecified (principal); R06.09 Other forms of dyspnea
CPT/HCPCS: 78452; 93017; 96374; A9500 ×2

== ENCOUNTER → 2020-07-28 | Outpatient (CLI) | payer OTHER, MEDICARE ==
[~2020-07-28] MED LIST changes: -DOXY100C2 PO; +DOXY100C5 PO; -REGADENOSON 0.4 MG/5 ML PF SYG IVP SCH
== END | disposition home or self-care (01) ==
LOC: SHCH 13:34
PROVIDERS: ATTEND Internal Medicine Cardiovascular Disease
DX: I87.2 Venous insufficiency (chronic) (peripheral) (principal)
CPT/HCPCS: 93971

== ENCOUNTER → 2021-12-02 | Outpatient (CLI) | payer OTHER, MEDICARE | END | disposition home or self-care (01) | LOC: SHCH 08:17 | PROVIDERS: ATTEND Internal Medicine Cardiovascular Disease | DX: I08.0 Rheumatic disorders of both mitral and aortic valves (principal); I11.0 Hypertensive heart disease with heart failure; I50.20 Unspecified systolic (congestive) heart failure; E11.9 Type 2 diabetes mellitus without complications; E78.5 Hyperlipidemia, unspecified; Z95.1 Presence of aortocoronary bypass graft | CPT/HCPCS: 93306 ==

== ENCOUNTER → 2022-11-15 | Outpatient (CLI) | payer OTHER, MEDICARE ==
[~2022-11-15] MED LIST changes: -INSU100I21 SQ; +INSU100I22 SQ
== END | disposition home or self-care (01) ==
LOC: WHH 08:49
PROVIDERS: ATTEND Podiatrist Foot & Ankle Surgery
DX: T87.89 Other complications of amputation stump (principal); E11.621 Type 2 diabetes mellitus with foot ulcer; L97.522 Non-pressure chronic ulcer of other part of left foot with fat layer exposed; E11.51 Type 2 diabetes mellitus with diabetic peripheral angiopathy without gangrene; E11.40 Type 2 diabetes mellitus with diabetic neuropathy, unspecified; E11.22 Type 2 diabetes mellitus with diabetic chronic kidney disease; I12.9 Hypertensive chronic kidney disease with stage 1 through stage 4 chronic kidney disease, or unspecified chronic kidney disease; N18.9 Chronic kidney disease, unspecified; E11.36 Type 2 diabetes mellitus with diabetic cataract; E11.39 Type 2 diabetes mellitus with other diabetic ophthalmic complication; H42 Glaucoma in diseases classified elsewhere; Z79.82 Long term (current) use of aspirin; Z79.4 Long term (current) use of insulin; Z79.899 Other long term (current) drug therapy; Y83.8 Other surgical procedures as the cause of abnormal reaction of the patient, or of later complication, without mention of misadventure at the time of the procedure
CPT/HCPCS: G0463

== ENCOUNTER → 2022-11-15 | Outpatient (CLI) | payer OTHER, MEDICARE | END | disposition home or self-care (01) | LOC: SHCH 11:58 | PROVIDERS: ATTEND Internal Medicine Cardiovascular Disease | DX: I87.2 Venous insufficiency (chronic) (peripheral) (principal); I87.1 Compression of vein; I73.9 Peripheral vascular disease, unspecified; Z89.511 Acquired absence of right leg below knee | CPT/HCPCS: 93925; 93970 ==

== ENCOUNTER → 2024-04-08 | Outpatient (CLI) | payer OTHER, MEDICARE ==
--- NOTE | 2024-04-09 08:42 | HMCSR ---
APPROVED REPORT Laterality: Bilateral Indications PVD // RT. 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 (R) 112.3cm/sec, Biphasic, Prof Fem Art. (L) 107.7cm/sec, Monophasic, Fem Art Prox. (R) 62.8cm/sec, Biphasic, Fem Art Prox. (L) 80.8cm/sec, Biphasic, Fem Art Mid. (R) 69.3cm/sec, Biphasic, Fem Art Mid. (L) 76.7cm/sec, Monophasic, Fem Art Dist (R) 38.1cm/sec, Biphasic, Fem Art Dist. (L) 57.1cm/sec, Monophasic, Pop Art(AK) (R) 83.2cm/sec, Biphasic, Pop Art (AK) (L) 50.6cm/sec, Monophasic, Pop Art (Fossa)(R) 38.7cm/sec, Biphasic, Pop Art (Fossa) (L) 122.9cm/sec, Monophasic, Pop Art(BK) (R) 24.1cm/sec, Monophasic, Pop Art (BK) (L) 60.4cm/sec, Monophasic, MENTALLY RETARDED TEACHER Prox. (L) 44.0cm/sec, Monophasic, MENTALLY RETARDED TEACHER Mid. (L) 69.1cm/sec, Monophasic, MENTALLY RETARDED TEACHER Dist. (L) 47.1cm/sec, Monophasic, Per Art Prox. (L) cm/sec, Not Seen Per Art Mid. (L) cm/sec, Not Seen Per Art Dist. (L) 61.0cm/sec, Monophasic, GABE Prox. (L) 62.1cm/sec, Monophasic, GABE Mid. (L) 35.9cm/sec, Monophasic, GABE Dist. (L) 52.5cm/sec, Monophasic, Technologist Impression Diffuse atherosclerosis throughout the bilateral lower extremities. Right Below Knee Amputation. LT. Christ[place] A. Prox to Mid not seen. Conclusion Severe diffuse peripheral arterial disease of left lower extremity below left common femoral artery Conclusion Severe diffuse peripheral arterial disease of left lower extremity below left common femoral artery
== END | disposition home or self-care (01) ==
LOC: SHCH 08:15
PROVIDERS: ATTEND Internal Medicine Cardiovascular Disease
DX: I73.9 Peripheral vascular disease, unspecified (principal); Z89.511 Acquired absence of right leg below knee
CPT/HCPCS: 93925

== ENCOUNTER → 2024-05-01 | Outpatient (CLI) | payer OTHER, MEDICARE ==
--- NOTE | 2024-05-01 15:04 | HMCIMG ---
RIGHT HAND RADIOGRAPHS - 3 VIEWS INDICATION: Index finger cellulitis COMPARISON: None FINDINGS: AP, lateral, and oblique views. Amputation of the third ray to the level of the third proximal phalangeal base. No evidence for periosteal reaction, cortical erosive changes, or any abnormal subperiosteal bone resorption. Scaphoid bone is intact. Carpal alignment and ulnar variance is within normal limits. Severe arterial wall calcific plaque along the distal right forearm, right wrist, and along all of the right hand. IMPRESSION: No evidence for ostial myelitis.
== END | disposition home or self-care (01) ==
LOC: WHH 08:16
PROVIDERS: ATTEND Family Medicine
DX: L03.011 Cellulitis of right finger (principal); E11.22 Type 2 diabetes mellitus with diabetic chronic kidney disease; I12.9 Hypertensive chronic kidney disease with stage 1 through stage 4 chronic kidney disease, or unspecified chronic kidney disease; N18.9 Chronic kidney disease, unspecified; E11.51 Type 2 diabetes mellitus with diabetic peripheral angiopathy without gangrene; E11.40 Type 2 diabetes mellitus with diabetic neuropathy, unspecified; E11.39 Type 2 diabetes mellitus with other diabetic ophthalmic complication; H40.89 Other specified glaucoma; Z89.111 Acquired absence of right hand; Z98.49 Cataract extraction status, unspecified eye; Z89.611 Acquired absence of right leg above knee; Z79.899 Other long term (current) drug therapy
CPT/HCPCS: 73120; G0463; A4450

== ENCOUNTER → 2024-05-05 | Outpatient (CLI) | payer OTHER, MEDICARE | END | disposition home or self-care (01) | LOC: WHH 08:31 | PROVIDERS: ATTEND Family Medicine | DX: L03.011 Cellulitis of right finger (principal); E11.22 Type 2 diabetes mellitus with diabetic chronic kidney disease; I12.9 Hypertensive chronic kidney disease with stage 1 through stage 4 chronic kidney disease, or unspecified chronic kidney disease; N18.9 Chronic kidney disease, unspecified; E11.51 Type 2 diabetes mellitus with diabetic peripheral angiopathy without gangrene; E11.40 Type 2 diabetes mellitus with diabetic neuropathy, unspecified; E11.39 Type 2 diabetes mellitus with other diabetic ophthalmic complication; H40.89 Other specified glaucoma; Z89.111 Acquired absence of right hand; Z98.49 Cataract extraction status, unspecified eye; Z89.611 Acquired absence of right leg above knee; Z79.899 Other long term (current) drug therapy | CPT/HCPCS: G0463 ==

== ENCOUNTER → 2024-05-12 | Outpatient (CLI) | payer OTHER, MEDICARE ==
[~2024-05-12] MED LIST changes: +LIDOCAINE HCL 4% LTA SOL 4 ML VIAL TP ONE
== END | disposition home or self-care (01) ==
LOC: WHH 08:36
PROVIDERS: ATTEND Family Medicine
DX: L03.011 Cellulitis of right finger (principal); E11.40 Type 2 diabetes mellitus with diabetic neuropathy, unspecified; E11.51 Type 2 diabetes mellitus with diabetic peripheral angiopathy without gangrene; E11.22 Type 2 diabetes mellitus with diabetic chronic kidney disease; I12.9 Hypertensive chronic kidney disease with stage 1 through stage 4 chronic kidney disease, or unspecified chronic kidney disease; N18.9 Chronic kidney disease, unspecified; E11.39 Type 2 diabetes mellitus with other diabetic ophthalmic complication; H40.89 Other specified glaucoma; Z89.111 Acquired absence of right hand; Z98.49 Cataract extraction status, unspecified eye; Z89.611 Acquired absence of right leg above knee; Z79.899 Other long term (current) drug therapy
CPT/HCPCS: G0463; A4450

== ENCOUNTER → 2024-05-13 | Outpatient (CLI) | payer OTHER, MEDICARE ==
[~2024-05-13] MED LIST changes: -LIDOCAINE HCL 4% LTA SOL 4 ML VIAL TP ONE
--- NOTE | 2024-05-13 14:07 | HMCIMG ---
MR HAND RIGHT WO HISTORY: Osteomyelitis of second digit COMPARISON: 01/09/2018 TECHNIQUE: MRI of the right hand was performed utilizing multiple pulse sequences in axial, coronal and sagittal planes. Patient was not given contrast through intravenous route. FINDINGS: No abnormal signal intensity is seen of the visualized bony structure to suggest osteomyelitis. Specific attention is given to the second digit. No evidence of fracture or dislocation is seen. IMPRESSION: 1. No definite MR evidence of osteomyelitis is seen.
== END | disposition home or self-care (01) ==
LOC: RAH 12:39
PROVIDERS: ATTEND Family Medicine
DX: L03.011 Cellulitis of right finger (principal)
CPT/HCPCS: 73218

== ENCOUNTER → 2024-05-19 | Outpatient (CLI) | payer OTHER, MEDICARE | END | disposition home or self-care (01) | LOC: WHH 08:48 | PROVIDERS: ATTEND Family Medicine | DX: L03.011 Cellulitis of right finger (principal); E11.40 Type 2 diabetes mellitus with diabetic neuropathy, unspecified; E11.51 Type 2 diabetes mellitus with diabetic peripheral angiopathy without gangrene; E11.22 Type 2 diabetes mellitus with diabetic chronic kidney disease; I12.9 Hypertensive chronic kidney disease with stage 1 through stage 4 chronic kidney disease, or unspecified chronic kidney disease; N18.9 Chronic kidney disease, unspecified; E11.39 Type 2 diabetes mellitus with other diabetic ophthalmic complication; H40.89 Other specified glaucoma; M79.644 Pain in right finger(s); Z89.111 Acquired absence of right hand; Z98.49 Cataract extraction status, unspecified eye; Z89.611 Acquired absence of right leg above knee; Z79.899 Other long term (current) drug therapy | CPT/HCPCS: G0463 ==

== ENCOUNTER → 2024-06-02 | Outpatient (CLI) | payer OTHER, MEDICARE ==
[~2024-06-02] MED LIST changes: +LIDOCAINE HCL 4% LTA SOL 4 ML VIAL TP ONE
== END | disposition home or self-care (01) ==
LOC: WHH 08:39
PROVIDERS: ATTEND Family Medicine
DX: L03.011 Cellulitis of right finger (principal); S61.209A Unspecified open wound of unspecified finger without damage to nail, initial encounter; E11.40 Type 2 diabetes mellitus with diabetic neuropathy, unspecified; E11.51 Type 2 diabetes mellitus with diabetic peripheral angiopathy without gangrene; E11.22 Type 2 diabetes mellitus with diabetic chronic kidney disease; I12.9 Hypertensive chronic kidney disease with stage 1 through stage 4 chronic kidney disease, or unspecified chronic kidney disease; N18.9 Chronic kidney disease, unspecified; E11.39 Type 2 diabetes mellitus with other diabetic ophthalmic complication; H40.89 Other specified glaucoma; M79.644 Pain in right finger(s); Z89.111 Acquired absence of right hand; Z98.49 Cataract extraction status, unspecified eye; Z89.611 Acquired absence of right leg above knee; Z79.899 Other long term (current) drug therapy; X58.XXXA Exposure to other specified factors, initial encounter; Y93.89 Activity, other specified; Y92.89 Other specified places as the place of occurrence of the external cause; Y99.8 Other external cause status
CPT/HCPCS: 87070; G0463

== ENCOUNTER → 2024-06-09 | Outpatient (CLI) | payer OTHER, MEDICARE ==
[~2024-06-09] MED LIST changes: -LIDOCAINE HCL 4% LTA SOL 4 ML VIAL TP ONE
== END | disposition home or self-care (01) ==
LOC: WHH 08:36
PROVIDERS: ATTEND Family Medicine
DX: L03.011 Cellulitis of right finger (principal); S61.209D Unspecified open wound of unspecified finger without damage to nail, subsequent encounter; E11.40 Type 2 diabetes mellitus with diabetic neuropathy, unspecified; E11.51 Type 2 diabetes mellitus with diabetic peripheral angiopathy without gangrene; E11.22 Type 2 diabetes mellitus with diabetic chronic kidney disease; I12.9 Hypertensive chronic kidney disease with stage 1 through stage 4 chronic kidney disease, or unspecified chronic kidney disease; N18.9 Chronic kidney disease, unspecified; E11.39 Type 2 diabetes mellitus with other diabetic ophthalmic complication; H40.89 Other specified glaucoma; M79.644 Pain in right finger(s); Z89.111 Acquired absence of right hand; Z98.49 Cataract extraction status, unspecified eye; Z89.611 Acquired absence of right leg above knee; Z79.899 Other long term (current) drug therapy; X58.XXXD Exposure to other specified factors, subsequent encounter
CPT/HCPCS: G0463; A4450

== ENCOUNTER → 2024-06-16 | Outpatient (CLI) | payer OTHER, MEDICARE | END | disposition home or self-care (01) | LOC: WHH 08:58 | PROVIDERS: ATTEND Family Medicine | DX: L03.011 Cellulitis of right finger (principal); S61.209D Unspecified open wound of unspecified finger without damage to nail, subsequent encounter; E11.40 Type 2 diabetes mellitus with diabetic neuropathy, unspecified; E11.51 Type 2 diabetes mellitus with diabetic peripheral angiopathy without gangrene; E11.22 Type 2 diabetes mellitus with diabetic chronic kidney disease; I12.9 Hypertensive chronic kidney disease with stage 1 through stage 4 chronic kidney disease, or unspecified chronic kidney disease; N18.9 Chronic kidney disease, unspecified; E11.39 Type 2 diabetes mellitus with other diabetic ophthalmic complication; H40.89 Other specified glaucoma; M79.644 Pain in right finger(s); Z89.111 Acquired absence of right hand; Z89.611 Acquired absence of right leg above knee; Z79.899 Other long term (current) drug therapy; Z98.49 Cataract extraction status, unspecified eye; X58.XXXD Exposure to other specified factors, subsequent encounter | CPT/HCPCS: G0463 ==